=== PATIENT | male | born 1950 | race Caucasian/White ===

== ENCOUNTER 2022-12-09 16:30 | Outpatient (OUT) | payer MEDICARE, SELFPAY ==
[2022-12-09 17:37] LABS: Prostate Specific Antigen Dx 5.65 ng/mL (<=4.00)
== END 2022-12-09 16:31 | disposition home or self-care (01) ==
PROVIDERS: PCP Family Medicine; Visit Provider Urology
DX: R97.20 Elevated prostate specific antigen [PSA] (principal)
CPT/HCPCS: 36415; 84153

== ENCOUNTER 2023-08-19 08:28 | Outpatient (OUT) | payer MEDICARE, SELFPAY ==
[2023-08-19 10:11] LABS: Prostate Specific Antigen Dx 6.82 ng/mL (<=4.00)
== END 2023-08-19 08:29 | disposition home or self-care (01) ==
LOC: LAB 08:29
PROVIDERS: PCP Family Medicine; Visit Provider Urology
DX: C61 Malignant neoplasm of prostate (principal)
CPT/HCPCS: 36415; 84153

== ENCOUNTER 2023-12-27 09:30 | Outpatient (OUT) | payer MEDICARE, SELFPAY ==
--- OUTSIDE RECORDS SUMMARY | 2023-12-27 09:41 | XMS_ITS | CCD ---
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 Name Role Phone HOUSE, DR CORTES Primary Care Unavailable HOUSE, DR COTRES Admitting Unavailable HOUSE, DR CORTES Attending Unavailable HOUSE, DR CORTES Consulting Unavailable HOUSE, DR CORTES Primary Care Unavailable HOUSE, DR CORTES Admitting Unavailable HOUSE, DR CORTES Attending Unavailable HOUSE, DR CORTES Consulting Unavailable Huber Rosas Primary Care Physician Renée Groves Unavailable MD Liu Smith Attending Provider [phone] NON STAFF Primary Care Provider Huber Miles Primary Care Physician NON STAFF Primary Care Unavailable Liu Gold Attending Unavailable Gold, Liu Admitting Unavailable HUBER ROSAS Primary Care Physician Liu GOLD Attending Unavailable GOLD, Liu Baker Attending Unavailable GOLD, Liu Baker Attending Unavailable GOLD, Liu Baker Attending Unavailable GOLD, Liu Baker Admitting Unavailable GOLD, Liu Baker Attending Unavailable GOLD, Liu Baker Referring Unavailable KY, CRUZITO Cheema Admitting Unavailable KY, CRUZITO Cheema Attending Unavailable GOLD, Liu Baker Admitting Unavailable GOLD, Liu Baker Attending Unavailable GOLD, Liu R Admitting Unavailable GOLD, Liu R Attending Unavailable GOLD, Liu R Attending Unavailable KY, CRUZITO E Attending Unavailable GOLD, Liu R Attending Unavailable GOLD, iLu R Attending Unavailable Allergies Allergy Classification Reported Allergen(s) Allergy Type Date of Onset Reaction(s) Facility (13 sources) Simvastatin; Translations: [simvastatin] Drug Allergy Malaise (finding) [facility] (1 source) Unable to Assess Drug allergy (disorder) 3 [facility] Repository Medications Current Medications Medication Drug Class(es) Dates Sig (Normalized) Sig (Original) cephalexin 500 mg oral capsule (4 sources) Cephalosporin Antibacterial Start: 07-05-2023 End: 07-12-2023 take 1 capsule by mouth every twelve hours Keflex 500 mg Cap 500 mg = 1 cap(s), Oral, q12hr, X 7 day(s), # 14 cap(s), Refills(s) 0, Pharmacy: [facility]/pharmacy #[id number], 189, cm, 04/23/23 11:48:00 EST, Height/Length Dosing, 95.2, kg, 04/23/23 11:48:00 EST, Weight Dosing Start Date: 07/05/23 Stop Date: 07/12/23 Status: Ordered Start: 09-30-2022 End: 10-07-2022 take 1 capsule by mouth every twelve hours cephalexin 500 mg Cap 500 mg = 1 cap(s), Oral, q12hr, X 7 day(s), # 14 cap(s), Refills(s) 0, Pharmacy: [facility]/pharmacy #[id number], 189, cm, 09/30/22 17:16:00 EDT, Height/Length Dosing, 98, kg, 09/30/22 17:16:00 EDT, Weight Dosing Start Date: 09/30/22 Stop Date: 10/07/22 Status: Ordered ciprofloxacin 500 mg oral tablet (6 sources) Quinolone Antimicrobial Start: 03-18-2023 End: 03-25-2023 Cipro 500 mg Tab 500 mg = 1 tab(s), Oral, q12hr, Start 3 days prior to procedure, X 7 day(s), # 14 tab(s), Refills(s) 0, Pharmacy: [facility]/pharmacy #[id number], 189, cm, 01/15/23 10:11:00 EDT, Height/Length Dosing, 95, kg, 01/15/23 10:11:00 EDT, Weight Dosing Start Date: 03/18/23 Stop Date: 03/25/23 Status: Ordered Start: 09-29-2022 take 1 tablet by hollis th once daily, then take 1 tablet by mouth once Cipro 500 mg Tab See Instructions, 1 tab po once day prior to cysto and 1 tab po once following cysto, # 2 tab(s), Refills(s) 0, Pharmacy: [facility]/pharmacy #[id number], 189, cm, 09/29/22 12:16:00 EDT, Height/Length Dosing, 98, kg, 09/29/22 12:16:00 EDT, Weight Dosing Start Date: 09/29/22 Status: Ordered 3 ml insulin, regular, human 100 unt/ml pen injector (12 sources) Insulin Start: 09-29-2022 Relion R FlexPen 100 units/mL injectable solution Refills(s) 0 Start Date: 09/29/22 Status: Ordered levoFLOXacin 500 mg oral tablet (1 source) Quinolone Antimicrobial Start: 11-16-2022 End: 12-07-2022 take 1 tablet by mouth every twenty-four hours Levaquin 500 mg Tab 500 mg = 1 tab(s), Oral, q24hr, X 21 day(s), # 21 tab(s), Refills(s) 0, Pharmacy: [facility]/pharmacy #[id number], 189, cm, 11/16/22 11:08:00 EDT, Height/Length Dosing, 95, kg, 11/16/22 11:08:00 EDT, Weight Dosing Start Date: 11/16/22 Stop Date: 12/07/22 Status: Ordered sulfamethoxazole 800 mg / trimethoprim 160 mg oral tablet (4 sources) Dihydrofolate Reductase Inhibitor Antibacterial, Sulfonamide Antimicrobial Start: 08-23-2023 End: 09-13-2023 Bactrim D.S. 800 mg-160 mg Tab 1 tab(s), Oral, BID for 21 day(s), 42 tab(s), Refill(s) 0, [facility]/pharmacy #[id number], 189, cm, 08/23/23 11:46:00 EDT, Height/Length Dosing, 97.8, kg, 08/23/23 11:46:00 EDT, Weight Dosing Start Date: 08/23/23 Stop Date: 09/13/23 Status: Ordered Start: 08-23-2023 End: 11-21-2023 Bactrim D.S. 800 mg-160 mg T ab 1 tab(s), Oral, Daily for 30 day(s), 30 tab(s), Refill(s) 2, Start taking after completion of 3 week antibiotic course., [facility]/pharmacy #[id number], 189, cm, 08/23/23 11:46:00 EDT, Height/Length Dosing, 97.8, kg, 08/23/23 11:46:00 EDT, Weight Dosing Start Date: 08/23/23 Stop Date: 11/21/23 Status: Ordered Start: 03-19-2023 End: 03-29-2023 Bactrim D.S. 800 mg-160 mg T ab 1 tab(s), Oral, BID for 10 day(s), 20 tab(s), Refill(s) 0, [facility]/pharmacy #[id number], 189, cm, 01/15/23 10:11:00 EDT, Height/Length Dosing, 95, kg, 01/15/23 10:11:00 EDT, Weight Dosing Start Date: 03/19/23 Stop Date: 03/29/23 Status: Ordered Completed/Discontinued Medications Medication Drug Class(es) Dates Sig (Normalized) Sig (Original) levothyroxine sodium 0.3 mg oral tablet (9 sources) l-Thyroxine Start: 07-26-2018 take 1 tablet by mouth once daily Synthroid 300 mcg (0.3 mg) oral tablet 300 microgram = 1 tab(s), Oral, Daily, Refills(s) 0, Thyroid Start Date: 07/26/18 Status: Ordered Problems Problem Classification Problem Date Documented Date Episodic/Chronic Cancer of prostate (4 sources) Malignant tumor of prostate; Translations: [Malignant neoplasm of prostate] Onset: 08-23-2023 04-23-2023 Chronic Diabetes mellitus without complication (13 sources) Glycosuria; Translations: [Glycosuria] Onset: 09-29-2022 Episodic Fever of unknown origin (1 source) Fever, unspecified; Translations: [FEVER UNSPECIFIED] Onset: 03-08-2022 Episodic Genitourinary symptoms and ill-defined conditions (20 sources) Microscopic hematuria; Translations: [Other microscopic hematuria] Onset: 09-29-2022 Episodic Hyperplasia of prostate (16 sources) Benign prostatic hypertrophy with outflow obstruction; Translations: [Benign prostatic hyperplasia with lower urinary tract symptoms] Onset: 09-29-2022 Chronic Inflammatory conditions of male genital organs (11 sources) Prostatitis; Translations: [Inflammatory disease of prostate, unspecified] Onset: 11-16-2022 Episodic Other male genital disorders (3 sources) Atypical small acinar proliferation of prostate 04-23-2023 Episodic Other male genital disorders (1 source) Dysplasia of prostate; Translations: [Atypical small acinar proliferation of prostate] Onset: 08-23-2023 Episodic Other screening for suspected conditions (not mental disorders or infectious disease) (16 sources) Raised prostate specific antigen; Translations: [Elevated prostate specific antigen [PSA]] Onset: 09-29-2022 Episodic Other skin disorders (4 sources) Rash and other nonspecific skin eruption; Translations: [RASH OTH NONSPECIFIC SKIN ERUPTION] Onset: 03-05-2022 Episodic Thyroid disorders (12 sources) Hypothyroidism 09-29-2022 Chronic Urinary tract infections (19 sources) Urinary tract infection, site not specified; Translations: [Urinary tract infectious disease] Onset: 06-27-2021 Episodic Results Test Name Value Interpretation Reference Range Facil ity Ambulatory Visit Summaryon 0 08-23-2023 Ambulatory Visit Summary HALINA RASHID :1950 Visit Date:08/23/2023 Ambulatory Visit Instructions Your Diagnosis Prostate cancer Atypical small acinar proliferation of prostate Urinary retention Prostatitis BPH with obstruction/lower urinary tract symptoms Microhematuria Your Care Team Attending Physician - Liu GOLD MD Primary Care Physician - HUBER ROSAS DO This Is Your Medications List sulfamethoxazole-tr imethoprim (Bactrim D.S. 800 mg-160 mg Tab) sulfamethoxazole-tr imethoprim (Bactrim D.S. 800 mg-160 mg Tab) Contact prescribing physician if questions or concerns insulin regular (Relion R FlexPen 100 units/mL injectable solution) Procedures Performed Transrectal biopsy of prostate using ultrasound guidance (04/06/2023), Cystoscopy (10/13/2022), Urodynamics (10/13/2022), Cataract extraction and insertion of intraocular lens (08/09/2018), Cataract extraction and insertion of intraocular lens, Hernia, Insertion of coronary artery stent. Discharge Vitals Heart Rate (Peripheral) 80 Respiratory Rate 16 Blood Pressure 132/84 Height 189 cm Height 74 in Weight 97.8 kg Weight 215.16 lb BMI 27.38 What to do next Scheduled Follow-Up Appointments Wednesday 10:45 AM EDT With: Liu GOLD MD Where: [facility] Patient Educationon 08-23-19 Patient Education Infectious Disease Prostatitis Prostatitis is swelling or inflammation of the prostate gland, also called the prostate. This gland is about 1.5 inches wide and 1 inch high, and it is involved in making semen. The prostate is located below a man's bladder, in front of the rectum. There are four types of prostatitis: ? Chronic prostatitis (CP), also called chronic pelvic pain syndrome (CPPS). This is the most common type of prostatitis. It is associated with increased muscle tone in the area between the hip bones (pelvic area), around the prostate. This type is also known as a pelvic floor disorder. ? Chronic bacterial prostatitis. This type usually results from an acute bacterial infection in the prostate gland that keeps coming back or has not been treated properly. The symptoms are less severe than those caused by acute bacterial prostatitis, which lasts a shorter time. ? Asymptomatic inflammatory prostatitis. This type does not have symptoms and does not need treatment. This is diagnosed when tests are done for other disorders of the urinary tract or reproductive tract. ? Acute bacterial prostatitis. This type starts quickly and results from an acute bacterial infection in the prostate gland. It is usually associated with a bladder infection, high fever, and chills. This is the least common type of prostatitis. What are the causes? Bacterial prostatitis is caused by an infection from bacteria. Chronic nonbacterial prostatitis may be caused by: ? Factors related to the nervous system. This system includes thebrain, spinal cord, and nerves. ? An autoimmune response. This happens when the body's disease-fighting system attacks healthy tissue in the body by mistake. ? Psychological factors. These have to do with how the mind works. The causes of the other types of prostatitis are usually not known. What are the signs or symptoms? Symptoms of this condition depend on the type of prostatitis you have. Acute bacterial prostatitis Symptoms may include: ? Pain or burning during urination. ? Frequent and sudden urges to urinate. ? Trouble starting to urinate. ? Fever. ? Chills. ? Pain in your muscles or joints, lower back, or lower abdomen. Other types of prostatitis Symptoms may include: ? Sudden urges to urinate, or urinating often. ? Trouble starting to urinate. ? Weak urine stream. ? Dribbling after urination. ? Discharge coming from the penis. ? Pain in the testicles, the penis, or the tip of the penis. ? Pain in the area in front of the rectum and below the scrotum (perineum). ? Pain when ejaculating. How is this diagnosed? This condition may be diagnosed based on: ? A physical and medical exam. ? A digital rectal exam. For this, the health care provider may use a finger to feel the prostate. ? A urine test to check for bacteria. ? A semen sample or blood tests. ? Ultrasound. ? Urodynamic tests to check how your body handles urine. ? Cystoscopy to look inside your bladder or inside the part of your body that drains urine from the bladder (urethra). How is this treated? Treatment for this condition depends on the type of prostatitis. Treatment may involve: ? Medicines to relieve pain or inflammation, or to help relax your muscles. ? Physical therapy. ? Heat therapy. ? Biofeedback. These techniques help you control certain body functions. ? Relaxation exercises. ? Antibiotic medicine, if your condition is caused by bacteria. ? Sitz baths. These warm water baths help to relax your pelvic floor muscles, which helps to relieve pressure on the prostate. Follow these instructions at home: Medicines ? Take [id number] and prescription medicines only as told by your health care provider. ? If you were prescribed an antibiotic medicine, take it as told by your health care provider. Do not stop using the antibiotic even if you start to feel better. Managing pain and swelling ? Take sitz baths as directed by your health care provider. For a sitz bath, sit in warm water that is deep enough to cover your hips and buttocks. ? If directed, apply heat to the affected area as often as told by your health care provider. Use the heat source that your health care provider recommends, such as a moist heat pack or a heating pad. ? Place a towel between your skin and the heat source. ? Leave the heat on for 20?30 minutes. ? Remove the heat if your skin turns bright red. This is especially important if you are unable to feel pain, heat, or cold. You may have a greater risk of getting burned. General instructions ? Do exercises as told by your health care provider, if you were prescribed physical therapy, biofeedback, or relaxation exercises. ? Keep all follow-up visits as told by your health care provider. This is important. Where to find more information ? [employer] [place] [employer] and [employer]: (more content not included)... Normal [facility] Urology Office/Clinic Noteon 08-23-2023 Urology Office/Clinic Note Chief Complaint 4m PSA ACTIVE SURVEILLANCE HPI Staff 4 month f/u with PSA for ACTIVE SURVEILLANCE Dx: prostate cancer, atypical small acinar proliferation of prostate, urinary retention, BPH with obstruction, prostatitis and microhematuria. PSA: 08/19/23 - 6.52 Pt called our office 07/05/23 c/o cloudy urine & urethral discomfort. +C&S 07/05/23. >100,000 cfu/ml Serratia marcescens. Treated with Bactrim DS BID for 7 days. Finished Bactrim. Urine was clear for 2-3 days, then returned to cloudy with odor. Has been like this since then. CIC 6-7x/day. Voids very little on his own without catheter. Denies pain/burning with cathing. Did have some bleeding yesterday while cathing himself. Does not think abx scripts are long enough for his infections. History of Present Illness Tests reviewed: reviewed UA, PSA I have reviewed the previous health record information and history for this patient from Dr. Gold. I have reviewed and verified the staff HPI to be accurate for this encounter. Review of Systems PHQ Score Initial Depression Screen Score: 0 SCORE ROS - Provider Constitutional: denies weight loss, denies hot flashes. Eyes: denies eye problems. Gastrointestinal: denies nausea, denies vomiting. Cardiovascular: denies chest pain or angina. Integumentary: no dryness Musculoskeletal: denies musculoskeletal symptoms. ENMT: denies otolaryngeal symptoms. Respiratory: no shortness of breath. Heme/Lymph: denies easy bleeding tendency, denies easy bruising tendency. Psychiatric: no confusion, no anxiety. Genitourinary: See HPI. Physical Exam Vitals & Measurements HR: 80(Peripheral) RR: 16 BP: 132/84 HT: 74 in HT: 189 cm WT: 97.8 kg WT: 215.16 lb BMI: 27.38 General Appearance: alert, no distress, well nourished, well developed male. Assessment/Plan 1. Prostate cancer (C61: Malignant neoplasm of prostate) PSA: 10/03/16 - 2.45 10/11/17 - 2.89 08/06/20 - 3.73 01/13/21 - 5.42 09/29/22 - 8.6 (prostatitis) 12/09/22 - 5.65 (after abx tx) 08/19/23 - 6.82 MRI of prostate 03/03/23 - 7 x 7 mm lesion involving the posterior lateral aspect of the right peripheral zone. S/p TRUS/bx 04/06/23 - Maria Isabel 6 (3+3) GG1. 8% of core involvement. PSA has increased from prior but may be due to infection, see #4. -Repeat PSA in 1 month, after completion of abx course -F/u in 4 mos w/ another PSA 2. 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 See #1. 3. Urinary retention (R33.9: Retention of urine, unspecified) Pt had 18 Fr catheter placed at [facility] 09/29/22 and presented to [facility] the following day for seeing blood in his catheter bag. Pt was tx'd with Keflex 500mg as a positive ucx was present at that time. S/p Urodynamics 10/13/22 - unable to void, placed with 14F coude catheter. Pt is obstructed endoscopically. MRI of prostate 03/03/23 Urinary bladder appears trabeculated with distal hydroureter. Finding suggests bladder outlet obstruction. CIC 6-7x/day (4-5x). Reports up to 8x in a 24 hr period. Minimal voids on his own. -Cont CIC 4. Prostatitis (N41.9: Inflammatory disease of prostate, unspecified) Positive UCx: 07/29/22 - (Dr Rosas's office) LARGE Leuk NEG Nitrate LARGE blood, Tx'd with Levaquin 500mg 09/29/22 and 09/30/22 - E. faecalis, tx'd with Keflex 500mg then switched to Cipro Pt had neg culture 03/2023 prior to bx. Pt was tx'd w/ Bactrim due to suspicious UA. Pt called our office 07/05/23 c/o cloudy urine and urethral discomfort. UCx >100k Serratia marcescens, tx'd w/ Bactrim DS bid x7 days. States after finishing abx course his urine was clear for 2 days but became cloudy again. UA today shows small blood and large leuks. Discussed infection may be related to CIC. -Take Bactrim DS bid x3 weeks. Then take Bactrim DS qd x3 mos. 5. 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 MRI of prostate 03/03/23 BPH changes with extruded PBH nodule causing massa effect upon the blase of the left seminal vesicle. Pt has never been on any BPH medications. 6. Microhematuria (R31.29: Other microscopic hematuria) S/p Cysto 10/13/22 - Erythematous mucosa diffusely indicative of cystitis, no bt. Follow-up With When Contact Information Liu GOLD MD, URL [facility] [address], [place] [address] [phone] Additional Instructions: 4 mos w/ 2 PSAs Patient Education Prostatitis I, Dejah Larson, personally scribed for Dr. Gold on 08/23/2023 12:28:50. . Documentation recorded by the scribeDejah, accurately reflects the services(s) I performed and decisions made by me. Authenticated by Dr. Gold on 08/23/2023 12:34:29. Problem List/Past Medical H (more content not included)... Normal [facility] Comment on above: Result Comment: Elec tronically Signed By: Liu GOLD MD\.br\Date and Time Signed: 08/23/23 12:34 EDT\.br\Electronically Co-Signed By: Dejah Larson\.br\Date and Time Co-Signed: 08/23/23 12:29 EDT Lab Reportson 08-22-2023 Lab Reports [id number] 1#[id number] Normal [facility] C Urineon 07-07-2023 Bacteria identified Cx Nom (U) Microbiology PROCEDURE: Urine Culture [R1] SOURCE: U CleanCatch BODY SITE: COLLECTED DATE/TIME: 07/05/2023 14:14 EDT RECEIVED DATE/TIME: 07/05/2023 18:21 EDT START DATE/TIME: 07/05/2023 18:21 EDT FREE TEXT SOURCE: RUSSELL WOOTEN, Liu GOLD MD, Liu Baker FINAL REPORTS Final Report [] Verified Date/Time: 07/07/2023 09:25 EDT >100,000 cfu/ml Serratia marcescens SUSCEPTIBILITY RESULTS LEGEND: S=Susceptible, N/R=Not Reported, Blank=Data not available, or drug not advisable or tested, I=Intermediate, ESBL=Extended spectrum beta-lactamase, R=Resistant, TFG=Thymidine-depen dent strain, GUS=Beta-lactamase positive, LIMA=mcg/m;(mg/L), S*=Predicted susceptible interp, R*=Predicted resistant interp Sermar Antibiotic LIMA Dilutn LIMA Interp Amikacin <=16 S Ampicillin >16 R Ampicillin/ >16/8 R Sulbactam Aztreonam <=4 S Cefazolin >16 R Cefepime <=2 S Cefoxitin 16 R* Ceftazidime <=1 S Ceftazidime/ <=8 S Avibactam Ceftriaxone <=1 S Ciprofloxacin <=1 S Ertapenem <=0.5 S Gentamicin <=4 S Levofloxacin <=2 S Meropenem <=1 S Nitrofurantoin >64 R Piperacillin/ <=16 S Tazobactam Tetracycline >8 R Tigecycline <=2 S Tobramycin <=4 S Trimethoprim/ <=2/38 S Sulfa Performing Locations R1: This test was performed at: [facility], [address] [place] [address], [id number]- , , [facility] Comment on above: Performed By: #### [id number] ####[facility] [id number] [place] [address] Ambulatory Visit Summaryon 0 04-23-2023 Ambulatory Visit Summary HALINA RASHID :1950 Visit Date:04/23/2023 Ambulatory Visit Instructions Your Diagnosis Prostate cancer Atypical small acinar proliferation of prostate Urinary retention BPH with obstruction/lower urinary tract symptoms Prostatitis Microhematuria Your Care Team Attending Physician - Liu GOLD MD Primary Care Physician - HUBER ROSAS DO This Is Your Medications List Contact prescribing physician if questions or concerns insulin regular (Relion R FlexPen 100 units/mL injectable solution) Procedures Performed Transrectal biopsy of prostate using ultrasound guidance (04/06/2023), Cystoscopy (10/13/2022), Urodynamics (10/13/2022), Cataract extraction and insertion of intraocular lens (08/09/2018), Cataract extraction and insertion of intraocular lens, Hernia, Insertion of coronary artery stent. Discharge Vitals Heart Rate (Peripheral) 70 Respiratory Rate 16 Blood Pressure 132/87 Height 189 cm Height 74 in Weight 95.2 kg Weight 209.44 lb BMI 26.65 What to do next Scheduled Follow-Up Appointments Wednesday 11:15 AM EDT With: Liu GOLD MD Where: [facility] Patient Educationon 04-23-19 24 Patient Education Oncology Prostate Cancer The prostate is a small gland that produces fluid that makes up semen (seminal fluid). It is located below the bladder in men, in front of the rectum. Prostate cancer is the abnormal growth of cells in the prostate gland. What are the causes? The exact cause of this condition is not known. What increases the risk? You are more likely to develop this condition if: ? You are 65 years of age or older. ? You have a family history of prostate cancer. ? You have a family history of breast and ovarian cancer. ? You have genes that are passed from parent to child (inherited), such as BRCA1 and BRCA2. ? You have Dick syndrome. men and men of descent are diagnosed with prostate cancer at higher rates than other men. The reasons for this are not well understood and are likely due to a combination of genetic and environmental factors. What are the signs or symptoms? Symptoms of this condition include: ? Problems with urination. This may include: ? A weak or interrupted flow of urine. ? Trouble starting or stopping urination. ? Trouble emptying the bladder all the way. ? The need to urinate more often, especially at night. ? Blood in urine or semen. ? Persistent pain or discomfort in the lower back, lower abdomen, or hips. ? Trouble getting an erection. ? Weakness or numbness in the legs or feet. How is this diagnosed? This condition can be diagnosed with: ? A digital rectal exam. For this exam, a health care provider inserts a gloved finger into the rectum to feel the prostate gland. ? A blood test called a prostate-specific antigen (PSA) test. ? A procedure in which a sample of tissue is taken from the prostate and checked under a microscope (prostate biopsy). ? An imaging test called transrectal ultrasonography. Once the condition is diagnosed, tests will be done to determine how far the cancer has spread. This is called staging the cancer. Staging may involve imaging tests, such as a bone scan, CT scan, PET scan, or MRI. Stages of prostate cancer The stages of prostate cancer are as follows: ? Stage 1 (I). At this stage, the cancer is found in the prostate only. The cancer is not visible on imaging tests, and it is usually found by accident, such as during prostate surgery. ? Stage 2 (II). At this stage, the cancer is more advanced than it is in stage 1, but the cancer has not spread outside the prostate. ? Stage 3 (III). At this stage, the cancer has spread beyond the outer layer of the prostate to nearby tissues. The cancer may be found in the seminal vesicles, which are near the bladder and the prostate. ? Stage 4 (IV). At this stage, the cancer has spread to other parts of the body, such as the lymph nodes, bones, bladder, rectum, liver, or lungs. Prostate cancer grading Prostate cancer is also graded according to how the cancer cells look under a microscope. This is called the Cantril score and the total score can range from 6?10, indicating how likely it is that the cancer will spread (metastasize) to other parts of the body. The higher the score, the greater the likelihood that the cancer will spread. ? Maria Isabel 6 or lower: This indicates that the cancer cells look similar to normal prostate cells (well differentiated). ? Cantril 7: This indicates that the cancer cells look somewhat similar to normal prostate cells (moderately differentiated). ? Cantril 8, 9, or 10: This indicates that the cancer cells look very different than normal prostate cells (poorly differentiated). How is this treated? Treatment for this condition depends on several factors, including the stage of the cancer, your age, personal preferences, and your overall health. Talk with your health care provider about treatment options that are recommended for you. Common treatments include: ? Observation for early stage prostate cancer (active surveillance). This involves having exams, blood tests, and in some cases, more biopsies. For some men, this is the only treatment needed. ? Surgery. Types of surgeries include: ? Open surgery (radical prostatectomy). In this surgery, a larger incision is made to remove the prostate. ? A laparoscopic radical prostatectomy. This is a surgery to remove the prostate and lymph nodes through several small incisions. It is often referred to as a minimally invasive surgery. ? A robotic radical prostatectomy. This is laparoscopic surgery to remove the prostate and lymph nodes with the help of robotic arms that are controlled by the surgeon. ? Cryoablation. This is surgery to freeze and destroy cancer cells. ? Radiation treatment. Types of radiation treatment include: ? External beam radiation. This type aims beams of radiation from outside the body at the prostate to destroy cancerous cells. ? Brachytherapy. This type uses radioactive needles, seeds, wires, or tubes that are implanted into the prostate gland. Like external be (more content not included)... Normal [facility] Urology Office/Clinic Noteon 04-23-2023 Urology Office/Clinic Note Chief Complaint elevated PSA HPI Staff S/P TRUS/Bx 01/15/23 DX: Urinary Retention, BPH, Elevated PSA, Prostatitis & Microscopic Hematuria CIC 4-5x daily MRI Prostate 03/03/23 Pt is here today to review path report Dysuria: no Incomplete bladder emptying: CIC 4-5x daily Hematuria: no Frequency: no Urgency: no Nocturia: 2x Stream: weak and only gets a little out Leaking: no Post void dripping: no Wearing pads/ Depends: no Urge incontinence: no Stress incontinence: no Incontinence without Sensory Awareness: no Abdominal pain: no Flank pain: no Sexual complaints: no History of Present Illness Tests reviewed: reviewed MRI and path. I have reviewed the previous health record information and history for this patient from Dr. Gold. I have reviewed and verified the staff HPI to be accurate for this encounter. There have been no associated fever, chills, flank pain, or blood in the urine. Denies any urinary infections since last encounter. Review of Systems PHQ Score Initial Depression Screen Score: 0 SCORE ROS - Provider Constitutional: denies weight loss, denies hot flashes. Eyes: denies eye problems. Gastrointestinal: denies nausea, denies vomiting. Cardiovascular: denies chest pain or angina. Integumentary: no dryness Musculoskeletal: denies musculoskeletal symptoms. ENMT: denies otolaryngeal symptoms. Respiratory: no shortness of breath. Heme/Lymph: denies easy bleeding tendency, denies easy bruising tendency. Psychiatric: no confusion, no anxiety. Genitourinary: See HPI. Physical Exam Vitals & Measurements HR: 70(Peripheral) RR: 16 BP: 132/87 HT: 74 in HT: 189 cm WT: 95.2 kg WT: 209.44 lb BMI: 26.65 General Appearance: alert, no distress, well nourished, well developed male. Assessment/Plan 1. Prostate cancer (C61: Malignant neoplasm of prostate) PSA: 10/03/16 - 2.45 10/11/17 - 2.89 08/06/20 - 3.73 01/13/21 - 5.42 09/29/22 - 8.6 (prostatitis) 12/09/22 - 5.65 (after abx tx) MRI of prostate 03/03/23 shows 7 x 7 mm lesion involving the posterior lateral aspect of the right peripheral zone. S/p TRUS/bx 04/06/23. Path reveals Cantril 6 (3+3) GG1. 8% of core involvement. The pathology report was reviewed with the patient in detail today. The report confirms evidence of malignancy. This was discussed with the patient and all questions were answered in terms the patient could understand completely, along with the implications. We will be making plans for further treatment and evaluation as the results demand. The patient understands and agrees with this plan. The pathology report, which shows the presence of prostate cancer, was disclosed to the patient in detail today. I discussed with the patient all the treatment options, including active surveillance, radical prostatectomy either by open, laparoscopic, or laparoscopic robotic technique. I discussed the radiation therapy options, including prostate brachytherapy, external beam radiation therapy, and combinations of the two. Lupron hormonal therapy was also discussed. I went over the pros and cons of each therapy today. -Proceed w/ active surveillance -Follow up in 4 months w/ PSA 2. 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 See #1. 3. Urinary retention (R33.9: Retention of urine, unspecified) Pt had 18 Fr catheter placed at OV 09/29/22 and presented to [facility] the following day for seeing blood in his catheter bag. Pt was tx'd with Keflex 500mg as a positive ucx was present at that time. S/p Urodynamics 10/13/22 - unable to void, placed with 14F coude catheter. Pt is obstructed endoscopically. MRI of prostate 03/03/23 Urinary bladder appears trabeculated with distal hydroureter. Finding suggests bladder outlet obstruction. Continues CIC 4-5x day. -Cont CIC 4. 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 MRI of prostate 03/03/23 BPH changes with extruded PBH nodule causing massa effect upon the blase of the left seminal vesicle. Pt has never been on any BPH medications. Discussed TURP along with the possible risk of not being able to void. See #3. 5. Prostatitis (N41.9: Inflammatory disease of prostate, unspecified) Positive UCx: 07/29/22 - (Dr Rosas's office) LARGE Leuk NEG Nitrate LARGE blood, Tx'd with Levaquin 500mg 09/29/22 and 09/30/22 - E. faecalis, tx'd with Keflex 500mg then switched to Cipro Pt had neg culture 03/2023 prior to bx. Pt was tx'd w/ Bactrim due to suspicious UA. Pt states his urine is no longer cloudy, denies dysuria. No UA provided today. Directed pt to call our office if burning returns. 6. Microhematuria (R31.29: Other microscopic hematuria) S/p Cysto 10/13/22 - Erythematous mucosa diffusely indicative of cys (more content not included)... Normal [facility] Comment on above: Result Comment: Elec tronically Signed By: Liu GOLD MD\.br\Date and Time Signed: 04/23/23 12:26 EST\.br\Electronically Co-Signed By: Vera Canales.br\Date and Time Co-Signed: 04/23/23 12:24 EST Prostate Histology ([facility]) on 04-14-2023 Prostate Histology Diagnosis Info Invalid Interpretation Code [facility] Comment on above: Result Comment: A:Pr ostate,Left Lateral Base:Needle Biopsy Interpretation - - Benign prostatic tissue with seminal vesicle. MicroScopic Description - B:Prostate,Left Lateral Mid:Needle Biopsy Interpretation - - Benign prostatic tissue. MicroScopic Description - C:Prostate,Left Lateral [place]:Needle Biopsy Interpretation - - Benign prostatic tissue. MicroScopic Description - D:Prostate,Left Base:Needle Biopsy Interpretation - - Benign prostatic tissue. MicroScopic Description - E:Prostate,Left Mid:Needle Biopsy Interpretation - - Atypical small acinar glands. MicroScopic Description - F:Prostate,Left [place]:Needle Biopsy Interpretation - - Benign prostatic tissue with patchy chronic inflammation. MicroScopic Description - G:Prostate,Right Base:Needle Biopsy Interpretation - - Acinar adenocarcinoma of prostate; Cantril score 6(3+3); Tumor measures 0.1 cm in length; 8% of the core involved by tumor; 1 of 1 core involved. MicroScopic Description - H:Prostate,Right Mid:Needle Biopsy Interpretation - - Benign prostatic tissue with patchy chronic inflammation. MicroScopic Description - I:Prostate,Right [place]:Needle Biopsy Interpretation - - Benign prostatic tissue. MicroScopic Description - J:Prostate,Right Lateral Base:Needle Biopsy Interpretation - - Benign prostatic tissue. MicroScopic Description - K:Prostate,Right Lateral [place]:Needle Biopsy Interpretation - - Benign prostatic tissue. MicroScopic Description - Gross Description Site ID:A color brantley-white fixative Formalin cores 1 units cm stringy Site ID:B color brantley-white fixative Formalin cores 1 units cm Site ID:C color brantley-white fixative Formalin cores 1 units cm wispy Site ID:D color brantley-white fixative Formalin cores 1 units cm Site ID:E color brantley-white fixative Formalin cores 1 units cm Site ID:F color brantley-white fixative Formalin cores 1 units cm Site ID:G color brantley-white fixative Formalin cores 1 units cm stringy Site ID:H color brantley-white fixative Formalin cores 5 units cm adhered to sponge Site ID:I color brantley-white fixative Formalin cores 1 units cm Site ID:J color brantley-white fixative Formalin cores 1 units cm partially stringy Site ID:K color brantley-white fixative Formalin cores 1 units cm Highest grade group: Maria Isabel score 3+3=6, grade group 1. Highest percentage of core involvement: 8% CPT code: 59844 x 12 Electronically signed by : on: 04/14/2023 13:46:08 Performed By: #### 1 [id number] ####[facility] [address] [place] [address] Consent for Procedure/Surger yon 04-06-2023 Consent for Procedure/Surgery [id number].. [id number] 779#1.00TIFF [facility] Consent for Treatmenton 03-22 Consent for Treatment [id number] C5#1.00TIFF Normal [facility] IntraOperative Documentson 0 04-06-2023 IntraOperative Documents [id number] 173#1.00TIFF [facility] IntraOperative Documents [id number]#1.00TIFF [facility] Main OR Intraoperative Recor don 04-06-2023 Main OR Intraoperative Record IntraOp Document Type [facility]O Summary Primary Physician: Liu GOLD MD Finalized Date/Time: 04/06/23 13:22:01 Pt. Name: HALINA RASHID /Sex: 1950 Male Med Rec #: [id number] Physician: Liu GOLD MD Financial #: [id number] Pt. Type: O Room/Bed: / Admit/Disch: 04/06/23 12:14:00 - Institution: Case Times FTURO Entry 1 Patient Times In Room 04/06/23 12:59:00 Out Room 04/06/23 13:26:00 Procedure Times Start 04/06/23 13:06:00 Stop 04/06/23 13:19:00 Anesthesia Times Last Modified By: MIKAYLA Jain RN, Joan 04/06/23 13:21:51 Case Attendance FTURO Entry 1 Entry 2 Entry 3 Case Attendee Liu GOLD MD, RN, VICENTEOR, Justine Mondragon Role Performed Surgeon - Primary Director Of [employer] - Primary Scrub - Primary Time In 04/06/23 12:59:00 04/06/23 12:59:00 04/06/23 12:59:00 Time Out 04/06/23 13:26:00 04/06/23 13:26:00 04/06/23 13:26:00 Procedure PROSTATE TRANSRECTAL PROSTATE TRANSRECTAL PROSTATE TRANSRECTAL ULTRASOUND WITH BIO(.) ULTRASOUND WITH BIO(.) ULTRASOUND WITH BIO(.) Comments Last Modified By: Cristobal VARGAS, VICENTEOR, Cristobal VARGAS, VICENTEOR, Cristobal VARGAS, VICENTEOR, Joan 04/06/23 Joan 04/06/23 Joan 04/06/23 13:21:52 13:21:52 13:21:52 Surgical Procedures FTURO Entry 1 Procedure Description Procedure PROSTATE TRANSRECTAL Modifiers . ULTRASOUND WITH BIOPSY Surgeon Description TRUS BIOPSY Primary Procedure Yes Primary Surgeon Liu GOLD MD Start 04/06/23 13:06:00 Stop 04/06/23 13:19:00 Anesthesia Type Local Surgical Service Urology Wound Class 2 - Clean-Contaminated Last Modified By: Cristobal VARGAS, VICENTEOR, Joan 04/06/23 13:21:54 General Case Data FTURO Pre-Care Text: Classifies surgical wound, implements aseptic technique, initiates traffic control Entry 1 Case Information OR URO 1 FT Case Level None Wound Class 2 - Clean-Contaminated Specialty Urology Preop Diagnosis ELEVATED PSA, PIRAD 4 Postop Same As Preop Yes LESION Postop Diagnosis ELEVATED PSA, PIRAD 4 Outcomes Met? Yes LESION Last Modified By: MIKAYLA Jain RN, Ruthann 04/06/23 12:58:26 Post-Care Text: The patient is free from signs and symptoms of infection EU IntraOp - FTURO Pre-Care Text: Implements protective measures prior to operative or invasive procedure, confirms identity before the operative or invasive procedure, verifies operative procedure, surgical site, and laterality Entry 1 EU Perioperative Protocols Procedure(s) PROSTATE TRANSRECTAL Patient Identity Birthday, ID Band ULTRASOUND WITH BIO(.) Verified (select at Check, Patient least 2): Participation Consents / H and P HandP, Surgery/Procedure Operative Site N/A Verified Consent Marking Verified Surgical Site Yes Laterality Verified n/a Verified Procedure Verified Yes Correct Patient Yes Position Verified Availability Equipment, Medication Time Out RUSSELL WOOTEN, Liu Baker, Verified (If Participants MIKAYLA Jain RN, Applicable) Giancarlo Franco Jessica D Time Out Complete 04/06/23 12:58:00 Allergies Reviewed? Yes Allergies Reviewed Self/Patient With Body Position Lateral, right side up Prep Area none Prep Agents None Skin. Condition Unable to Visualize Additional Tissue Specimens Collected Vitals - EU Blood Pressure 146/98 Pulse 104 bpm Respirations 16 br/min SPO2 EBL 0 IandO - EU Total Intake 0 mL Total Output 0 mL Outcomes Met? Yes Last Modified By: MIKAYLA Jain RN, Ruthann 04/06/23 13:01:36 Post-Care Text: The patient is free from signs and symptoms of injury caused by extraneous objects Sign Out FTURO Entry 1 Before Patient Leaves OR Nurse verbally Yes Nurse verbally n/a confirms with the confirms with the team the name of team that the procedure(s) instrument, sponge, recorded and needle counts are correct (or N/A) Nurse verbally n/a Nurse verbally n/a confirms with the confirms with the team how the team whether there specimen is labeled are any equipment (including patient problems to be name), if applicable addressed Sign Out Complete 04/06/23 13:22:00 Last Modified By: MIKAYLA Jain RN, Ruthann 04/06/23 13:21:59 Case Comments Finalized By: MIKAYLA Jain RN, Ruthann Document Signatures Signed By: MIKAYLA Jain RN, Ruthann 04/06/23 13:22 Normal [facility] Main OR Preoperative Recordo n 04-06-2023 Main OR Preoperative Record Holding Area Document Type FTURO Summary Primary Physician: Liu GOLD MD Finalized Date/Time: 04/06/23 13:00:34 Pt. Name: HALINA RASHID Deni CouchB./Sex: 1950 Male Med Rec #: [id number] Physician: Liu GOLD MD Financial #: [id number] Pt. Type: O Room/Bed: / Admit/Disch: 04/06/23 12:14:00 - Institution: Case Times Holding FTURO Pre-Care Text: Verifies consent for planned procedure, identifies individual values and wishes concerning care, includes family members in perioperative teaching Secures patient's records' belongings, and valuables, maintains patient's dignity and privacy, and maintains patient confidentiality Entry 1 In Holding 04/06/23 12:38:00 Outcomes Met? Yes Last Modified By: Fransisca Chadwick RN 04/06/23 12:39:01 Post-Care Text: The patient participates in decisions affecting his or her perioperative plan of care The patient's right to privacy is maintained Surgery Checklist FTURO Entry 1 Patient Birthday, ID Band Procedure History and Physical, Identification: Check, Patient Verification: Surgical Consent, With Participation Patient NPO after Midnight: n/a Personal Items: Cataract Lens Implant, Glasses, Jewelry Personal Items GLASSES; WATCH X 1; Limitations: UP AD ZENY Comment: BILATERAL CATARACT LENS IMPLANTS Complaints of Pain: No Pain Comment: 0/10 Skin Integrity Dry, Warm Vitals - EU Blood Pressure 146/98 Pulse 104 bpm Respirations 16 br/min SPO2 95 % Additional None RN Reviewed Yes Specimens Collected Last Modified By: Fransisca Chadwick RN 04/06/23 12:40:19 Finalized By: MIKAYLA Jain RN, Ruthann Document Signatures Signed By: Fransisca Chadwick RN 04/06/23 12:40 MIKAYLA Jain RN, Ruthann 04/06/23 13:00 Normal [facility] Operative Reporton Operative Report Patient: HALINA RASHID Age: 72 years Sex: Male : 1950 Associated Diagnoses: None Author: Liu GOLD MD Procedure Operative Information Details: Date/ Time: 04/06/2023 13:21:00. Pre-Op Dx: Elevated PSA - R97.20. Post-Op Dx: Same. Anesthesia Type: Local, Periprostatic Nerve Block. Procedure: Transrectal Ultrasound and Transrectal Ultrasound-Guided Biopsy of the Prostate. Complications: None. Risks/Benefits/Info rmed Consent: Surgical risks, benefits, details of the procedure have been explained to the patient, Full informed consent has been obtained. Intraoperative Information Prepped: The patient was brought to the office suite, placed in the modified left lateral Navarro position, The patient was draped appropriately, 80 mg Gentamicin IM injection administered. Procedure: Then 2% Xylocaine jelly was used for intrarectal anesthesia, After waiting several minutes, a well lubricated ultrasound probe was introduced per rectum, The prostate was carefully evaluated in the AP and Sagittal views. Volume: 67 CC. Specimens Removed: A total of 12 biopsies were taken, 6 from each side, and sent to pathology, 2 additional biopsies were taken from the right mid aspect corresponding to the PI-RADS 4 lesion on MRI.. Devices Implanted: None. Postoperative Information Discharge: The patient tolerated the procedure well and was discharged home in satisfactory condition, The patient was instructed to (Finish antibiotics, Avoid strenuous activity, Go to the emergency room for gross bleeding, fever, or chills). Radiology Report Procedure: Transrectal Ultrasound of the Prostate, Transrectal US guided needle biopsy of the prostate. Narrative: Ultrasound probe is introduced and performed in the longitudinal and transverse plains, The gland measures (58 MM Length, 57 MM Width, 39 MM Depth, with a calculated volume of 67 CC), The prostatic capsule and seminal vesicles appear to be within normal limits, The peripheral zone demonstrates No abnormalities, Rest of the prostate demonstrates No abnormalities, Ultrasound guidance was then utilized to obtain 12 biopsies, These were sent to pathology for evaluation, A total of 14 biopsies were taken and sent to pathology.. Normal [facility] Comment on above: Result Comment: Elec tronically Signed By: RUSSELL WOOTEN, Liu House.shaina\Date and Time Signed: 04/06/23 13:22 EST Patient Educationon 04-06-19 Patient Education Custom Transrectal Ultrasound of the Prostate with US guided biopsy ? Even though there are no visible incisions, multiple prostate biopsies have been taken through the rectum and you need to follow some instructions to minimize the risks of bleeding. ? You may see some blood in your urine and stool for up to 1 week (and blood in the semen for several months) ? Diet -You may resume your normal diet, but you may want to avoid alcohol, carbonated drinks, caffeine, and spicy foods, which may increase the irritation from the surgery. -Drink plenty of water to keep the urine clear. ? Activity -You should limit any physical activity for about 48 hours -No heavy lifting or straining (10 pound limit) -No driving a car and limit long car rides for 2 days -No strenuous exercise -No sexual intercourse until this is discussed with your doctor ? Bowels -Try to keep your bowel movements soft to minimize straining to have a bowel movement. -You may use a stool softener or over the counter laxative if needed -Difficult bowel movement may lead to straining and bleeding from the prostate ? Medications -You may resume your home medications unless instructed otherwise -Hold aspirin, ibuprofen, Coumadin (warfarin) and other blood thinners for about two days or until there is no active bleeding unless otherwise instructed -Finish the antibiotic which you have already started ? Things to watch for which would require an Emergency Room visit or call 911: (this is not a complete list) -Persistent or heavy bleeding or blood clots from the rectum or in the urine -Inability to urinate -Fever over 101.5 degrees Fahrenheit, with or without chills -Severe drug reactions with itching, hives or rash -Tenderness or swelling of the calves, chest pain, or shortness of breath ? Please call the office to arrange for your post-operative appointment in 1-2 weeks [phone] or [phone] [facility] Prostate Histology ([facility]) on 04-06-2023 PH Method of Extraction Needle Biopsy [facility] Comment on above: Performed By: #### 1 [id number] ####[facility] [address] [place] [address] PH Number of Jars 2 Invalid Interpretation Code [facility] Comment on above: Performed By: #### 1 [id number] ####[facility] [address] [place] [address] PH Specimen 1 L Apx Prostate Normal [facility] Comment on above: Performed By: #### 1 [id number] ####[facility] [address] [place] [address] PH Specimen 10 R Lat Bse Prost Normal [facility] Comment on above: Performed By: #### 1 [id number] ####[facility] [address] [place] [address] PH Specimen 11 R Lat Mid Prost Normal [facility] Comment on above: Performed By: #### 1 [id number] ####[facility] [address] [place] [address] PH Specimen 12 R Mid Prostate Normal [facility] Comment on above: Performed By: #### 1 [id number] ####[facility] [address] [place] [address] PH Specimen 2 L Base Prostate Normal [facility] Comment on above: Performed By: #### 1 [id number] ####[facility] [address] [place] [address] PH Specimen 3 L Lat Apx Prost Normal [facility] Comment on above: Performed By: #### 1 [id number] ####[facility] [address] [place] [address] PH Specimen 4 L Lat Bse Prost Normal [facility] Comment on above: Performed By: #### 1 [id number] ####[facility] [address] [place] [address] PH Specimen 5 L Mid Prostate Normal [facility] Comment on above: Performed By: #### 1 [id number] ####[facility] [address] [place] [address] PH Specimen 6 L Lat Mid Prost Normal [facility] Comment on above: Performed By: #### 1 [id number] ####[facility] [address] [place] [address] PH Specimen 7 R Apx Prostate Normal [facility] Comment on above: Performed By: #### 1 [id number] ####[facility] [address] [place] [address] PH Specimen 8 R Base Prostate Normal [facility] Comment on above: Performed By: #### 1 [id number] ####[facility] [address] [place] [address] PH Specimen 9 R Lat Apx Prost Normal [facility] Comment on above: Performed By: #### 1 [id number] ####[facility] [address] [place] [address] PH Type of Service Technical Only Normal [facility] Comment on above: Performed By: #### 1 [id number] ####[facility] [address] [place] [address] Ambulatory Visit Summaryon 0 03-25-2023 Ambulatory Visit Summary HALINA RASHID :1950 Visit Date:03/23/2023 Ambulatory Visit Instructions Your Diagnosis Recurrent UTI Your Care Team Attending Physician - CRUZITO MCPHERSON PA-C Primary Care Physician - Huber Rosas DO This Is Your Medications List ciprofloxacin (Cipro 500 mg Tab) insulin regular (Relion R FlexPen 100 units/mL injectable solution) levothyroxine (Synthroid 300 mcg (0.3 mg) oral tablet) sulfamethoxazole-tr imethoprim (Bactrim D.S. 800 mg-160 mg Tab) Procedures Performed Cystoscopy (10/13/2022), Urodynamics (10/13/2022), Cataract extraction and insertion of intraocular lens (08/09/2018), Cataract extraction and insertion of intraocular lens, Hernia, Insertion of coronary artery stent. What to do next Scheduled Follow-Up Appointments Wednesday 1:00 PM EST With: Where: [facility] Wednesday 1:00 PM EST With: Where: [facility] Wednesday 11:00 AM EST With: RUSSELL WOOTEN, Liu Baker Where: [facility] Normal [address] [place] [address]- \.br\ Medications\.br\ What How Much When Instructions\.br \ Unchanged ciprofloxacin (Cipro 500 mg Tab) 1 Tablets By Mouth Every 12 hours Duration: 7 Days Start 3 days prior to procedure \.br\ Unchanged insulin regular (Relion R FlexPen 100 units/ mL injectable solution)\.br\ Unchanged levothyroxine (Synthroid 300 mcg (0.3 mg) oral tablet) 1 Tablets By Mouth Every day\.br\ Unchanged sulfamethoxazole -trimethoprim (Bactrim D.S. 800 mg-160 mg Tab) 1 Tablets By Mouth 2 times a day Duration: 10 Days\.br\ Allergies\.br\ Zocor (Malaise)\.br\ Problems\.br\ Ongoing - Any problem that you are currently receiving treatment for.\.br\ BPH with obstruction/lowe r urinary tract symptoms\.br\ Elevated PSA\.br\ Glucosuria\.br\ Hypothyroid\.br\ Incomplete bladder emptying\.br\ Microhematuria\. br\ Prostatitis\.br\ Recurrent UTI\.br\ Urinary retention\.br\ UTI symptoms\.br\ Patient Survey\.br\ You may receive a survey via text or e-mail asking about your office visit. Please share your experience with us by completing your survey. We appreciate your feedback and thank you for choosing us for your care.\.br\ \.br\ [facility] C Urineon 03-25-2023 Bacteria identified Cx Nom (U) Microbiology PROCEDURE: Urine Culture [R1] SOURCE: U CleanCatch BODY SITE: COLLECTED DATE/TIME: 03/23/2023 11:22 EST RECEIVED DATE/TIME: 03/23/2023 17:48 EST START DATE/TIME: 03/23/2023 17:48 EST FREE TEXT SOURCE: CRUZITO MCPHERSON PA-C, PA-C, JENNIFER E FINAL REPORTS Final Report [] Verified Date/Time: 03/25/2023 06:57 EST 400 cfu/ml Mixed skin contaminants Performing Locations R1: This test was performed at: [facility], [address] [place] [address], [address] , , [facility] Comment on above: Performed By: #### 2 [id number] ####[facility] [address] [place] [id number] C Urineon 03-23-2023 Bacteria identified Cx Nom (U) Microbiology PROCEDURE: Urine Culture [R1] SOURCE: U CleanCatch BODY SITE: COLLECTED DATE/TIME: 03/19/2023 11:39 EST RECEIVED DATE/TIME: 03/19/2023 11:39 EST START DATE/TIME: 03/23/2023 15:39 EST FREE TEXT SOURCE: RUSSELL WOOTEN, Liu GOLD MD, Liu Baker FINAL REPORTS Final Report [] Verified Date/Time: 03/23/2023 15:40 EST Order completed by office in error. No specimen received. Patient credited. 03/23/2023 15:40 CSS. Performing Locations R1: This test was performed at: [facility], [address] [place] [address], [address] [place] [address], [facility] Comment on above: Performed By: #### 2 [id number] ####[facility] [address] [place], [place] [id number] RAD - MRI Reporton 3 RAD - MRI Report [id number] [facility] MR prostate wo/w conon 03-04 MR prostate wo/w con [facility] Main [address] [address] MRI Report Signed Patient: Halina Rashid MR#: [id number] : 1950 Acct:[id number] Age/Sex: 72 / M ADM Date: 03/03/23 Loc: Room: Type: [facility] Attending Dr: Liu Gold MD Copies to: Liu Gold MD Ordering Provider: Liu Gold MD Date of Service: 03/03/23 MR/MR prostate wo/w con: ELEVATED PSA EXAMINATION: MR prostate wo/w con HISTORY: Elevated PSA. COMPARISON: NONE TECHNIQUE: Multiparametric imaging of the prostate gland was performed with IV contrast. FINDINGS: Prostate Dimensions: 5.5 x 4.6 x 5.8 cm Prostate Volume: 76 mL Peripheral Zone: Heterogenous inT2 signal suggestive of prior prostatitis. A wedge-shaped area of T2 hypointensity is identified without significant restricted diffusion likely related to an area of prostatitis. A focal area of T2 hypointensity is seen involving the posterior lateral aspect of the right peripheral zone at the level of the mid gland measuring 7 x 7 mm with restricted diffusion and low ADC value. No gross extra capsular extension is seen. Please see series 4 image 14, series 650 image 12 and series 600 image 12. Central/Transitiona l Zone: BPH changes. Extruded BPH nodule is seen causing mass effect upon the base of the left seminal vesicle. Seminal Vesicles: Unremarkable Neurovascular bundles: Unremarkable. Lymphadenopathy: No evidence of lymphadenopathy. Bladder: Trabeculated without focal lesion. There appears to be distal hydroureter. Bowel: The visualized bowel is without acute abnormality. Peritoneal Cavity: No free fluid. Bones: No suspicious bony lesion. MR/MR prostate wo/w con IMPRESSION: 1. A focal area of T2 hypointensity is seen involving the posterior lateral aspect of the right peripheral zone at the level of the mid gland measuring 7 x 7 mm with restricted diffusion and low ADC value. No gross extra capsular extension is seen. Please see series 4 image 14, series 650 image 12 and series 600 image 12. This appears to be superimposed significant presumed prostatitis changes. PI-RADS4. If biopsy is being contemplated, target of this region is recommended. 2. BPH changes with extruded BPH nodule causing mass effect upon the base of the left seminal vesicle. 3. Urinary bladder appears trabeculated with distal hydroureter. Finding suggests bladder outlet obstruction. Impression dictated by: Ector Kam Jr., D.ONicolas03/04/2023 9:23 AM Dictation Location: [place] [address] Transcribed By: PWS 03/04/23922 Dictated By: Etcor Kam Jr, 03/04/23913 Signed By: 03/04/23922 [facility] ISTAT XRay CREon 03-03-2023 Creatinine [Mass/Vol] 1.7 mg/dL High 0.6-1.3 [facility] Comment on above: Result Comment: ER/E SD physician is notified/shown all ISTAT results. Critical values may be confirmed by laboratory testing if deemed necessary by ER attending doctor. Performed By: #### I SCRE #### [facility] [address] [place] [address] ISTAT GFR 42.303 [facility] Comment on above: Result Comment: PERF ORMED BY: [place] [address] PATHOLOGIST MARKING ROOM SUPERVISOR NORA ADAM M.D. Performed By: #### I SCRE #### [facility] [address] [place] [address] Ambulatory Visit Summaryon 1 Ambulatory Visit Summary HALINA RASHID :1950 Visit Date:01/15/2023 Ambulatory Visit Instructions Your Diagnosis Incomplete bladder emptying BPH with obstruction/lower urinary tract symptoms Elevated PSA Prostatitis Microhematuria Tests Performed MRI Pelvis (Soft Tissue) w/ + w/o contrast -- Results Pending -- Please visit your patient portal for your results or contact your primary care physician. Your Care Team Attending Physician - RUSSELL WOOTEN, Liu Baker Primary Care Physician - Huber Rosas DO This Is Your Medications List Contact prescribing physician if questions or concerns insulin regular (Relion R FlexPen 100 units/mL injectable solution) levothyroxine (Synthroid 300 mcg (0.3 mg) oral tablet) Procedures Performed Cystoscopy (10/13/2022), Urodynamics (10/13/2022), Cataract extraction and insertion of intraocular lens (08/09/2018), Cataract extraction and insertion of intraocular lens, Hernia, Insertion of coronary artery stent. Discharge Vitals Heart Rate (Peripheral) 97 Respiratory Rate 16 Blood Pressure 134/81 Height 189 cm Height 74 in Weight 95 kg Weight 209 lb BMI 26.6 What to do next You Need to Schedule the Following Appointments Follow Up with RUSSELL WOOTEN, LISBETH Greer When: Where: [address] [place], [place] [id number]- Medications What How Much When Instructions Unchanged insulin regular (Relion R FlexPen 100 units/ mL injectable solution) Contact prescribing physician if questions or concerns Unchanged levothyroxine (Synthroid 300 mcg (0.3 mg) oral tablet) 1 Tablets By Mouth Every day Contact prescribing physician if questions or concerns Allergies Zocor (Malaise) Problems Ongoing - Any problem that you are currently receiving treatment for. BPH with obstruction/lower urinary tract symptoms Elevated PSA Glucosuria Hypothyroid Incomplete bladder emptying Microhematuria Prostatitis Recurrent UTI UTI symptoms Patient Survey You may receive a survey via text or e-mail asking about your office visit. Please share your experience with us by completing your survey. We appreciate your feedback and thank you for choosing us for your care. Education Materials Prostate Cancer Screening Prostate cancer screening is testing that is done to check for the presence of prostate cancer in men. The prostate gland is a walnut-sized gland that is located below the bladder and in front of the rectum in males. The function of the prostate is to add fluid to semen during ejaculation. Prostate cancer is one of the most common types of cancer in men. Who should have prostate cancer screening? Screening recommendations vary based on age and other risk factors, as well as between the professional organizations who make the recommendations. In general, screening is recommended if: ? You are age 50 to 70 and have an average risk for prostate cancer. You should talk with your health care provider about your need for screening and how often screening should be done. Because most prostate cancers are slow growing and will not cause , screening in this age group is generally reserved for men who have a 10- to 15-year life expectancy. ? You are younger than age 50, and you have these risk factors: ? Having a father, brother, or uncle who has been diagnosed with prostate cancer. The risk is higher if your family member's cancer occurred at an early age or if you have multiple family members with prostate cancer at an early age. ? Being a male who is Black or is of [place]fil[place] or sub-Saharan descent. In general, screening is not recommended if: ? You are younger than age 40. ? You are between the ages of 40 and 49 and you have no risk factors. ? You are 70 years of age or older. At this age, the risks that screening can cause are greater than the benefits that it may provide. If you are at high risk for prostate cancer, your health care provider may recommend that you have screenings more often or that you start screening at a younger age. How is screening for prostate cancer done? The recommended prostate cancer screening test is a blood test called the prostate-specific antigen (PSA) test. PSA is a protein that is made in the prostate. As you age, your prostate naturally produces more PSA. Abnormally high PSA levels may be caused by: ? Prostate cancer. ? An enlarged prostate that is not caused by cancer (benign prostatic hyperplasia, or BPH). This condition is very common in older men. ? A prostate gland infection (prostatitis) or urinary tract infection. ? Certain medicines such as male hormones (like testosterone) or other medicines that raise testosterone levels. A rectal exam may be done as part of prostate cancer screening to help provide information about the size of your prostate gland. When a rectal exam is performed, it should be done after the PSA level is drawn to (more content not included)... Normal [facility] Patient Educationon 01-15- 23 Patient Education Oncology Prostate Cancer Screening Prostate cancer screening is testing that is done to check for the presence of prostate cancer in men. The prostate gland is a walnut-sized gland that is located below the bladder and in front of the rectum in males. The function of the prostate is to add fluid to semen during ejaculation. Prostate cancer is one of the most common types of cancer in men. Who should have prostate cancer screening? Screening recommendations vary based on age and other risk factors, as well as between the professional organizations who make the recommendations. In general, screening is recommended if: ? You are age 50 to 70 and have an average risk for prostate cancer. You should talk with your health care provider about your need for screening and how often screening should be done. Because most prostate cancers are slow growing and will not cause , screening in this age group is generally reserved for men who have a 10- to 15-year life expectancy. ? You are younger than age 50, and you have these risk factors: ? Having a father, brother, or uncle who has been diagnosed with prostate cancer. The risk is higher if your family member's cancer occurred at an early age or if you have multiple family members with prostate cancer at an early age. ? Being a male who is Black or is of Panfilo or sub-Saharan descent. In general, screening is not recommended if: ? You are younger than age 40. ? You are between the ages of 40 and 49 and you have no risk factors. ? You are 70 years of age or older. At this age, the risks that screening can cause are greater than the benefits that it may provide. If you are at high risk for prostate cancer, your health care provider may recommend that you have screenings more often or that you start screening at a younger age. How is screening for prostate cancer done? The recommended prostate cancer screening test is a blood test called the prostate-specific antigen (PSA) test. PSA is a protein that is made in the prostate. As you age, your prostate naturally produces more PSA. Abnormally high PSA levels may be caused by: ? Prostate cancer. ? An enlarged prostate that is not caused by cancer (benign prostatic hyperplasia, or BPH). This condition is very common in older men. ? A prostate gland infection (prostatitis) or urinary tract infection. ? Certain medicines such as male hormones (like testosterone) or other medicines that raise testosterone levels. A rectal exam may be done as part of prostate cancer screening to help provide information about the size of your prostate gland. When a rectal exam is performed, it should be done after the PSA level is drawn to avoid any effect on the results. Depending on the PSA results, you may need more tests, such as: ? A physical exam to check the size of your prostate gland, if not done as part of screening. ? Blood and imaging tests. ? A procedure to remove tissue samples from your prostate gland for testing (biopsy). This is the only way to know for certain if you have prostate cancer. What are the benefits of prostate cancer screening? ? Screening can help to identify cancer at an early stage, before symptoms start and when the cancer can be treated more easily. ? There is a small chance that screening may lower your risk of dying from prostate cancer. The chance is small because prostate cancer is a slow-growing cancer, and most men with prostate cancer from a different cause. What are the risks of prostate cancer screening? The main risk of prostate cancer screening is diagnosing and treating prostate cancer that would never have caused any symptoms or problems. This is called overdiagnosisand overtreatment. PSA screening cannot tell you if your PSA is high due to cancer or a different cause. A prostate biopsy is the only procedure to diagnose prostate cancer. Even the results of a biopsy may not tell you if your cancer needs to be treated. Slow-growing prostate cancer may not need any treatment other than monitoring, so diagnosing and treating it may cause unnecessary stress or other side effects. Questions to ask your health care provider ? When should I start prostate cancer screening? ? What is my risk for prostate cancer? ? How often do I need screening? ? What type of screening tests do I need? ? How do I get my test results? ? What do my results mean? ? Do I need treatment? Where to find more information ? The [place] [employer]: www.cancer.org ? [place] [employer]: www.auanet.org Contact a health care provider if: ? You have difficulty urinating. ? You have pain when you urinate or ejaculate. ? You have blood in your urine or semen. ? You have pain in your back or in the area of your prostate. Summary ? Prostate cancer is a common type of cancer in men. The prostate gland is located below the bladder and in front of the rectum. This gland adds flu (more content not included)... Normal [facility] Urology Office/Clinic Noteon 01-15-2023 Urology Office/Clinic Note Chief Complaint 2m PSA HPI Staff 2 month f/u for CIC and PSA. Previous dx of incomplete bladder emptying, prostatitis, microhematuria, elevated PSA and BPH with obstruction/LUTS. Current PSA done 12/09/22 is 5.65 and previous done 09/29/22 was 8.6. *Given Levaquin 500mg qd x21 days at last encounter- finished script. Odor to urine improved after abx therapy. Pt was instructed to CIC QID at time of last encounter- Pt does void on his own at times. Has been doing CIC QID. Denies complications. Does have voiding diary with him. Denies any further concerns at this time. History of Present Illness Tests reviewed: Reviewed PSA and voiding diary. I have reviewed the previous health record information and history for this patient from Dr. Gold. I have reviewed and verified the staff HPI to be accurate for this encounter. There have been no associated fever, chills, flank pain, or blood in the urine. Denies any urinary infections since last encounter. Physical Exam Vitals & Measurements HR: 97(Peripheral) RR: 16 BP: 134/81 HT: 74 in HT: 189 cm WT: 95 kg WT: 209 lb BMI: 26.6 General Appearance: alert, no distress, well nourished, well developed male. Genitourinary: normal scrotum, normal testes, normal urethra, normal epididymis, normal vas deferens/spermatic cord. Flank Pain: none. Bladder: nonpalpable. Assessment/Plan 1. Urinary retention (R33.9: Retention of urine, unspecified) Pt had 18F catheter placed at prior OV and presented to [facility] the following day for seeing blood in his catheter bag. Pt was tx'd with Keflex 500mg as a positive ucx was present at that time. S/p Urodynamics 10/13/22 - unable to void, placed with 14F coude catheter. Pt is obstructed endoscopically. Pt was instructed to CIC QID at time of last encounter. Pt does void on his own occasionally. Has been doing CIC QID, sometimes 5x/day. Denies complications. Did complete voiding diary. discussed considering a turp. he understands that he may not be able to void after a turp due to severe bladder dysfunction. -Pt wishes to cont CIC 2. 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 Pt has never been on any BPH medications. Discussed TURP along with the possible risk of not being able to void. See #1 3. Elevated PSA (R97.20: Elevated prostate specific antigen [PSA]) PSA: 10/03/16 - 2.45 10/11/17 - 2.89 08/06/20 - 3.73 01/13/21 - 5.42 09/29/22 - 8.6 (prostatitis) 12/09/22 - 5.65 (after abx tx) PSA is still elevated however could be attributed to low grade chronic infection. Discussed ordering an MRI. Bx to follow if MRI is suspicious for lesions. Pt agreeable to MRI. -MRI of prostate -Follow up pending results 4. Prostatitis (N41.9: Inflammatory disease of prostate, unspecified) Positive UCx: 07/29/22 - (Dr Rosas's office) LARGE Leuk NEG Nitrate LARGE blood, Tx'd with Levaquin 500mg 09/29/22 and 09/30/22 - E. faecalis, tx'd with Keflex 500mg then switched to Cipro Pt was started on Levaquin 500mg qd x21 days at last encounter- finished script. Odor to urine improved after abx therapy. 5. Microhematuria (R31.29: Other microscopic hematuria) S/p Cysto 10/13/22 - Erythematous mucosa diffusely indicative of cystitis, no bt. Pt denies any visible blood since last visit. Follow-up With When Contact Information RUSSELL WOOTEN, Liu Baker, URL [facility] [place] [address]- Additional Instructions: Schedule MRI Patient Education Prostate Cancer Screening I, Vera Canales, personally scribed for Dr. Gold on 01/15/2023 10:52:03. . Documentation recorded by the scribe, Vera Canales, accurately reflects the services(s) I performed and decisions made by me. Authenticated by Dr. Gold on 01/15/2023 10:55:15. Problem List/Past Medical History Ongoing BPH with obstruction/lower urinary tract symptoms Elevated PSA Glucosuria Hypothyroid Incomplete bladder emptying Microhematuria Prostatitis Recurrent UTI Urinary retention UTI symptoms Historical No qualifying data Procedure/Surgical History Cystoscopy (10/13/2022), Urodynamics (10/13/2022), Cataract extraction and insertion of intraocular lens (08/09/2018), Cataract extraction and insertion of intraocular lens, Hernia, Insertion of coronary artery stent. Medications Relion R FlexPen 100 units/mL injectable solution Synthroid 300 mcg (0.3 mg) oral tablet, 300 mcg= 1 tab(s), Oral, Daily Allergies Zocor (Malaise) Social History Tobacco Never (less than 100 in lifetime) Tobacco Use:. Never Smokeless Tobacco Use:. Household tobacco concerns: No. Yes, 01/15/2023 Family History Family history is negative Immunizations Vaccine Date Status SARS-CoV-2 (COVID-19) mRNA BNT-162b2 vax (more content not included)... Normal [facility] Comment on above: Result Comment: Elec tronically Signed By: Liu GOLD MD\.br\Date and Time Signed: 01/15/23 10:55 EDT\.br\Electronically Co-Signed By: Vera Canales.br\Date and Time Co-Signed: 01/15/23 10:52 EDT CHEMISTRYOrdered By: SYSTEM SYSTEM on 09-30-2022 Anion gap [Moles/Vol] 16 mmol/L Normal 6 - 16 mEq/L [facility] Rem[facility] Calcium [Mass/Vol] 9.5 mg/dL Normal 8.9 - 11.1 mg/dL [facility] Chloride [Moles/Vol] 97 mmol/L Low 101 - 111 mmol/ L [facility] CO2 [Moles/Vol] 25 mmol/L Normal 21 - 31 mmol/L [facility] Creatinine [Mass/Vol] 2.1 mg/dL High 0.5 - 1.3 mg/dL [facility] GFR/1.73 sq M.predicted among non-blacks MDRD (S/P/Bld) [Vol rate/Area] 33 mL/min/1.73 m2 Low >=59mL/min/1.73 m2 [facility] Chem S Glucose [Mass/Vol] 367 mg/dL High 55 - 199 mg/dL [facility] Potassium [Moles/Vol] 4.1 mmol/L Normal 3.5 - 5.3 mmol/L [facility] Sodium [Moles/Vol] 134 mmol/L Low 135 - 145 mmol/L [facility] Urea nitrogen [Mass/Vol] 29 mg/dL High 5 - 21 mg/dL [facility] Urea nitrogen/Creatinine [Mass ratio] 14 mg/mg Normal 10 - 20 [facility] Remisol HEMATOLOGYOrdered By: SYSTEM SYSTEM on 09-30-2022 Basophils/100 WBC (Bld) 0.9 % Normal 0.0 - 2.0 % [facility] HemeAutoSS Basophils/Leukocytes Auto (Bld) [Pure # fraction] 0.1 E9/L Normal 0.0 - 0.2 E9/L [facility] HemeAutoSS Eosinophils/100 WBC (Bld) 0.9 % Normal 0.0 - 8.0 % [facility] HemeAutoSS Eosinophils/Leukocyt es Auto (Bld) [Pure # fraction] 0.1 E9/L Normal 0.0 - 0.5 E9/L [facility] HemeAutoSS Lymphocytes/100 WBC (Bld) 13.2 % Low 14.0 - 50.0 % [facility] HemeAutoSS Lymphocytes/Leukocyt es Auto (Bld) [Pure # fraction] 1.4 E9/L Normal 1.0 - 4.0 E9/L [facility] HemeAutoSS Monocytes/100 WBC (Bld) 9.4 % Normal 4.0 - 14.0 % [facility]Auto[facility] Monocytes/Leukocytes Auto (Bld) [Pure # fraction] 1.0 E9/L Normal 0.2 - 1.0 E9/L [facility] Neutrophils/100 WBC (Bld) 75.6 % High 36.0 - 75.0 % [facility] Neutrophils/Leukocyt es Auto (Bld) [Pure # fraction] 7.9 E9/L High 2.0 - 7.5 E9/L [facility] HEMATOLOGYOrdered By: Tg Fung on 09-30-2022 Erythrocyte distribution width (RBC) [Ratio] 14.9 % High 10.9 - 14.2 % [facility] Hematocrit (Bld) [Volume fraction] 45.5 % Normal 37.7 - 49.0 % [facility] Hemoglobin (Bld) [Mass/Vol] 15.3 g/dL Normal 13.5 - 17.5 gm/dL [facility] MCH (RBC) [Entitic mass] 27.0 pg Normal 27.0 - 34.0 pg [facility] MCHC (RBC) [Mass/Vol] 33.6 g/dL Normal 31.4 - 36.0 gm/dL [facility] MCV (RBC) [Entitic vol] 80.4 fL Normal 80.0 - 100.0 fL [facility] Platelet mean volume (Bld) [Entitic vol] 8.5 fL Normal 6.4 - 10.8 fL [facility] Platelets (Bld) [#/Vol] 277.0 E9/L Normal 150.0 - 500.0 E9/L [facility] RBC (Bld) [#/Vol] 5.6 E12/L Normal 4.3 - 5.9 E12/L [facility] WBC corrected for nucl RBC Auto (Bld) [#/Vol] 10.4 E9/L Normal 4.0 - 11.0 E9/L [facility] URINALYSISOrdered By: Roscoe max on 09-30-2022 Bacteria LM Ql (Urine sed) 2+ /HPF Invalid Interpretation Code Trace/HPF [facility] UA Auto SS Bilirubin Ql (U) Negative (09/30/22 6:12 PM) Normal Negative [facility] SS Clarity (U) Cloudy *ABN* (09/30/22 6:12 PM) Invalid Interpretation Code Clear [facility] Color (U) Red *ABN* (09/30/22 6:12 PM) Invalid Interpretation Code Yellow [facility]A Auto SS Epithelial cells.squamous LM.HPF (Urine sed) [#/Area] 3-4 /HPF Normal 0-2/HPF [facility]A Auto SS Glucose Test strip (U) [Mass/Vol] 3+ *ABN* (09/30/22 6:12 PM) Invalid Interpretation Code Negative [facility]A Auto SS Hemoglobin Ql (U) 3+ *ABN* (09/30/22 6:12 PM) Invalid Interpretation Code Negative [facility]A Auto SS Ketones (U) [Mass/Vol] 1+ *ABN* (09/30/22 6:12 PM) Invalid Interpretation Code Negative [facility] UA Auto SS Gerrard.plasma/Lithi um.RBC (Bld) [Mass ratio] >75 /HPF Invalid Interpretation Code 0-3/HPF [facility]A Auto SS Nitrite Ql (U) Positive *ABN* (09/30/22 6:12 PM) Invalid Interpretation Code Negative [facility] UA Auto SS pH (U) 7.0 *NA* (09/30/22 6:12 PM) Invalid Interpretation Code 5.0 - 9.0 [facility] UA Auto SS Protein (U) [Mass/Vol] 3+ *ABN* (09/30/22 6:12 PM) Invalid Interpretation Code Negative [facility] UA Auto SS Specific gravity (U) [Rel density] 1.015 *NA* (09/30/22 6:12 PM) Invalid Interpretation Code 1.005 - 1.030 [facility] UA Auto SS UA Spec Desc Clean Catch (09/30/22 6:12 PM) Normal [facility] UA Auto SS Urobilinogen Qn (U) [id number] {Rowan'U}/dL Invalid Interpretation Code 0.0 - 1.0 EU/dL [facility] UA Auto SS WBC Auto Ql (U) 2+ *ABN* (09/30/22 6:12 PM) Invalid Interpretation Code Negative [facility] UA Auto SS WBC LM.HPF (Urine sed) [#/Area] 16-25 /HPF Invalid Interpretation Code 0-5/HPF [facility] UA Auto SS CHEMISTRYOrdered By: SYSTEM SYSTEM on 09-29-2022 Albumin [Mass/Vol] 3.8 g/dL Normal 3.3 - 5.0 gm/dL F [facility] Remisol Anion gap [Moles/Vol] 14 mmol/L Normal 6 - 16 mEq/L [facility] Remisol Calcium [Mass/Vol] 9.7 mg/dL Normal 8.9 - 11.1 mg/dL [facility] Remisol Chloride [Moles/Vol] 99 mmol/L Low 101 - 111 mmol/ L [facility] Remisol CO2 [Moles/Vol] 27 mmol/L Normal 21 - 31 mmol/L [facility] Remisol Creatinine [Mass/Vol] 1.9 mg/dL High 0.5 - 1.3 mg/dL [facility] Remisol GFR/1.73 sq M.predicted among non-blacks MDRD (S/P/Bld) [Vol rate/Area] 37 mL/min/1.73 m2 Low >=59mL/min/1.73 m2 [facility] Chem S Glucose [Mass/Vol] 175 mg/dL Normal 55 - 199 mg/dL [facility] Remisol Phosphate [Mass/Vol] 3.4 mg/dL Normal 1.9 - 4.6 mg/dL [facility] Rem[facility] Potassium [Moles/Vol] 4.3 mmol/L Normal 3.5 - 5.3 mmol/L [facility] Prostate specific Ag [Mass/Vol] 8.6 ng/mL High 0.1 - 3.5 ng/mL [facility] Remisol Sodium [Moles/Vol] 136 mmol/L Normal 135 - 145 mmol/L [facility] Remisol Urea nitrogen [Mass/Vol] 32 mg/dL High 5 - 21 mg/dL [facility] Remisol Urea nitrogen/Creatinine [Mass ratio] 17 mg/mg Normal 10 - 20 [facility] Remisol LYME DISEASE AB EIA W REFLEX on 03-06-2022 Lyme Total Antibody,EIA Negative Normal Negative [facility] Comment on above: Result Comment: Lyme antibodies not detected. Reflex testing is not indicated. No laboratory evidence of infection with B. burgdorferi (Lyme disease). Negative results may occur in patients recently infected (less than or equal to 14 days) with B. burgdorferi. If recent infection is suspected, repeat testing on a new sample collected in 7 to 14 days is recommended. Performed By: #### L YMA #### [facility] [address] [place] [address] Dr. Monique Bird T. PALLIDIUM AB (FTA-AB)on 05-07-2021 T pallidum Ab (FTA-Ab) Non-Reactive Normal Non Reactive [facility] Comment on above: Performed By: #### T REPP #### [facility] [address] [place] [address] Dr. Monique Bird CBC AUTO DIFFon 03-05-2022 BASO # 0.1 103/ul Normal 0.0-0.1 [facility] Comment on above: Performed By: #### C BC #### [facility] [address] [place] [address] Dr. Monique Bird Basophils/100 WBC (Bld) 0.7 % Normal 0.2-2.0 [facility] Comment on above: Performed By: #### C BC #### [facility] [address] [place] [address] Dr. Monique Bird EO # 0.1 103/ul Normal 0.0-0.7 [facility] Comment on above: Performed By: #### C BC #### [facility] [address] [place] [address] Dr. Monique Bird Eosinophils/100 WBC (Bld) 1.0 % Normal 0.9-7.0 [facility] Comment on above: Performed By: #### C BC #### [facility] [address] [place] [address] Dr. Monique Bird Erythrocyte distribution width (RBC) [Ratio] 12.5 % Normal 11.0-15.0 [facility] Comment on above: Performed By: #### C BC #### [facility] [address] [place] [address] Dr. Monique Bird Hematocrit (Bld) [Volume fraction] 36.4 % Critically low 42.0-54.0 [facility] Comment on above: Performed By: #### C BC #### [facility] [address] [place] [address] Dr. Monique Bird Hemoglobin (Bld) [Mass/Vol] 12.0 g/dL Critically low 14.0-18.0 [facility] Comment on above: Performed By: #### C BC #### [facility] [address] [place] [address] Dr. Monique Bird IG # 0.07 10e3/ul Critically high 0.00-0.03 [facility] Comment on above: Performed By: #### C BC #### [facility] [address] [place] [address] Dr. Monique Bird IG % 0.6 % Critically high 0.0-0.5 [facility] Comment on above: Performed By: #### C BC #### [facility] [address] [place] [address] Dr. Monique Bird LYMPH # 0.8 103/ul Critically low 1.2-3.8 [facility] Comment on above: Performed By: #### C BC #### [facility] [address] [place] [address] Dr. Monique Bird Lymphocytes/100 WBC (Bld) 6.3 % Critically low 20.5-60.0 [facility] Comment on above: Performed By: #### C BC #### [facility] [address] [place] [address] Dr. Monique Bird MANUAL DIFF REQ NO Normal [facility] Comment on above: Performed By: #### C BC #### [facility] [address] [place] [address] Dr. Monique Bird MCH (RBC) [Entitic mass] 27.0 pg Normal 25.9-34.0 [facility] Comment on above: Performed By: #### C BC #### [facility] [address] [address] [address] Monique Bird MCHC (RBC) [Mass/Vol] 33.0 g/dL Normal 29.9-35.2 [facility] Comment on above: Performed By: #### C BC #### [facility] [address] [address] [address] Monique Bird MCV (RBC) [Entitic vol] 82.0 fL Normal 80.0-94.0 [facility] Comment on above: Performed By: #### C BC #### [facility] [address] [place] [address] Dr. Monique Bird MONO # 1.0 103/ul Critically high 0.3-0.8 [facility] Comment on above: Performed By: #### C BC #### [facility] [address] [place] [address] Dr. Monique Bird Monocytes/100 WBC (Bld) 8.1 % Normal 1.7-12.0 [facility] Comment on above: Performed By: #### C BC #### [facility] [address] [place] [address] Dr. Monique Bird NEUT # 10.1 103/ul Critically high 1.4-6.5 [facility] Comment on above: Performed By: #### C BC #### [facility] [address] [place] [address] Dr. Monique Bird Neutrophils/100 WBC (Bld) 83.3 % Critically high 43.0-75.0 [facility] Comment on above: Performed By: #### C BC #### [facility] [address] [place] [address] Dr. Monique Bird Platelet mean volume (Bld) [Entitic vol] 9.7 fL Normal 9.5-13.5 [facility] Comment on above: Performed By: #### C BC #### [facility] [address] [address] [address] Monique Bird PLT 462 103/ul Critically high 150-450 [facility] Comment on above: Performed By: #### C BC #### [facility] [address] [place] [address] Dr. Monique Bird RBC 4.44 106/ul Critically low 4.70-6.10 [facility] Comment on above: Performed By: #### C BC #### [facility] [address] [address] [address] Monique Bird WBC 12.1 103/ul Critically high 4.0-11.0 [facility] Comment on above: Performed By: #### C BC #### [facility] [address] [place] [address] Dr. Monique Bird PROF 14(COMP METB)on 03-05- 022 Albumin [Mass/Vol] 2.6 g/dL Critically low 3.4-5.0 [facility] Comment on above: Performed By: #### C MP #### [facility] [address] [place] [address] Dr. Monique Bird Albumin/Globulin [Mass ratio] 0.5 {ratio} Normal [facility] Comment on above: Performed By: #### C MP #### [facility] [address] [place] [address] Dr. Monique Bird ALP [Catalytic activity/Vol] 114 U/L Normal 46-116 [facility] Comment on above: Performed By: #### C MP #### [facility] [address] [place] [address] Dr. Monique Bird ALT [Catalytic activity/Vol] 25 U/L Normal 16-63 [facility] Comment on above: Performed By: #### C MP #### [facility] [address] [place] [address] Dr. Monique Bird Anion gap [Moles/Vol] 13.6 mmol/L Normal [facility] Comment on above: Performed By: #### C MP #### [facility] [address] [place] [address] Dr. Monique Bird AST [Catalytic activity/Vol] 21 U/L Normal 15-37 [facility] Comment on above: Performed By: #### C MP #### [facility] [address] [address] [address] Monique Bird Bilirubin [Mass/Vol] 0.5 mg/dL Normal 0.2-1.0 [facility] Comment on above: Performed By: #### C MP #### [facility] [address] [address] [address] Monique Bird Calcium [Mass/Vol] 9.1 mg/dL Normal 8.5-10.1 [facility] Comment on above: Performed By: #### C MP #### [facility] [address] [place] [address] Dr. Monique Bird Chloride [Moles/Vol] 90 mmol/L Critically low 98-107 [facility] Comment on above: Performed By: #### C MP #### [facility] [address] [place] [address] Dr. Monique Bird CO2 [Moles/Vol] 27.6 mmol/L Normal 21.0-32.0 [facility] Comment on above: Performed By: #### C MP #### [facility] [address] [place] [address] Dr. Monique Bird Creatinine [Mass/Vol] 1.98 mg/dL Critically high 0.70-1.30 [facility] Comment on above: Performed By: #### C MP #### [facility] [address] [place] [address] Dr. Monique Bird EGFR-AF [place] 41 mL/min/1.73m2 Critically low >=60 [facility] Comment on above: Performed By: #### C MP #### [facility] [address] [place] [address] Dr. Monique Bird EGFR-NON AF [place] 33 mL/min/1.73m2 Critically low >=60 [facility] Comment on above: Performed By: #### C MP #### [facility] [address] [place] [address] Dr. Monique Bird Globulin (S) [Mass/Vol] 5.3 g/dL Normal [facility] Comment on above: Performed By: #### C MP #### [facility] [address] [address] [address] Monique Bird Glucose [Mass/Vol] 504 mg/dL Critically high 74-106 [facility] Comment on above: Performed By: #### C MP #### [facility] [address] [address] [address] Monique Bird Potassium [Moles/Vol] 5.2 mmol/L Critically high 3.5-5.1 [facility] Comment on above: Performed By: #### C MP #### [facility] [address] [place] [address] Dr. Monique Bird Protein [Mass/Vol] 7.9 g/dL Normal 6.4-8.2 [facility] Comment on above: Performed By: #### C MP #### [facility] [address] [place] [address] Dr. Monique Bird Sodium [Moles/Vol] 125 mmol/L Critically low 136-145 [facility] Comment on above: Performed By: #### C MP #### [facility] [address] [place] [address] Dr. Monique Bird Urea nitrogen [Mass/Vol] 39.0 mg/dL Critically high 7.0-18.0 [facility] Comment on above: Performed By: #### C MP #### [facility] [address] [address] [address] Monique Bird Urea nitrogen/Creatinine [Mass ratio] 19.7 mg/mg Normal [facility] Comment on above: Performed By: #### C MP #### [facility] [address] [place] [address] Dr. Monique Bird CULTURE URINEon 06-27-2021 CULTURE URINE Culture Observations: No growth Normal [facility] Comment on above: Performed By: #### U RCX #### [facility] [address] [place] [address] Dr. Monique Bird UA (CLEAN/CATCH) MICROSCOPIC IF INDICATEon 06-27-2021 Bilirubin Ql (U) Negative Normal NEGATIVE [facility] Comment on above: Performed By: #### U ARMICR #### [facility] [address] [address] [address] Monique Bird Clarity (U) CLEAR Normal CLEAR [facility] Comment on above: Performed By: #### U ARMICR #### [facility] [address] [place] [address] Dr. Monique Bird Color (U) LT. YELLOW Normal YELLOW [facility] Comment on above: Performed By: #### U ARMICR #### [facility] [address] [place] [address] Dr. Monique Bird Glucose Ql (U) >1000 Abnormal NEGATIVE [facility] Comment on above: Performed By: #### U ARMICR #### [facility] [address] [place] [address] Dr. Monique Bird Hemoglobin Ql (U) Negative Normal NEGATIVE [facility] Comment on above: Performed By: #### U ARMICR #### [facility] [address] [place] [address] Dr. Monique Bird Ketones Ql (U) Negative Normal NEGATIVE [facility] Comment on above: Performed By: #### U ARMICR #### [facility] [address] [place] [address] Dr. Monique Bird LEUKOCYTES Negative Normal NEGATIVE [facility] Comment on above: Performed By: #### U ARMICR #### [facility] [address] [place] [address] Dr. Monique Bird Nitrite Ql (U) Negative Normal NEGATIVE [facility] Comment on above: Performed By: #### U ARMICR #### [facility] [address] [address] [address] Monique Bird pH (U) 6.0 [pH] Normal 5-9 [facility] Comment on above: Performed By: #### U ARMICR #### [facility] [address] [place] [address] Dr. Monique Bird SPEC GRAVITY 1.010 Normal 1.005-<=1.025 [facility] Comment on above: Performed By: #### U ARMICR #### [facility] [address] [address] [address] Monique Bird UA PROTEIN Negative Normal NEGATIVE/ TRACE [facility] Comment on above: Performed By: #### U ARMICR #### [facility] [address] [address] [address] Monique Bird UR MICRO IND NOT INDICATED Normal [facility] Comment on above: Performed By: #### U ARMICR #### [facility] [address] [address] [address] Monique Bird Urobilinogen Qn (U) 0.2 {Rowan'U}/dL Normal 0.2 - 1. 0 [facility] Comment on above: Performed By: #### U ARMICR #### [facility] [address] [address] [address] Monique Bird Vital Signs Date Time Vital Sign Value Performing Clinician Facility 08-23-2023 11:44-0400 Blood Pressure Location Liu GOLD [facility] 08-23-2023 11:44-0400 Diastolic blood pressure 84 mm[Hg] Liu GOLD [facility] 08-23-2023 11:44-0400 Heart rate 80 /min Liu GOLD [facility] 08-23-2023 11:44-0400 Respiratory rate 16 /min Liu GOLD [facility] 08-23-2023 11:44-0400 Systolic blood pressure 132 mm[Hg] Liu GOLD [facility] 01-15-2023 10:08-0400 Diastolic blood pressure 81 mm[Hg] Liu GOLD [facility] 01-15-2023 10:08-0400 Heart rate 97 /min Liu GOLD [facility] 01-15-2023 10:08-0400 Respiratory rate 16 /min Liu GOLD [facility] 01-15-2023 10:08-0400 Systolic blood pressure 134 mm[Hg] Liu GOLD [facility] 11-16-2022 11:06-0400 Blood Pressure Location Liu GOLD [facility] 11-16-2022 11:06-0400 Diastolic blood pressure 80 mm[Hg] Liu GOLD [facility] 11-16-2022 11:06-0400 Heart rate 70 /min Liu GOLD [facility] 11-16-2022 11:06-0400 Respiratory rate 16 /min Liu GOLD [facility] 11-16-2022 11:06-0400 Systolic blood pressure 136 mm[Hg] Liu GOLD [facility] 09-30-2022 19:18-0400 Diastolic blood pressure 105 mm[Hg] Lopez Estrella [facility] 09-30-2022 19:18-0400 Heart rate 113 /min Lopez Estrella [facility] 09-30-2022 19:18-0400 Respiratory rate 18 /min Lopez Estrella [facility] 09-30-2022 19:18-0400 SaO2% (BldA) [Mass fraction] 96 % Lopez Estrella [facility] 09-30-2022 19:18-0400 Systolic blood pressure 142 mm[Hg] Lopez Estrella [facility] 09-30-2022 17:13-0400 Body temperature 98.06 [degF] Lopez Estrella [facility] 09-30-2022 17:13-0400 Diastolic blood pressure 100 mm[Hg] Lopez Estrella [facility] 09-30-2022 17:13-0400 Heart rate 122 /min Lopez Estrella [facility] 09-30-2022 17:13-0400 Respiratory rate 18 /min Lopez Estrella [facility] 09-30-2022 17:13-0400 SaO2% (BldA) [Mass fraction] 95 % Lopez Estrella [facility] 09-30-2022 17:13-0400 Systolic blood pressure 150 mm[Hg] Lopez Estrella [facility] 09-29-2022 12:13-0400 Blood Pressure Location CRUZITO MCPHERSON [facility] 09-29-2022 12:13-0400 Diastolic blood pressure 84 mm[Hg] CRUZITO MCPHERSON [facility] 09-29-2022 12:13-0400 Heart rate 74 /min CRUZITO MCPHERSON [facility] 09-29-2022 12:13-0400 Respiratory rate 16 /min CRUZITO MCPHERSON [facility] 09-29-2022 12:13-0400 Systolic blood pressure 130 mm[Hg] CRUZITO MCPHERSON [facility] Encounters Encounter Date Encounter Type Care Provider Facility Start: 12-27-2023 ambulatory Liu GOLD Facili ty:[facility] Start: 08-23-2023 End: 08-23-2023 ambulatory Liu GOLD Facility:[facility] Start: 08-23-2023 End: 08-23-2023 Patient encounter procedure Liu GOLD [facility] Start: 07-05-2023 End: 07-05-2023 Lab Drop off Liu GOLD [facility] Start: 07-05-2023 End: 07-05-2023 ambulatory Lui GOLD Facility:[facility] Start: 07-05-2023 End: 07-05-2023 Patient encounter procedure Liu GOLD [facility] Start: 05-14-2023 ambulatory Liu GOLD Facili ty:[facility] Start: 04-23-2023 End: 04-23-2023 ambulatory Liu GOLD Facility:[facility] Start: 04-06-2023 End: 04-06-2023 ambulatory Liu GOLD Facility:[facility] Start: 04-06-2023 End: 04-06-2023 Patient encounter procedure Liu GOLD [facility] Start: 03-23-2023 End: 03-23-2023 ambulatory CRUZITO MCPHERSON Facility:[facility] Start: 03-19-2023 End: 03-19-2023 Lab Drop off Liu GOLD [facility] Start: 03-19-2023 End: 03-19-2023 ambulatory Liu GOLD Facility:[facility] Start: 03-19-2023 End: 03-19-2023 Patient encounter procedure Liu GOLD [facility] Start: 03-03-2023 End: 03-03-2023 ambulatory NON STAFF Facility:[facility] Start: 03-03-2023 End: 03-03-2023 ambulatory NON STAFF [facility] Work Phone: Start: 03-03-2023 End: 03-03-2023 Patient encounter procedure MD Liu Gold Work Phone: [facility] [place] Work Phone: Start: 01-15-2023 End: 01-15-2023 ambulatory Liu GOLD Facility:[facility] Start: 01-15-2023 End: 01-15-2023 Patient encounter procedure Liu GOLD [facility] Start: 11-16-2022 End: 11-16-2022 Patient encounter procedure Liu GOLD [facility] Start: 09-30-2022 End: 09-30-2022 Emergency department patient visit Lopez Estrella [facility] Start: 09-29-2022 End: 09-29-2022 Lab Drop off CRUZITO MCPHERSON [facility] Start: 09-29-2022 End: 09-29-2022 Patient encounter procedure CRUZITO MCPHERSON [facility] Start: 03-05-2022 End: 03-06-[address] HUBER ROSAS Facility:[facility] Start: 06-27-2021 End: 06-28-[address] HUBER ROSAS Facility:[facility] Procedures Date Procedure Procedure Detail Performing Clinician Start: 04-06-2023 Transrectal biopsy o f prostate using ultrasound guidance Liu RUSSELL Start: 10-13-2022 Cystoscopy Liu PALMA BLANCA Start: 10-13-2022 Urodynamic studies Patr camille GOLD Start: 08-09-2018 Cataract extraction and insertion of intraocular lens CRUZITOLILIA MCPHERSON Cataract extraction and insertion of intraocular lens [place] Hernia of abdominal cavity (disorder) [place] Placement of stent i n coronary artery [place] Plan of Treatment Date Care Activity Detail Author Start: 03-03-2023 MR Prostate WO and W contrast IV [facility] Start: 03-03-2023 MR prostate wo/w con MR prostate wo/ w con [facility] [facility] Immunization Date Immunization Notes Care Provider Ly rivera 06-18-2020 SARS-CoV-2 (COVID-19 ) mRNA BNT-162b2 vax CRUZITO [facility] 05-28-2020 SARS-CoV-2 (COVID-19 ) mRNA BNT-162b2 vax CRUZITO [facility] Payers Date Payer Category Payer Private Health Insurance [id number] 2023 Self-pay 1959 Medicare [id number] 1959 Private Health Insurance [id number] 1950 Unknown [id number] 2.16.84 [id number] 1950 Unknown [id number] 2.16.84 [id number] 1950 Unknown [id number] 2.16.8 40.1.613480.3.579.2.727 1950 Unknown [id number] 2.16.8 40.1.390559.3.579.2.727 1950 Unknown [id number] 2.16.8 40.1.895015.3.579.2.72 1950 Unknown [id number] 2.16.8 40.1.075464.3.579.2.727 1950 Unknown [id number] 2.16.8 40.1.126630.3.579.2.727 1950 Unknown [id number] 2.16.8 40.1.221279.3.579.2.727 1950 Unknown [id number] 2.16.8 40.1.074749.3.579.2.727 1950 Unknown [id number] 2.16.8 40.1.929344.3.579.2.727 1950 Unknown [id number] 2.16.8 40.1.821556.3.579.2.727 1950 Unknown [id number] 2.16.8 40.1.607070.3.579.2.727 1950 Unknown [id number] 2.16.8 40.1.911481.3.579.2.727 1950 Unknown [id number] 2.16.8 40.1.325458.3.579.2.727 Unknown [id number] 2.16.8 40.1.693338.3.579.2.531 Social History Date Type Detail Facility Start: 09-29-2022 End: 08-23-2023 Tobacco smoking status Never smoked tobacco (finding) [facility] Tobacco smoking status Never [facility] Sex Assigned At Male [facility] Start: 1950 Sex Assigned At Male [facility] Functional Status Date Assessment Result Facility 08-23-2023 Functional Status N/A [facility] 04-06-2023 Functional Status N/A [facility] 01-15-2023 Functional Status N/A [facility] 11-16-2022 Functional Status N/A [facility] 09-30-2022 Functional Status N/A [facility] 09-29-2022 Functional Status N/A [facility] Clinical Notes 09-29-2022 to 08-23-2023 Note Date & Type Note Facility 08-23-2023 Hospital Discharge instructions Patient Education 08/23/2023 12:27:04 Prostatitis Prostatitis Prostatitis is swelling or inflammation of the prostate gland, also called the prostate. This gland is about 1.5 inches wide and 1 inch high, and it is involved in making semen. The prostate is located below a man's bladder, in front of the rectum. There are four types of prostatitis: Chronic prostatitis (CP), also called chronic pelvic pain syndrome (CPPS). This is the most common type of prostatitis. It is associated with increased muscle tone in the area between the hip bones (pelvic area), around the prostate. This type is also known as a pelvic floor disorder. Chronic bacterial prostatitis. This type usually results from an acute bacterial infection in the prostate gland that keeps coming back or has not been treated properly. The symptoms are less severe than those caused by acute bacterial prostatitis, which lasts a shorter time. Asymptomatic inflammatory prostatitis. This type does not have symptoms and does not need treatment. This is diagnosed when tests are done for other disorders of the urinary tract or reproductive tract. Acute bacterial prostatitis. This type starts quickly and results from an acute bacterial infection in the prostate gland. It is usually associated with a bladder infection, high fever, and chills. This is the least common type of prostatitis. What are the causes? Bacterial prostatitis is caused by an infection from bacteria. Chronic nonbacterial prostatitis may be caused by: Factors related to the nervous system. This system includes thebrain, spinal cord, and nerves. An autoimmune response. This happens when the body's disease-fighting system attacks healthy tissue in the body by mistake. Psychological factors. These have to do with how the mind works. The causes of the other types of prostatitis are usually not known. What are the signs or symptoms? Symptoms of this condition depend on the type of prostatitis you have. Acute bacterial prostatitis Symptoms may include: Pain or burning during urination. Frequent and sudden urges to urinate. Trouble starting to urinate. Fever. Chills. Pain in your muscles or joints, lower back, or lower abdomen. Other types of prostatitis Symptoms may include: Sudden urges to urinate, or urinating often. Trouble starting to urinate. Weak urine stream. Dribbling after urination. Discharge coming from the penis. Pain in the testicles, the penis, or the tip of the penis. Pain in the area in front of the rectum and below the scrotum (perineum). Pain when ejaculating. How is this diagnosed? This condition may be diagnosed based on: A physical and medical exam. A digital rectal exam. For this, the health care provider may use a finger to feel the prostate. A urine test to check for bacteria. A semen sample or blood tests. Ultrasound. Urodynamic tests to check how your body handles urine. Cystoscopy to look inside your bladder or inside the part of your body that drains urine from the bladder (urethra). How is this treated? Treatment for this condition depends on the type of prostatitis. Treatment may involve: Medicines to relieve pain or inflammation, or to help relax your muscles. Physical therapy. Heat therapy. Biofeedback. These techniques help you control certain body functions. Relaxation exercises. Antibiotic medicine, if your condition is caused by bacteria. Sitz baths. These warm water baths help to relax your pelvic floor muscles, which helps to relieve pressure on the prostate. Follow these instructions at home: Medicines Take rify-ljz-uybxxtg and prescription medicines only as told by your health care provider. If you were prescribed an antibiotic medicine, take it as told by your health care provider. Do not stop using the antibiotic even if you start to feel better. Managing pain and swelling Take sitz baths as directed by your health care provider. For a sitz bath, sit in warm water that is deep enough to cover your hips and buttocks. If directed, apply heat to the affected area as often as told by your health care provider. Use the heat source that your health care provider recommends, such as a moist heat pack or a heating pad. ?Place a towel between your skin and the heat source. ?Leave the heat on for 20 30 minutes. ?Remove the heat if your skin turns bright red. This is especially important if you are unable to feel pain, heat, or cold. You may have a greater risk of getting burned. General instructions Do exercises as told by your health care provider, if you were prescribed physical therapy, biofeedback, or relaxation exercises. Keep all follow-up visits as told by your health care provider. This is important. Where to find more information National [place] of [employer] and Digestive and Kidney Diseases: https://www.niddk.nih.gov Contact a health care provider if: Your symptoms get worse. You have a fever. Get help right away if: You have chills. You feel light-headed or feel like you may faint. You cannot urinate. You have blood or blood clots in your urine. Summary Prostatitis is swelling or inflammation of the prostate gland. Treatment for this condition depends on the type of prostatitis. Take lurf-oeu-rpqrblo and prescription medicines only as told by your health care provider. Get help right away of you have chills, feel light-headed, feel like you may faint, cannot urinate, or have blood or blood clots in your urine. This information is not intended to replace advice given to you by your health care provider. Make sure you discuss any questions you have with your health care provider. Document Revised: 04/12/2020 Document Reviewed: 04/12/2020 [employer] Patient Education 2022 [employer]. Follow Up Care 04/23/2023 12:26:11 With:RUSSELL WOOTEN, Liu Baker, URL Address: [facility] [address] , [place] [address]- [phone] When: Unknown Comments:4 mos w/ 2 PSAs [facility] 04-06-2023 Hospital Discharge instructions Patient Education 04/06/2023 13:19:01 [facility] - Transrectal Ultrasound of the Prostate with US guided biopsy Discharge Instructions (CUSTOM) Transrectal Ultrasound of the Prostate with US guided biopsy Even though there are no visible incisions, multiple prostate biopsies have been taken through the rectum and you need to follow some instructions to minimize the risks of bleeding. You may see some blood in your urine and stool for up to 1 week (and blood in the semen for several months) Diet -You may resume your normal diet, but you may want to avoid alcohol, carbonated drinks, caffeine, and spicy foods, which may increase the irritation from the surgery. -Drink plenty of water to keep the urine clear. Activity -You should limit any physical activity for about 48 hours -No heavy lifting or straining (10 pound limit) -No driving a car and limit long car rides for 2 days -No strenuous exercise -No sexual intercourse until this is discussed with your doctor Bowels -Try to keep your bowel movements soft to minimize straining to have a bowel movement. -You may use a stool softener or over the counter laxative if needed -Difficult bowel movement may lead to straining and bleeding from the prostate Medications -You may resume your home medications unless instructed otherwise -Hold aspirin, ibuprofen, Coumadin (warfarin) and other blood thinners for about two days or until there is no active bleeding unless otherwise instructed -Finish the antibiotic which you have already started Things to watch for which would require an Emergency Room visit or call 911: (this is not a complete list) -Persistent or heavy bleeding or blood clots from the rectum or in the urine -Inability to urinate -Fever over 101.5 degrees Fahrenheit, with or without chills -Severe drug reactions with itching, hives or rash -Tenderness or swelling of the calves, chest pain, or shortness of breath Please call the office to arrange for your post-operative appointment in 1-2 weeks [phone] or [phone] Follow Up Care 03/18/2023 10:49:08 With:Liu GOLD Address: [facility] [address], [place] [address]- Business (1) When: Unknown Comments:Keep scheduled appointment [facility] 04-06-2023 Note [id number] [facility] 01-15-2023 Hospital Discharge instructions Patient Education 01/15/2023 10:47:57 Prostate Cancer Screening Prostate Cancer Screening Prostate cancer screening is testing that is done to check for the presence of prostate cancer in men. The prostate gland is a walnut-sized gland that is located below the bladder and in front of the rectum in males. The function of the prostate is to add fluid to semen during ejaculation. Prostate cancer is one of the most common types of cancer in men. Who should have prostate cancer screening? Screening recommendations vary based on age and other risk factors, as well as between the professional organizations who make the recommendations. In general, screening is recommended if: You are age 50 to 70 and have an average risk for prostate cancer. You should talk with your health care provider about your need for screening and how often screening should be done. Because most prostate cancers are slow growing and will not cause , screening in this age group is generally reserved for men who have a 10- to 15-year life expectancy. You are younger than age 50, and you have these risk factors: ?Having a father, brother, or uncle who has been diagnosed with prostate cancer. The risk is higher if your family member's cancer occurred at an early age or if you have multiple family members with prostate cancer at an early age. ?Being a male who is Black or is of [place] or sub-Saharan descent. In general, screening is not recommended if: You are younger than age 40. You are between the ages of 40 and 49 and you have no risk factors. You are 70 years of age or older. At this age, the risks that screening can cause are greater than the benefits that it may provide. If you are at high risk for prostate cancer, your health care provider may recommend that you have screenings more often or that you start screening at a younger age. How is screening for prostate cancer done? The recommended prostate cancer screening test is a blood test called the prostate-specific antigen (PSA) test. PSA is a protein that is made in the prostate. As you age, your prostate naturally produces more PSA. Abnormally high PSA levels may be caused by: Prostate cancer. An enlarged prostate that is not caused by cancer (benign prostatic hyperplasia, or BPH). This condition is very common in older men. A prostate gland infection (prostatitis) or urinary tract infection. Certain medicines such as male hormones (like testosterone) or other medicines that raise testosterone levels. A rectal exam may be done as part of prostate cancer screening to help provide information about the size of your prostate gland. When a rectal exam is performed, it should be done after the PSA level is drawn to avoid any effect on the results. Depending on the PSA results, you may need more tests, such as: A physical exam to check the size of your prostate gland, if not done as part of screening. Blood and imaging tests. A procedure to remove tissue samples from your prostate gland for testing (biopsy). This is the only way to know for certain if you have prostate cancer. What are the benefits of prostate cancer screening? Screening can help to identify cancer at an early stage, before symptoms start and when the cancer can be treated more easily. There is a small chance that screening may lower your risk of dying from prostate cancer. The chance is small because prostate cancer is a slow-growing cancer, and most men with prostate cancer from a different cause. What are the risks of prostate cancer screening? The main risk of prostate cancer screening is diagnosing and treating prostate cancer that would never have caused any symptoms or problems. This is called overdiagnosisand overtreatment. PSA screening cannot tell you if your PSA is high due to cancer or a different cause. A prostate biopsy is the only procedure to diagnose prostate cancer. Even the results of a biopsy may not tell you if your cancer needs to be treated. Slow-growing prostate cancer may not need any treatment other than monitoring, so diagnosing and treating it may cause unnecessary stress or other side effects. Questions to ask your health care provider When should I start prostate cancer screening? What is my risk for prostate cancer? How often do I need screening? What type of screening tests do I need? How do I get my test results? What do my results mean? Do I need treatment? Where to find more information The [place] [employer]: www.cancer.org [place] [employer]: www.auanet.org Contact a health care provider if: You have difficulty urinating. You have pain when you urinate or ejaculate. You have blood in your urine or semen. You have pain in your back or in the area of your prostate. Summary Prostate cancer is a common type of cancer in men. The prostate gland is located below the bladder and in front of the rectum. This gland adds fluid to semen during ejaculation. Prostate cancer screening may identify cancer at an early stage, when the cancer can be treated more easily and is less likely to have spread to other areas of the body. The prostate-specific antigen (PSA) test is the recommended screening test for prostate cancer, but it has associated risks. Discuss the risks and benefits of prostate cancer screening with your health care provider. If you are age 70 or older, the risks that screening can cause are greater than the benefits that it may provide. This information is not intended to replace advice given to you by your health care provider. Make sure you discuss any questions you have with your health care provider. Document Revised: 09/01/2021 Document Reviewed: 09/01/2021 [employer] Patient Education 2022 [employer]. Follow Up Care 11/16/2022 12:16:28 With:RUSSELL WOOTEN, Liu Baker, URL Address: [address] [place] [phone]- When: Unknown [facility] 11-16-2022 Hospital Discharge instructions Patient Education 11/16/2022 11:39:28 Acute Urinary Retention, Male Acute Urinary Retention, Male Acute urinary retention is a condition in which a person is unable to pass urine or can only pass a little urine. This condition can happen suddenly and last for a short time. If left untreated, it can become long-term (chronic) and result in kidney damage or other serious complications. What are the causes? This condition may be caused by: Obstruction or narrowing of the tube that drains the bladder (urethra). This may be caused by surgery, problems with nearby organs, or injury to the bladder or urethra. Problems with the nerves in the bladder. Tumors in the area of the pelvis, bladder, or urethra. Certain medicines. Bladder or urinary tract infection. Constipation. What increases the risk? This condition is more likely to develop in older men. As men age, their prostate may become larger and may start to press or squeeze on the bladder or the urethra. Other chronic health conditions can increase the risk of acute urinary retention. These include: Diseases such as multiple sclerosis. Spinal cord injuries. Diabetes. Degenerative cognitive conditions, such as delirium or dementia. Psychological conditions. A man may hold his urine due to trauma or because he does not want to use the bathroom. What are the signs or symptoms? Symptoms of this condition include: Trouble urinating. Pain in the lower abdomen. How is this diagnosed? This condition is diagnosed based on a physical exam and your medical history. You may also have other tests, including: An ultrasound of the bladder or kidneys or both. Blood tests. A urine analysis. Additional tests may be needed, such as a CT scan, MRI, and kidney or bladder function tests. How is this treated? Treatment for this condition may include: Medicines. Placing a thin, sterile tube (catheter) into the bladder to drain urine out of the body. This is called an indwelling urinary catheter. After it is inserted, the catheter is held in place with a small balloon that is filled with sterile water. Urine drains from the catheter into a collection bag outside of the body. Behavioral therapy. Treatment for other conditions. If needed, you may be treated in the hospital for kidney function problems or to manage other complications. Follow these instructions at home: Medicines Take rieu-cxl-moubdlo and prescription medicines only as told by your health care provider. Avoid certain medicines, such as decongestants, antihistamines, and some prescription medicines. Do not take any medicine unless your health care provider approves. If you were prescribed an antibiotic medicine, take it as told by your health care provider. Do not stop using the antibiotic even if you start to feel better. General instructions Do not use any products that contain nicotine or tobacco. These products include cigarettes, chewing tobacco, and vaping devices, such as e-cigarettes. If you need help quitting, ask your health care provider. Drink enough fluid to keep your urine pale yellow. If you have an indwelling urinary catheter, follow the instructions from your health care provider. Monitor any changes in your symptoms. Tell your health care provider about any changes. If instructed, monitor your blood pressure at home. Report changes as told by your health care provider. Keep all follow-up visits. This is important. Contact a health care provider if: You have uncomfortable bladder contractions that you cannot control (spasms). You leak urine with the spasms. Get help right away if: You have chills or a fever. You have blood in your urine. You have a catheter and the following happens: ?Your catheter stops draining urine. ?Your catheter falls out. Summary Acute urinary retention is a condition in which a person is unable to pass urine or can only pass a little urine. If left untreated, this condition can result in kidney damage or other serious complications. An enlarged prostate may cause this condition. As men age, their prostate gland may become larger and may press or squeeze on the bladder or the urethra. Treatment for this condition may include medicines and placement of an indwelling urinary catheter. Monitor any changes in your symptoms. Tell your health care provider about any changes. This information is not intended to replace advice given to you by your health care provider. Make sure you discuss any questions you have with your health care provider. Document Revised: 11/27/2020 Document Reviewed: 11/27/2020 [employer] Patient Education 2022 [employer]. Follow Up Care 10/13/2022 15:11:59 With:RUSSELL WOOTEN, Liu Baker, URL Address: [facility] [address] , [place] [phone] When: Unknown Comments:2 months w/ PSA [facility] 09-30-2022 Hospital Discharge instructions Patient Education 09/30/2022 19:11:01 Urinary Tract Infection, Adult Urinary Tract Infection, Adult A urinary tract infection (UTI) is an infection of any part of the urinary tract. The urinary tract includes the kidneys, ureters, bladder, and urethra. These organs make, store, and get rid of urine in the body. An upper UTI affects the ureters and kidneys. A lower UTI affects the bladder and urethra. What are the causes? Most urinary tract infections are caused by bacteria in your genital area around your urethra, where urine leaves your body. These bacteria grow and cause inflammation of your urinary tract. What increases the risk? You are more likely to develop this condition if: You have a urinary catheter that stays in place. You are not able to control when you urinate or have a bowel movement (incontinence). You are female and you: ?Use a spermicide or diaphragm for control. ?Have low estrogen levels. ?Are . You have certain genes that increase your risk. You are sexually active. You take antibiotic medicines. You have a condition that causes your flow of urine to slow down, such as: ?An enlarged prostate, if you are male. ?Blockage in your urethra. ?A kidney stone. ?A nerve condition that affects your bladder control (neurogenic bladder). ?Not getting enough to drink, or not urinating often. You have certain medical conditions, such as: ?Diabetes. ?A weak disease-fighting system (immunesystem). ?Sickle cell disease. ?Gout. ?Spinal cord injury. What are the signs or symptoms? Symptoms of this condition include: Needing to urinate right away (urgency). Frequent urination. This may include small amounts of urine each time you urinate. Pain or burning with urination. Blood in the urine. Urine that smells bad or unusual. Trouble urinating. Cloudy urine. Vaginal discharge, if you are female. Pain in the abdomen or the lower back. You may also have: Vomiting or a decreased appetite. Confusion. Irritability or tiredness. A fever or chills. Diarrhea. The first symptom in older adults may be confusion. In some cases, they may not have any symptoms until the infection has worsened. How is this diagnosed? This condition is diagnosed based on your medical history and a physical exam. You may also have other tests, including: Urine tests. Blood tests. Tests for STIs (sexually transmitted infections). If you have had more than one UTI, a cystoscopy or imaging studies may be done to determine the cause of the infections. How is this treated? Treatment for this condition includes: Antibiotic medicine. Kiac-szn-utdkblf medicines to treat discomfort. Drinking enough water to stay hydrated. If you have frequent infections or have other conditions such as a kidney stone, you may need to see a health care provider who specializes in the urinary tract (urologist). In rare cases, urinary tract infections can cause sepsis. Sepsis is a life-threatening condition that occurs when the body responds to an infection. Sepsis is treated in the hospital with IV antibiotics, fluids, and other medicines. Follow these instructions at home: Medicines Take kzng-njs-nfpahpa and prescription medicines only as told by your health care provider. If you were prescribed an antibiotic medicine, take it as told by your health care provider. Do not stop using the antibiotic even if you start to feel better. General instructions Make sure you: ?Empty your bladder often and completely. Do not hold urine for long periods of time. ?Empty your bladder after sex. ?Wipe from front to back after urinating or having a bowel movement if you are female. Use each tissue only one time when you wipe. Drink enough fluid to keep your urine pale yellow. Keep all follow-up visits. This is important. Contact a health care provider if: Your symptoms do not get better after 1 2 days. Your symptoms go away and then return. Get help right away if: You have severe pain in your back or your lower abdomen. You have a fever or chills. You have nausea or vomiting. Summary A urinary tract infection (UTI) is an infection of any part of the urinary tract, which includes the kidneys, ureters, bladder, and urethra. Most urinary tract infections are caused by bacteria in your genital area. Treatment for this condition often includes antibiotic medicines. If you were prescribed an antibiotic medicine, take it as told by your health care provider. Do not stop using the antibiotic even if you start to feel better. Keep all follow-up visits. This is important. This information is not intended to replace advice given to you by your health care provider. Make sure you discuss any questions you have with your health care provider. Document Revised: 10/18/2020 Document Reviewed: 10/18/2020 [employer] Patient Education 2022 [employer]. 09/30/2022 19:11:01 Hematuria, Adult Hematuria, Adult Hematuria is blood in the urine. Blood may be visible in the urine, or it may be identified with a test. This condition can be caused by infections of the bladder, urethra, kidney, or prostate. Other possible causes include: Kidney stones. Cancer of the urinary tract. Too much calcium in the urine. Conditions that are passed from parent to child (inherited conditions). Exercise that requires a lot of energy. Infections can usually be treated with medicine, and a kidney stone usually will pass through your urine. If neither of these is the cause of your hematuria, more tests may be needed to identify the cause of your symptoms. It is very important to tell your health care provider about any blood in your urine, even if it is painless or the blood stops without treatment. Blood in the urine, when it happens and then stops and then happens again, can be a symptom of a very serious condition, including cancer. There is no pain in the initial stages of many urinary cancers. Follow these instructions at home: Medicines Take jjgc-phx-qqysnie and prescription medicines only as told by your health care provider. If you were prescribed an antibiotic medicine, take it as told by your health care provider. Do not stop taking the antibiotic even if you start to feel better. Eating and drinking Drink enough fluid to keep your urine pale yellow. It is recommended that you drink 3 4 quarts (2.8 3.8 L) a day. If you have been diagnosed with an infection, drinking cranberry juice in addition to large amounts of water is recommended. Avoid caffeine, tea, and carbonated beverages. These tend to irritate the bladder. Avoid alcohol because it may irritate the prostate (in males). General instructions If you have been diagnosed with a kidney stone, follow your health care provider's instructions about straining your urine to catch the stone. Empty your bladder often. Avoid holding urine for long periods of time. If you are female: ?After a bowel movement, wipe from front to back and use each piece of toilet paper only once. ?Empty your bladder before and after sex. Pay attention to any changes in your symptoms. Tell your health care provider about any changes or any new symptoms. It is up to you to get the results of any tests. Ask your health care provider, or the department that is doing the test, when your results will be ready. Keep all follow-up visits. This is important. Contact a health care provider if: You develop back pain. You have a fever or chills. You have nausea or vomiting. Your symptoms do not improve after 3 days. Your symptoms get worse. Get help right away if: You develop severe vomiting and are unable to take medicine without vomiting. You develop severe pain in your back or abdomen even though you are taking medicine. You pass a large amount of blood in your urine. You pass blood clots in your urine. You feel very weak or like you might faint. You faint. Summary Hematuria is blood in the urine. It has many possible causes. It is very important that you tell your health care provider about any blood in your urine, even if it is painless or the blood stops without treatment. Take nqve-mdq-oihmqkn and prescription medicines only as told by your health care provider. Drink enough fluid to keep your urine pale yellow. This information is not intended to replace advice given to you by your health care provider. Make sure you discuss any questions you have with your health care provider. Document Revised: 11/06/2020 Document Reviewed: 11/06/2020 [employer] Patient Education 2022 [employer]. Follow Up Care 09/30/2022 17:11:09 With:Huber Rosas Address: [address] [place], [place] [id number] Business (1) When:10/03/2022 19:10:51 Comments:Call the office of your primary care doctor to arrange for follow-up within the above-stated timeframe. Follow-up with your primary care doctor about this ED visit. You should review your labs, imaging, and diagnoses from this ED visit with your primary care physician. If you were prescribed medications you should discuss possible side-effects and drug interactions with your pharmacist. Call 911 or go to the nearest Emergency Department if you develop any new or worsening symptoms. [facility] 09-30-2022 Evaluation + Plan note Extrac gopal from: Title:ED Note Author:Talat Bermudez PA-C e:09/30/22 Urinary tract infection (N39 .0: Urinary tract infection, site not specified) Orders: cephalexin, 500 mg = 1 cap(s), Oral, q12hr, X 7 day(s), # 14 cap(s), Refills(s) 0, Pharmacy: [facility]/pharmacy #[id number], 189, cm, 09/30/22 17:16:00 EDT, Height/Length Dosing, 98, kg, 09/30/22 17:16:00 EDT, Weight Dosing cephalexin, 500 mg = 1 cap(s), Cap, Oral, Once, Stop date 09/30/22 19:09:00 EDT, STAT, Start date 09/30/22 19:09:00 EDT, 09/30/22 19:09:00 EDT Automated Diff Basic Metabolic Panel CBC w/ Auto Diff eGFR Future Appointments Appointment Date:10/06/2022 09:30:00 AM Scheduled Provider: Location:[facility] Appointment Type:Urology CALL PAT FT Appointment Date:10/13/2022 01:00:00 PM Scheduled Provider: Location:[facility] Appointment Type:Urology FT Appointment Date:10/13/2022 02:30:00 PM Scheduled Provider: Location:[facility] Appointment Type:Urology FT Diagnostic Tests Pending * Urine Culture 09/30/22 [facility]07-[facility]2023 Hospital Discharge instructions Patient Education 09/29/2022 12:59:34 Urodynamic Testing Urodynamic Testing Urodynamic tests are done to determine how well your lower urinary tract is working. The lower urinary tract includes your bladder and the part of your body that drains urine from the bladder (urethra). When your kidneys filter your blood, urine is stored in your bladder until you feel the urge to urinate. Urination requires coordination between the nerves and muscles of your bladder and urethra. When your lower urinary tract is working well, you should be able to: Start urinating when your bladder is full. Empty your bladder completely. Control the flow of your urine. Why do I need urodynamic testing? You may need urodynamic testing to help find the cause of any of these problems: Leaking urine (incontinence). Problems starting or stopping your urine flow. Frequent or painful urination. Frequent urinary tract infections. Being unable to empty your bladder completely. Having strong urges to pass urine (urgency). Having a weak flow of urine. What are the risks? Generally, these tests are safe. However, some of the tests have risks, including: Discomfort. Frequent urge to urinate. Bleeding. Infection. Allergic reactions to medicines or dyes (contrast material). What happens before the test? Ask your health care provider about changing or stopping your regular medicines. This is especiallyimportant if you are taking diabetes medicines or blood thinners. You may be asked to avoid urinating before coming to the test so that you arrive with a full bladder. Tell a health care provider about: ?Any allergies you have. ?All medicines you are taking, including vitamins, herbs, eye drops, creams, and qnmn-uvf-mcaroqy medicines. ?Whether you are or may be . What happens during the test? You may have various urodynamic tests. The tests may be done separately or may all be done during one visit. You may be given an antibiotic medicine before or after testing to help prevent infection. The types of tests that may be done include: Uroflowmetry This test measures how much urine you pass and how long it takes to pass. You will urinate into a certain type of toilet or device (flowmeter). The device will measure the volume and the time of your urine flow. These measurements will be sent to a computer that creates a graph of your urine flow. Postvoid residual measurement This test measures how much urine is left in your bladder after you urinate. The test may be done with ultrasound. In this method, sound waves and a computer will be used to create an image of your bladder. The test can also be done by inserting a thin, flexible tube (catheter) into your bladder after youurinate. The remaining urine will be removed through the catheter so it can be measured. Remaining urine will be measured in milliliters (mL). If you have more than 100 mL left in your bladder after you urinate, your bladder is not emptying as it should. Cystometric testing This test uses a type of bladder catheter that can measure pressure. You may be given a medicine to numb the area (local anesthetic). The area around the opening of your urethra will be cleaned. A urinary catheter will be passed through your urethra into your bladder and used to empty your bladder completely. A measuring catheter will be placed, and your bladder will be filled with warm, germ-free (sterile)water. Pressure measurements will be taken: ?As your bladder fills. ?When you feel the need to urinate. ?As your bladder is emptied. You may be asked to cough or bear down to check for leakage. In some cases, your bladder may be filled with a material that shows up on X- rays (contrast material) so that X-ray pictures can be taken during the test. Electromyogram This test measures the electrical activity of the nerves and muscles of your bladder and the opening of your urethra. Sticky patches (electrodes) will be placed near your rectum and urethra to measure electrical activity. The measurements will show how well your nerves are communicating with your muscles. What can I expect after the test? You should be able to go home right away and do your usual activities. You may be told to drink a glass of water every 30 minutes for the first 2 hours after testing. Taking a warm bath or using warm, wet cloths (warm compresses) may relieve any discomfort near yoururethra. What do the results mean? Talk with your health care provider about what your results mean. Some common causes for abnormal results from urodynamic tests include: Enlarged prostate in men. Overactive bladder. Urinary tract infection. Nervous system diseases. Spinal cord damage. Questions to ask your health care provider Ask your health care provider, or the department that is doing the test: When will my results be ready? How will I get my results? What are my treatment options? What other tests do I need? What are my next steps? Contact a health care provider if: You have pain. You have blood in your urine. You have chills. You have a fever. Summary Urodynamic tests are done to determine how well your lower urinary tract is working. The lower urinary tract includes your bladder and urethra. You may need urodynamic testing to help find the cause of various problems with urination, such as leaking urine (incontinence) or problems starting or stopping your urine flow. You may have various urodynamic tests. The tests may be done separately or may all be done during one testing visit. Talk with your health care provider about what your results mean. Contact your health care provider if you have pain, chills, a fever, or blood in your urine. This information is not intended to replace advice given to you by your health care provider. Make sure you discuss any questions you have with your health care provider. Document Revised: 11/19/2021 Document Reviewed: 10/11/2020 [employer] Patient Education 2022 [employer]. Follow Up Care 09/24/2022 14:42:37 With:CRUZITO MCPHERSON PA-C, URL Address: [address] [place] [address]. [place] [address] When: Unknown Comments:Zheng copeland/ Dr. Gold [facility] evaluation + Plan note Future Appointments Appointment Date:10/06/2022 09:30:00 AM Scheduled Provider: Location:[facility] Appointment Type:Urology CALL PAT FT Appointment Date:10/13/2022 01:00:00 PM Scheduled Provider: Location:[facility] Appointment Type:Urology FT Appointment Date:10/13/2022 02:30:00 PM Scheduled Provider: Location:[facility] Appointment Type:Urology FT [facility] evaluation + Plan note Future Appointments Appointment Date:10/06/2022 09:30:00 AM Scheduled Provider: Location:[facility] Appointment Type:Urology CALL PAT FT Appointment Date:10/13/2022 01:00:00 PM Scheduled Provider: Location:[facility] Appointment Type:Urology FT Appointment Date:10/13/2022 02:30:00 PM Scheduled Provider: Location:[facility] Appointment Type:Urology FT Diagnostic Tests Pending * [facility] Appointment Date:01/15/2023 09:45:00 AM Scheduled Provider:Liu GOLD MD Location:[facility] Appointment Type:URO Office Visit Diagnostic Tests Pending * PSA Total 11/16/22 [facility] evaluation + Plan note Future Appointments Appointment Date:05/14/2023 11:00:00 AM Scheduled Provider:Liu GOLD MD Location:[facility] Appointment Type:URO Office Visit [facility] evaluation + Plan note Future Appointments Appointment Date:04/06/2023 01:00:00 PM Scheduled Provider: Location:[facility] Appointment Type:Urology FT Appointment Date:04/06/2023 01:00:00 PM Scheduled Provider: [facility] Type:US Prostate Urology (FT) Appointment Date:04/23/2023 11:00:00 AM Scheduled Provider:Liu GOLD MD [facility] Appoint[facility] Type:URO Office Visit Appointment Date:05/14/2023 11:00:00 AM Scheduled Provider:Liu GOLD MD Location[facility] Appointment Type:URO Office Visit Future Scheduled Tests Radiology* US Prostate, [facility] 04/06/23 [facility] evaluation + Plan note Future Appointments Appointment Date:04/06/2023 01:00:00 PM Scheduled Provider: Location:[facility] Appointment Type:Urology FT Appointment Date:04/06/2023 01:00:00 PM Scheduled Provider: Location:.UROLOGY Appointment Type:US Prostate Urology (FT) Appointment Date:04/23/2023 11:00:00 AM Scheduled Provider:Liu GOLD MD Location:[facility] Appointment Type:URO Office Visit Appointment Date:05/14/2023 11:00:00 AM Scheduled Provider:Liu GOLD MD Location[facility] Appointment Type:URO Office Visit Diagnostic Tests Pending * Urine Culture 03/19/23 Future Scheduled Tests Radiology* US Prostate, [facility] Appointment Date:04/23/2023 11:00:00 AM Scheduled Provider:Liu GOLD MD Location:[facility] Appointment Type:URO Office Visit Diagnostic Tests Pending * Prostate Histology ([facility]) [facility] Appointment Date:08/23/2023 11:15:00 AM Scheduled Provider:Liu GOLD MD Location:[facility] Appointment Type:URO Office Visit Diagnostic Tests Pending * Urine [facility]ments Appointment Date:08/23/2023 11:15:00 AM Scheduled Provider:Liu GOLD MD Location:[facility] Appointment Type:URO Office Visit [facility] evaluation + Plan note Future Appointments Appointment Date:12/27/2023 10:45:00 AM Scheduled Provider:Liu GOLD MD Location:[facility] Appointment Type:URO Office Visit Diagnostic Tests Pending * PSA Total 08/23/23 [facility] evalvyqunp noteNo assessment information available [facility] Work Phone: Hospital course Narrative No data available for this section [facility] Hospital Discharge instructions No data available for this section [facility] No data available for this section [facility] Summary Purpose Family History No Family History Records Found No data available for this section No data available for this section No data available for this section No data available for this section No Family History Records Found No data available for this section No data available for this section No data available for this section No Family History Records Found Advance Directives No Advanced Directives Records Found Advance Directive Response Recorded Date/ Time Advance Directives No January 4:36pm Chief Complaint and Reason for Visit Chief Complaint Elevated PSA Additional Source Comments (unrecognized sect ion and content) No Status Records FoundNo Status Records FoundNo Status Records Found INFORMATION SOURCE (unrecogn ized section and content) DATE CREATED AUTHOR 03/12/2022 [facility] DATE CREATED AUTHOR AUTHOR'S ORGANIZ ATION 04/10/2023 [facility] DATE CREATED AUTHOR AUTHOR'S ORGANIZ ATION 12/26/2023 [facility] Patient Care team informatio n (unrecognized section and content) Team Status: Active Member Role Status Dates NON STAFF Primary Care Provider Active Team Status: Inactive Member Role Status Dates Liu Gold MD Attending Provider Active NON STAFF Primary Care Provider Active Goals (unrecognized section and content) Goals may be documented in a n alternate section FOR RECORDS PERTAINING TO PATIENTS WHO ARE OR HAVE BEEN ENROLLED IN A CHEMICAL DEPENDENCY/SUBSTANCEABUSE PROGRAM, SOME INFORMATION MAY BE OMITTED. This clinical summary was aggregated from multiple sources. Caution should be exercised in using it in the provision of clinical care. This summary normalizes information from multiple sources, and as a consequence, information in this document may materially change the coding, format and clinical context of patient data. In addition, data may be omitted in some cases. CLINICAL DECISIONS SHOULD BE BASED ON THE PRIMARY CLINICAL RECORDS. [employer] [facility]. provides no warranty or guarantee of the accuracy or completeness of information in this document.
[2023-12-27 12:06] LABS: Prostate Specific Antigen Dx 8.86 ng/mL (<=4.00)
== END 2023-12-27 09:31 | disposition home or self-care (01) ==
LOC: LAB 09:32
PROVIDERS: PCP Family Medicine; Visit Provider Urology
DX: N42.32 Atypical small acinar proliferation of prostate (principal); C61 Malignant neoplasm of prostate; N41.9 Inflammatory disease of prostate, unspecified
CPT/HCPCS: 36415; 84153

== ENCOUNTER 2024-09-07 13:34 | Outpatient (OUT) | payer MEDICARE, SELFPAY ==
--- OUTSIDE RECORDS SUMMARY | 2024-09-07 13:38 | XMS_ITS | CCD ---
Author Organization [facility] Inform ion Partnership [facility] Care Team Providers Care Charge Coordinator Name Role Phone HOUSE, DR CORTES Primary Care Unavailable HOUSE, DR CORTES Admitting Unavailable HOUSE, DR CORTES Attending Unavailable HOUSE, DR CORTES Consulting Unavailable HOUSE, DR CORTES Primary Care Unavailable HOUSE, DR CORTES Admitting Unavailable HOUSE, DR CORTES Attending Unavailable HOUSE, DR CORTES Consulting Unavailable Huber Rosas Primary Care Physician [phone] Renée Groves Unavailable Unavailable MD Liu Gold Attending Provider NON STAFF Primary Care Provider UnavailHuber Bernstein Primary Care Physician NON STAFF Primary Care Unavailable Liu Gold Attending Unavailable Gold, Liu Enamoradoitting Unavailable HOUSEHUBER Primary Care Physician Liu GOLD Attending Unavailable GOLD, Liu Baker Admitting Unavailable GOLD, Liu Baker Attending Unavailable GOLD, Liu Baker Attending Unavailable Orzech, Radha X Attending Unavailable GOLD, Liu R Attending Unavailable GOLD, Liu R Admitting Unavailable Orzech, Radha X Admitting Unavailable Orzech, Radha X Attending Unavailable GOLD, Liu R Attending Unavailable GOLD, Liu R Attending Unavailable GOLD, Liu R Attending Unavailable GOLD, Liu R Attending Unavailable GOLD, Liu R Attending Unavailable GOLD, Liu R Admitting Unavailable GOLD, Liu R Attending Unavailable Allergies Allergy Classification Reported Allergen(s) Allergy Type Date of Onset Reaction(s) Facility (19 sources) Simvastatin; Translations: [simvastatin] Drug Allergy Malaise (finding) [facility] (1 source) Unable to Assess Drug allergy (disorder) 3 [facility] Repository Medications Current Medications Medication Drug Class(es) Dates Sig (Normalized) Sig (Original) cephalexin 500 mg oral capsule (4 sources) Cephalosporin Antibacterial Start: 07-05-2023 End: 07-12-2023 take 1 capsule by mouth every twelve hours Keflex 500 mg Cap 500 mg = 1 cap(s), Oral, q12hr, X 7 day(s), # 14 cap(s), Refills(s) 0, Pharmacy: [facility]/pharmacy #[id number], 189, cm, 04/23/23 11:48:00 EST, Height/Length Dosing, 95.2, kg, 04/23/23 11:48:00 EST, Weight Dosing Start Date: 07/05/23 Stop Date: 07/12/23 Status: Ordered Start: 09-30-2022 End: 10-07-2022 take 1 capsule by mouth every twelve hours cephalexin 500 mg Cap 500 mg = 1 cap(s), Oral, q12hr, X 7 day(s), # 14 cap(s), Refills(s) 0, [id number], cm, 09/30/22 17:16:00 EDT, Height/Length Dosing, 98, kg, 09/30/22 17:16:00 EDT, Weight Dosing Start Date: 09/30/22 Stop Date: 10/07/22 Status: Ordered ciprofloxacin 500 mg oral tablet (6 sources) Quinolone Antimicrobial Start: 03-18-2023 End: 03-25-2023 Cipro 500 mg Tab 500 mg = 1 tab(s), Oral, q12hr, Start 3 days prior to procedure, X 7 day(s), # 14 tab(s), Refills(s) 0, [id number], cm, 01/15/23 10:11:00 EDT, Height/Length [...] cysto, # 2 tab(s), Refills(s) 0, Pharmacy: [facility]/pharmacy #[id number], 189, cm, 09/29/22 12:16:00 EDT, Height/Length Dosing, 98, kg, 09/29/22 12:16:00 EDT, Weight Dosing Start Date: 09/29/22 Status: Ordered doxycycline hyclate 100 mg oral capsule (2 sources) Tetracycline-class Drug Start: 01-18-2024 End: 03-14-2024 take 1 capsule by mouth twice daily doxycycline hyclate 100 mg Cap 100 mg = 1 cap(s), Oral, BID, may substitute hyclate for monohydrate based on availability, X 8 week(s), # 112 cap(s), Refills(s) 0, Pharmacy: [facility]/pharmacy #[id number], 188, cm, 01/18/24 15:44:00 EDT, Height/Length Dosing, 97.6, kg, 01/18/24 15:44:00 EDT, Weight Dosing Start Date: 01/18/24 Stop Date: 03/14/24 Status: Ordered 3 ml insulin, regular, human 100 unt/ml pen injector (16 sources) Insulin Start: 09-29-2022 Relion R FlexPen 100 units/mL injectable solution Refills(s) 0 Start Date: 09/29/22 Status: Ordered Repeat number: 1 levoFLOXacin 500 mg oral tablet (1 source) Quinolone Antimicrobial Start: 11-16-2022 End: 12-07-2022 take 1 tablet by mouth every twenty-four hours Levaquin 500 mg Tab 500 mg = 1 tab(s), Oral, q24hr, X 21 day(s), # 21 tab(s), Refills(s) 0, Pharmacy: [facility]/pharmacy #[id number], 189, cm, 11/16/22 11:08:00 EDT, Height/Length Dosing, 95, kg, 11/16/22 11:08:00 EDT, Weight Dosing Start Date: 11/16/22 Stop Date: 12/07/22 Status: Ordered 24 hr mirabegron 50 mg extended release oral tablet (4 sources) beta3-Adrenergic Agonist Start: 12-27-2023 take 1 tablet by mouth once daily mirabegron 50 mg oral tablet, extended release 50 mg = 1 tab(s), Oral, Daily, # 30 tab(s), Refills(s) 0, Pharmacy: [facility]/pharmacy #[id number], 188, cm, 12/27/23 11:12:00 EDT, Height/Length Dosing, 97.6, kg, 12/27/23 11:12:00 EDT, Weight Dosing Start Date: 12/27/23 Status: Ordered Quantity: 30.0 Unit: tab(s) Repeat number: 1 sulfamethoxazole 800 mg / trimethoprim 160 mg oral tablet (8 sources) Dihydrofolate Reductase Inhibitor Antibacterial, Sulfonamide Antimicrobial Start: 12-27-2023 sulfamethoxazole- trimethoprim 800 mg-160 mg Tab 1 tab(s), Oral, Daily, 30 tab(s), Refill(s) 0 Start Date: 12/27/23 Status: Ordered Quantity: 30.0 Unit: tab(s) Repeat number: 1 Start: 08-23-2023 End: 11-21-2023 Bactrim D.S. 800 mg-160 mg T ab 1 tab(s), Oral, Daily for 30 day(s), 30 tab(s), Refill(s) 2, Start taking after completion of 3 week antibiotic course., [facility]/pharmacy #[id number], 189, cm, 08/23/23 11:46:00 EDT, Height/Length Dosing, 97.8, kg, 08/23/23 11:46:00 EDT, Weight Dosing Start Date: 08/23/23 Stop Date: 11/21/23 Status: Ordered Start: 08-23-2023 End: 09-13-2023 Bactrim D.S. 800 mg-160 mg T ab 1 tab(s), Oral, BID for 21 day(s), 42 tab(s), Refill(s) 0, [facility]/pharmacy #[id number], 189, cm, 08/23/23 11:46:00 EDT, Height/Length Dosing, 97.8, kg, 08/23/23 11:46:00 EDT, Weight Dosing Start Date: 08/23/23 Stop Date: 09/13/23 Status: Ordered Start: 03-19-2023 End: 03-29-2023 Bactrim D.S. 800 mg-160 mg T ab 1 tab(s), Oral, BID for 10 day(s), 20 tab(s), Refill(s) 0, [id number], 189, cm, 01/15/23 10:11:00 EDT, Height/Length [...] Date Documented Date Episodic/Chronic Cancer of prostate (10 sources) Malignant tumor of prostate; Translations: [Malignant neoplasm of prostate] Onset: 08-23-2023 04-23-2023 Chronic Diabetes mellitus without complication (17 sources) Glycosuria; Translations: [Glycosuria] Onset: 09-29-2022 Episodic Fever of unknown origin (1 source) Fever, unspecified; Translations: [FEVER UNSPECIFIED] Onset: 03-08-2022 Episodic Genitourinary symptoms and ill-defined conditions (20 sources) Microscopic hematuria; Translations: [Other microscopic hematuria] Onset: 09-29-2022 Episodic Hyperplasia of prostate (20 sources) Benign prostatic hypertrophy with outflow obstruction; Translations: [Benign prostatic hyperplasia with lower urinary tract symptoms] Onset: 09-29-2022 Chronic Inflammatory conditions of male genital organs (6 sources) Chronic prostatitis; Translations: [Chronic prostatitis] Onset: 12-27-2023 Chronic Inflammatory conditions of male genital organs (11 sources) Prostatitis; Translations: [Inflammatory disease of prostate, unspecified] Onset: 11-16-2022 Episodic Other male genital disorders (7 sources) Atypical small acinar proliferation of prostate 04-23-2023 Episodic Other male genital disorders (3 sources) Dysplasia of prostate; Translations: [Atypical small acinar proliferation of prostate] Onset: 08-23-2023 Episodic Other screening for suspected conditions (not mental disorders or infectious disease) (20 sources) Raised prostate specific antigen; Translations: [Elevated prostate specific antigen [PSA]] Onset: 09-29-2022 Episodic Other skin disorders (4 sources) Rash and other nonspecific skin eruption; Translations: [RASH OTH NONSPECIFIC SKIN ERUPTION] Onset: 03-05-2022 Episodic Thyroid disorders (16 sources) Hypothyroidism 09-29-2022 Chronic Urinary tract infections (20 sources) Urinary tract infection, site not specified; Translations: [Urinary tract infectious disease] Onset: 06-27-2021 Episodic Results Test Name Value Interpretation Reference Range Facility Ambulatory Visit Summaryon 0 06-26-2024 Ambulatory Visit Summary Ambulatory Visit Summary HALINA RASHID :1950 Visit Date:06/26/2024 Ambulatory Visit Instructions Your Diagnosis Prostate cancer Atypical small acinar proliferation of prostate Urinary retention BPH with obstruction/lower urinary tract symptoms Chronic prostatitis Microhematuria Your Care Team Attending Physician - Liu GOLD MD Primary Care Physician - HUBER ROSAS DO This Is Your Medications List ciprofloxacin (Cipro 500 mg Tab) Contact prescribing physician if questions or concerns insulin regular (Relion R FlexPen 100 units/mL injectable solution) Procedures Performed Transrectal biopsy of prostate using ultrasound guidance (04/06/2023), Cystoscopy (10/13/2022), Urodynamics (10/13/2022), Cataract extraction and insertion of intraocular lens (08/09/2018), Cataract extraction and insertion of intraocular lens, Hernia, Insertion of coronary artery stent. Discharge Vitals Temperature (Temporal Artery) 37 ???C Heart Rate (Peripheral) 76 Respiratory Rate 16 Blood Pressure 139/85 Height 188 cm Height 74 in Weight 115 kg Weight 253.531 lb BMI 32.54 What to do next Scheduled Follow-Up Appointments Wednesday 10:45 AM EDT With: Liu GOLD MD Where: [facility] [address] [place] [address]- You Need to Schedule the Following Appointments Follow Up with Liu GOLD MD, URL When: Where: [facility] [address], [place] [address]- [phone] Medications What How Much When Why Instructions New ciprofloxacin (Cipro 500 mg Tab) 1 Tablets By Mouth 2 times a day Prostate cancer Duration: 10 Days start 6 days prior to procedure Pickup at [facility]/pharmacy #[id number] Unchanged insulin regular (Relion R FlexPen 100 units/ mL injectable solution) Contact prescribing physician if questions or concerns Pharmacy Information [facility]/pharmacy #[id number]: [address] [place], [place] [id number] [phone] Allergies Zocor (Malaise) Problems Ongoing - Any problem that you are currently receiving treatment for. 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 Please share your experience with us by completing your survey. We appreciate your feedback and thank you for choosing us for your care. Education Materials Transrectal Ultrasound-Guided Prostate Biopsy A transrectal ultrasound-guided prostate biopsy is a procedure to remove samples of prostate tissue for testing. The prostate is a walnut-sized gland that is located below the bladder and in front of the rectum. During this procedure, a small device (probe) is lubricated and put inside the rectum. The probe sends out sound waves that make a picture of the prostate and surrounding tissues (transrectal ultrasound). The images are used to help guide the process of removing the samples. The samples are taken to a lab to be checked for prostate cancer. This procedure is usually done to evaluate the prostate gland of men who have raised (elevated) levels of prostate-specific antigen (PSA), which can be a sign of prostate cancer or prostate enlargement related to aging (benign prostatic hyperplasia, or BPH). Tell a health care provider about: ??? Any allergies you have. ??? All medicines you are taking, including vitamins, herbs, eye drops, creams, and gcjj-rzi-nkcgiai medicines. ??? Any problems you or family members have had with anesthetic medicines. ??? Any bleeding problems you have. ??? Any surgeries you have had. ??? Any medical conditions you have. ??? Any prostate infections you have had. What are the risks? Generally, this is a safe procedure. However, problems may occur, including: ??? Prostate infection. ??? Bleeding from the rectum. ??? Blood in the urine. ??? Allergic reactions to medicines. ??? Damage to surrounding structures such as blood vessels, organs, or muscles. ??? Difficulty passing urine. ??? Nerve damage. This is usually temporary. What happens before the procedure? Medicines Ask your health care provider about: ??? Changing or stopping your regular medicines. This is especially important if you are taking diabetes medicines or blood thinners. ??? Taking medicines such as aspirin and ibuprofen. These medicines can thin your blood. Do not take these medicines unless your health care provider tells you to take them. ??? Taking fbdh-rwa-ugnfbqs medicines, vitamins, herbs, and supplements. General instructions ??? Follow instructions from your health care provi (more content not included)... [facility] Urology Office/Clinic Noteon 06-26-2024 Urology Office/Clinic Note Urology Office/Clinic Note Chief Complaint 6 month with PSA HPI Staff 6 mos w PSA. Previous dx: prostate ca (active surveillance), YASMANI, urinary retention, BPH w obstruction/LUTS, urinary urgency, chronic prostatitis, microhematuria. *Started on Myrbetriq ER 50mg qd at prior OV but never picked it up from the pharmacy due to cost. He was doing CIC too frequently previously. Pt is still doing CIC 6-8x a day. PSA 08/19/23 - 6.82 12/27/23 - 8.86 Denies any urinary complaints at this time. No visible blood at any time. No abdominal or flank pain. History of Present Illness Tests reviewed: reviewed [...] See HPI. Physical Exam Vitals & Measurements T: 37 ???C(Temporal Artery) HR: 76(Peripheral) RR: 16 BP: 139/85 HT: 188 cm HT: 74 in WT: 253.531 lb WT: 115 kg BMI: 32.54 General Appearance: alert, no distress, well nourished, well developed male. Assessment/Plan 1. Prostate cancer (C61: Malignant neoplasm of prostate) ACTIVE SURVEILLANCE. PSA: 10/03/16 - 2.45 10/11/17 - 2.89 08/06/20 - 3.73 01/13/21 - 5.42 09/29/22 - 8.6 (prostatitis) 12/09/22 - 5.65 (after abx tx) 08/19/23 - 6.82 12/27/23 - 8.86 06/23/24 - 6.9 MRI of prostate 03/03/23 - 7 x 7 mm lesion involving the posterior lateral aspect of the right peripheral zone. PI-RADS 4. S/p TRUS/bx 04/06/23 - [place] 6 (3+3) GG1. 8% of core involvement. PSA has decreased over the last 6 months. Advised pt he is due for a confirmatory biopsy to evaluate if treatment is indicated. Risks/benefits discussed. Pt is not interested in proceeding with this at this time, would like to think about it. Discussed he may be dismissed from the practice if he is noncompliant. Pt understands. -Will schedule TRUS of Prostate with Biopsy. The procedural risks, benefits, details, and treatment alternatives have been discussed with the patient. These include minimal to severe bleeding, infection, blood in the semen, inability to urinate, and severe infection requiring hospitalization and IV antibiotics, among others. Full informed consent has been obtained. Will order Local anesthesia. 2. 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 [1] 3. Urinary retention (R33.9: Retention of urine, unspecified) Pt had 18 Fr catheter placed at OV 09/29/22 and presented to [facility] the following day for seeing blood in his catheter bag. Pt was tx'd with Keflex 500mg as a positive ucx was present at that time. S/p Urodynamics 10/13/22 - unable to void, placed with 14F coude catheter. Pt is obstructed endoscopically. He is not interested in a turp. MRI of prostate 03/03/23 Urinary bladder appears trabeculated with distal hydroureter. Finding suggests bladder outlet obstruction. Rx'd Myrbetriq ER 50 mg qd at prior OV. However pt never took this d/t expense. Still experiencing frequent urination. CIC 6-8x/day (two of these are during the night typically). Voids very minimally on own. Does not CIC directly before bedtime as he tends to take naps (does not have consistent sleep schedule). Denies experiencing UUI. Discussed possibility of chronic catheter. Pt is not interested in this, prefers to continue to CIC. -Cont CIC, order for catheter supplies provided today 4. BPH with obstruction/lower urinary tract symptoms (N40.1: Benign prostatic hyperplasia with lower urinary tract symptoms) S/p cysto 10/13/22 - obstructed, median lobe, lateral lobe obstruction with large median lobe component. Urodynamics 10/13/22 - unable to void, placed with 14F coude catheter. Pt is obstructed endoscopically. MRI of prostate 03/03/23 - BPH changes with extruded PBH nodule causing massa effect upon the blase of the left seminal vesicle. Pt has never been on any BPH medications. Re-discussed results of urodynamics. Advised pt he is a candidate for a TURP. Risks/benefits discussed. Not interested at this time. 5. Chronic prostatitis (N41.1: Chronic prostatitis) Positive UCx: 07/29/22 - (Dr Rosas's office) LARGE Leuk NEG Nitrate LARGE blood, Tx'd with Levaquin 500mg 09/29/22 and 09/30/22 - E. faecalis, tx'd with Keflex 500mg then switched to Cipro 07/05/23 - >100k Serratia marcescens, tx'd w/ Bactrim DS bi (more content not included)... [facility] Comment on above: Result Comment: Elec tronically Signed By: Liu GOLD MD\.br\Date and Time Signed: 06/26/24 12:01 EDT\.br\Electronically Co-Signed By: Dejah Larson.br\Date and Time Co-Signed: 06/26/24 11:57 EDT Ambulatory Visit Summaryon 0 06-23-2024 Ambulatory Visit Summary Ambulatory Visit Summary HALINA RASHID :1950 Visit Date:06/23/2024 Ambulatory Visit Instructions Your Care Team Attending Physician - Liu GOLD MD Primary Care Physician - HUBER ROSAS DO This Is Your Medications List insulin regular (Relion R FlexPen 100 units/mL injectable solution) mirabegron (mirabegron 50 mg oral tablet, extended release) sulfamethoxazole-trim ethoprim (sulfamethoxazole-tri methoprim 800 mg-160 mg Tab) Procedures Performed Transrectal biopsy of prostate using ultrasound guidance (04/06/2023), Cystoscopy (10/13/2022), Urodynamics (10/13/2022), Cataract extraction and insertion of intraocular lens (08/09/2018), Cataract extraction and insertion of intraocular lens, Hernia, Insertion of coronary artery stent. What to do next Scheduled Follow-Up Appointments Wednesday 10:45 AM EDT With: RUSSELL WOOTEN, Liu Baker Where: [facility] [place] [address]- Medications What How Much When Instructions Unchanged insulin regular (Relion R FlexPen 100 units/ mL injectable solution) Unchanged mirabegron (mirabegron 50 mg oral tablet, extended release) 1 Tablets By Mouth Every day Unchanged sulfamethoxazole-trim ethoprim (sulfamethoxazole-tri methoprim 800 mg-160 mg Tab) 1 Tablets By Mouth Every day Allergies Zocor (Malaise) Problems Ongoing - Any problem that you are currently receiving treatment for. 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 Please share your experience with us by completing your survey. We appreciate your feedback and thank you for choosing us for your care. [facility] CHEMISTRYOrdered By: SYSTEM SYSTEM on 06-23-2024 Prostate specific Ag [Mass/Vol] 6.9 ng/mL High 0.1 - 3.5 ng/mL Rem[facility] Chem Comment on above: Interpretive Data: T he concentration of PSA determined by different manufacturers can vary due to differences in assay methods and reagent specificity. Values obtained from different assay methods cannot be used interchangeably. The methodology used for this result was chemiluminescence using [employer]'s Access Hybritech PSA reagent. PSA Totalon 06-23-2024 Prostate specific Ag [Mass/Vol] 6.9 ng/mL High 0.1-3.5 [facility] Comment on above: Result Comment: The concentration of PSA determined by different manufacturers can vary due to differences in assay methods and reagent specificity. Values obtained from different assay methods cannot be used interchangeably. The methodology used for this result was chemiluminescence using [employer]'s Access Hybritech PSA reagent. Performed By: #### [id number] #### [facility] [address] [place] [address] C Urineon 01-20-2024 Bacteria identified Cx Nom (U) Microbiology PROCEDURE: Urine Culture [R1] SOURCE: U Random BODY SITE: COLLECTED DATE/TIME: 01/18/2024 15:58 EDT RECEIVED DATE/TIME: 01/18/2024 17:46 EDT START DATE/TIME: 01/18/2024 17:46 EDT FREE TEXT SOURCE: Laura LONDONO, TECHNOLOGY PROGRAM MANAGER-C, Laura LONDONO, TECHNOLOGY PROGRAM MANAGER-C, Radha X Radha X FINAL REPORTS Final Report [] Verified Date/Time: 01/20/2024 08:56 EDT >100,000 cfu/ml Enterobacter hormaechei SUSCEPTIBILITY RESULTS LEGEND: S=Susceptible, N/R=Not Reported, Blank=Data not available, or drug not advisable or tested, I=Intermediate, ESBL=Extended spectrum beta-lactamase, R=Resistant, TFG=Thymidine-depende nt strain, GUS=Beta-lactamase positive, LIMA=mcg/m;(mg/L), S*=Predicted susceptible interp, R*=Predicted resistant interp Enthor Antibiotic LIMA Dilutn LIMA Interp Ampicillin >16 R Ampicillin/ >16/8 R Sulbactam Aztreonam <=4 S Cefazolin >16 R Cefepime <=2 S Ceftazidime <=1 S Ceftriaxone <=1 S Cefuroxime 16 I Ciprofloxacin <=0.25 S Ertapenem <=0.5 S Gentamicin <=2 S Levofloxacin <=0.5 S Meropenem <=1 S Nitrofurantoin <=32 S Piperacillin/ <=8 S Tazobactam Tetracycline <=4 S Tobramycin <=2 S Trimethoprim/ <=2/38 S Sulfa Performing Locations R1: This test was performed at: [facility], [address] [place] [address], [address] , , [facility] Comment on above: Performed By: #### [id number] #### [facility] [address] [place] [address] Ambulatory Visit Summaryon 1 Ambulatory Visit Summary Ambulatory Visit Summary HALINA RASHID :1950 Visit Date:01/18/2024 Ambulatory Visit Instructions Your Diagnosis Chronic prostatitis Prostate cancer Atypical small acinar proliferation of prostate Urinary retention Your Care Team Attending Physician - ERNESTO Sanchez APRN, Radha Pike Primary Care Physician - HUBER ROSAS DO This Is Your Medications List doxycycline (doxycycline hyclate 100 mg Cap) insulin regular (Relion R FlexPen 100 units/mL injectable solution) mirabegron (mirabegron 50 mg oral tablet, extended release) sulfamethoxazole-trim ethoprim (sulfamethoxazole-tri methoprim 800 mg-160 mg Tab) Procedures Performed Transrectal biopsy of prostate using ultrasound guidance (04/06/2023), Cystoscopy (10/13/2022), Urodynamics (10/13/2022), Cataract extraction and insertion of intraocular lens (08/09/2018), Cataract extraction and insertion of intraocular lens, Hernia, Insertion of coronary artery stent. Discharge Vitals Heart Rate (Peripheral) 88 Blood Pressure 150/90 Height 188 cm Height 74 in Weight 97.6 kg Weight 214.72 lb BMI 27.61 What to do next Scheduled Follow-Up Appointments Wednesday 10:45 AM EDT With: RUSSELL WOOTEN, Liu Baker Where: [facility] [address] [place] [address]- Medications What How Much When Why Instructions New doxycycline (doxycycline hyclate 100 mg Cap) 1 Capsules By Mouth 2 times a day Chronic prostatitis Duration: 8 Weeks may substitute hyclate for monohydrate based on availability Pickup at [facility]/pharmacy #[id number] Unchanged insulin regular (Relion R FlexPen 100 units/ mL injectable solution) Unchanged mirabegron (mirabegron 50 mg oral tablet, extended release) 1 Tablets By Mouth Every day Unchanged sulfamethoxazole-trim ethoprim (sulfamethoxazole-tri methoprim 800 mg-160 mg Tab) 1 Tablets By Mouth Every day Pharmacy Information [facility]/pharmacy #[id number]: [address] [place], [place] [phone] Allergies Zocor (Malaise) Problems Ongoing - Any problem that you are currently receiving treatment for. 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 Please share your experience with us by completing your survey. We appreciate your feedback and thank you for choosing us for your care. [facility] Provider Letteron 01-07-2024 Provider Letter Provider Letter January 07, 2024 [address] [place] [id number] : 1950 Dear Halina E Gay, We have been trying to reach you with no success. It is important that you return our call regarding your results upon receiving this letter. Also, at the time of your call, please provide us with your current information. Thank you for your prompt attention to this matter. Sincerely, Liu Gold M.D. [address] [id number] [phone] [facility] Ambulatory Visit Summaryon 1 Ambulatory Visit Summary Ambulatory Visit Summary GAY HALINA Deni :1950 Visit Date:12/27/2023 Ambulatory Visit Instructions Your Diagnosis Prostate cancer Atypical small acinar proliferation of prostate Urinary retention BPH with obstruction/lower urinary tract symptoms Urinary urgency Chronic prostatitis Microhematuria Your Care Team Attending Physician - Liu GOLD MD Primary Care Physician - HUBER ROSAS DO This Is Your Medications List mirabegron (mirabegron 50 mg oral tablet, extended release) Contact prescribing physician if questions or concerns insulin regular (Relion R FlexPen 100 units/mL injectable solution) sulfamethoxazole-trim ethoprim (sulfamethoxazole-tri methoprim 800 mg-160 mg Tab) Procedures Performed Transrectal biopsy of prostate using ultrasound guidance (04/06/2023), Cystoscopy (10/13/2022), Urodynamics (10/13/2022), Cataract extraction and insertion of intraocular lens (08/09/2018), Cataract extraction and insertion of intraocular lens, Hernia, Insertion of coronary artery stent. Discharge Vitals Heart Rate (Peripheral) 90 Blood Pressure 160/90 Height 188 cm Height 74 in Weight 97.6 kg Weight 214.72 lb BMI 27.61 What to do next Scheduled Follow-Up Appointments Wednesday 10:45 AM EDT With: Liu GOLD MD Where: [facility] [address] [place] [address]- You Need to Schedule the Following Appointments Follow Up with Liu GOLD MD, URL When: Where: [facility] [address], [place] [address]- [phone] Medications What How Much When Instructions New mirabegron (mirabegron 50 mg oral tablet, extended release) 1 Tablets By Mouth Every day Pickup at [facility]/pharmacy #[id number] Unchanged insulin regular (Relion R FlexPen 100 units/ mL injectable solution) Contact prescribing physician if questions or concerns Unchanged sulfamethoxazole-trim ethoprim (sulfamethoxazole-tri methoprim 800 mg-160 mg Tab) 1 Tablets By Mouth Every day Contact prescribing physician if questions or concerns Pharmacy Information [facility]/pharmacy #[id number]: [address] [place], [place] [phone] Allergies Zocor (Malaise) Problems Ongoing - Any problem that you are currently receiving treatment for. 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 Please share your experience with us by completing your survey. We appreciate your feedback and thank you for choosing us for your care. Education Materials Acute Urinary Retention, Male Acute urinary retention [...] causes? This condition may be caused by: ? Obstruction or narrowing of the tube that drains the bladder (urethra). This may be caused by surgery, problems with nearby organs, or injury to the bladder or urethra. ? Problems with the nerves in the bladder. ? Tumors in the area of the pelvis, bladder, or urethra. ? Certain medicines. ? Bladder or urinary tract infection. ? Constipation. What increases the risk? This condition is more likely to develop in older men. As men age, their prostate may become larger and may start to press or squeeze on the bladder or the urethra. Other chronic health conditions can increase the risk of acute urinary retention. These include: ? Diseases such as multiple sclerosis. ? Spinal cord injuries. ? Diabetes. ? Degenerative cognitive conditions, such as delirium or dementia. ? Psychological conditions. A man may hold his urine due to trauma or because he does not want to use the bathroom. What are the signs or symptoms? Symptoms of this condition include: ? Trouble urinating. ? Pain in the lower abdomen. How is this diagnosed? This condition is diagnosed based on a physical exam and your medical history. You may also have other tests, including: ? An ultrasound of the bladder or kidneys or both. ? Blood tests. ? A urine analysis. ? Additional tests may be needed, such as a CT scan, MRI, and kidney or bladder function tests. How is this treated? Treatment for this condition may include: ? Medicines. ? Placing a thin, sterile tube (catheter) into the bladder to drain urine out of the body. This is called an indwelling urinary catheter. After it is inserted, (more content not included)... [facility] Urology Office/Clinic Noteon 12-27-2023 Urology Office/Clinic Note Urology Office/Clinic Note Chief Complaint 4 mos w/ PSA HPI Staff 4 month f//u with PSA. ACTIVE SURVEILLANCE. Dx: prostate cancer, atypical small acinar proliferation of prostate, urinary retention, prostatitis, BPH with obstruction/LUTS and microhematuria. PSA: 10/03/16 - 2.45 10/11/17 - 2.89 08/06/20 - 3.73 01/13/21 - 5.42 09/29/22 - 8.6 (prostatitis) 12/09/22 - 5.65 (after abx tx) 08/19/23 - 6.82 pt did get PSA drawn this morning. He states he had the dates of his appointment mixed up and thought it was tomorrow. Dysuria: no Incomplete bladder emptying: no Hematuria: no Frequency: q3-4 Urgency:no Nocturia: 2x Stream: normal Leaking: no Post void dripping: no Wearing pads/ Depends: no Urge incontinence: no Stress incontinence: no Incontinence without Sensory Awareness: no Abdominal pain: no Flank pain: no Sexual complaints: History of Present Illness Tests reviewed: reviewed UA I have reviewed the previous health record [...] HPI. Physical Exam Vitals & Measurements HR: 90(Peripheral) BP: 160/90 HT: 74 in HT: 188 cm WT: 97.6 kg WT: 214.72 lb BMI: 27.61 General Appearance: alert, no distress, well nourished, [...] Isabel 6 (3+3) GG1. 8% of core involvement.[1] Pt had PSA level drawn this morning at [facility], results not final yet. -Will call pt with PSA results -F/u in 6 mos w/ PSA 2. 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 3. Urinary retention (R33.9: Retention of urine, unspecified) Pt had 18 Fr catheter placed at [facility] 09/29/22 and presented to [facility] the following day for seeing blood in his catheter bag. Pt was tx'd with Keflex 500mg as a positive ucx was present at that time. S/p Urodynamics 10/13/22 - unable to void, placed with 14F coude catheter. Pt is obstructed endoscopically. MRI of prostate 03/03/23 Urinary bladder appears trabeculated with distal hydroureter. Finding suggests bladder outlet obstruction. [2] CIC 6-7x/day. Reports up to 8x in a 24 hr period. Denies discomfort with CIC. States he catheterizes when he has urge to void. Has had an episode of UUI. Voids minimally on own, just enough to relieve pressure. Discussed he is doing CIC too often which contributes to infections. Discussed starting a bladder medication to help control sxs. The goal would be to decrease cic to qid. Risks/benefits/possib le SEs discussed. States he has tried Myrbetriq before. Recommended starting this. -Cont CIC, order for catheter supplies provided today -Start Myrbetriq ER 50 mg qd. 1 month supply sent to [facility]. Pt would like refills to be sent to [facility] in future. 4. 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 MRI of prostate 03/03/23 BPH changes with extruded PBH nodule causing massa effect upon the blase of the left seminal vesicle. Pt has never been on any BPH medications. [3] 5. Urinary urgency (R39.15: Urgency of urination) See #3. 6. Chronic prostatitis (N41.1: Chronic prostatitis) Positive UCx: 07/29/22 - (Dr Rosas's office) LARGE Leuk NEG Nitrate LARGE blood, Tx'd with Levaquin 500mg 09/29/22 and 09/30/22 - E. faecalis, tx'd with Keflex 500mg then switched to Cipro 07/05/23 - >100k Serratia marcescens, tx'd w/ Bactrim DS bid x7 days. States after finishing abx course his urine was clear for ~2 days but became cloudy again. Was rx'd Bactrim DS bid x3 weeks and then qd x3 mos at prior [facility] 08/23/23. UA today negative for infection. 7. Microhematuria (R31.29: Other microscopic hematuria) S/p Cysto 10/13/22 - Erythematous mucosa diffusely indicative of cystitis, no bt. [4] UA today shows trace-intact blood. Denies gross hematuria. (more content not included)... [facility] Comment on above: Result Comment: Elec tronically Signed By: RUSSELL WOOTEN, Liu Baker\.shaina\Date and Time Signed: 12/27/23 11:52 EDT\.br\Electronically Co-Signed By: Dejah Larson\.br\Date and Time Co-Signed: 12/27/23 11:50 EDT Ambulatory Visit Summaryon 0 08-23-2023 Ambulatory Visit Summary HALINA RASHID :1950 Visit Date:08/23/2023 Ambulatory Visit Instructions Your Diagnosis Prostate cancer Atypical small acinar proliferation of prostate Urinary retention Prostatitis BPH with obstruction/lower urinary tract symptoms Microhematuria Your Care Team Attending Physician - Liu GOLD MD Primary Care Physician - HUBER ROSAS DO This Is Your Medications List sulfamethoxazole-trim ethoprim (Bactrim D.S. 800 mg-160 mg Tab) sulfamethoxazole-trim ethoprim (Bactrim D.S. 800 mg-160 mg Tab) Contact [...] Liu GOLD MD Where: [facility] Patient Educationon 08-23-19 24 Patient Education Infectious Disease Prostatitis Prostatitis is [...] these instructions at home: Medicines ? Take [id number]-[id number] and prescription medicines only as told by [...] Where to find more information ? National [place] of Diabetes and Digestive and Kidney Diseases: (more content not included)... [facility] Urology Office/Clinic Noteon 08-23-2023 Urology Office/Clinic Note [...] placed at [facility] 09/29/22 and presented to [facility] the following day for seeing blood [...] with lower urinary tract symptoms) S/p cysto 7/25/23 obstructed, median lobe, lateral lobe obstruction with large median lobe component. MRI of prostate 03/03/23 BPH changes with extruded PBH nodule causing massa effect upon the blase of the left seminal vesicle. Pt has never been on any BPH medications. 6. Microhematuria (R31.29: Other microscopic hematuria) S/p Cysto 10/13/22 - Erythematous mucosa diffusely indicative of cystitis, no bt. Follow-up With When Contact Information RUSSELL WOOTEN, Liu Baker, URL [facility] [address], [place] [phone] Additional Instructions: 4 mos w/ 2 PSAs Patient Education Prostatitis I, Dejah Larson, personally scribed for Dr. Gold on 08/23/2023 12:28:50. . Documentation recorded by the scribe, Dejah Larson, accurately reflects the services(s) I performed and decisions made by me. Authenticated by Dr. Gold on 08/23/2023 12:34:29. Problem List/Past Medical H (more content not included)... [facility] Comment on above: Result Comment: Elec tronically Signed By: Liu GOLD MD\.br\Date and Time Signed: 08/23/23 12:34 EDT\.br\Electronically Co-Signed By: Dejah Larson\.br\Date and Time Co-Signed: 08/23/23 12:29 EDT Lab Reportson 08-22-2023 Lab Reports [id number]. [id number] [facility] C Urineon 07-07-2023 Bacteria identified Cx Nom [...] or tested, I=Intermediate, ESBL=Extended spectrum beta-lactamase, R=Resistant, TFG=Thymidine-depende nt strain, GUS=Beta-lactamase positive, LIMA=mcg/m;(mg/L), S*=Predicted susceptible interp, R*=Predicted resistant interp [facility] Antibiotic LIMA Dilutn LIMA Interp Amikacin <=16 [...] Locations R1: This test was performed at: [facility], [address] [place] [address], [phone] , [place], [facility] Comment on above: Performed By: #### 2 [id number] ####[facility] [address] [place] [address] MR prostate wo/w conon 03-04 MR prostate wo/w con [facility] Main [address] [address] MRI Report Signed Patient: Halnia Rashid MR#: [id number] : 1950 Acct:[id number] Age/Sex: 72 / M ADM Date: 03/03/23 Loc: MR Room: Type: [facility] Attending Dr: Liu Gold MD Copies to: [...] image 12 and series 600 image 12. Central/Transitional Zone: BPH changes. Extruded BPH nodule is [...] obstruction. Impression dictated by: Ector Kam Jr., Khoa03/04/2023 9:23 AM Dictation Location: [facility]-12 Transcribed By: [facility] 03/04/23922 Dictated By: Ector Kam Jr DO 03/04/23913 Signed By: 03/04/23922 [facility] ISTAT XRay CREon 03-03-2023 Creatinine [Mass/Vol] 1.7 mg/dL High 0.6-1.3 [facility] Comment on above: Result Comment: ER/E SD physician is notified/shown all ISTAT results. Critical values may be confirmed by laboratory testing if deemed necessary by ER attending doctor. Performed By: #### I SCRE #### [facility] [address] [place] [address] ISTAT GFR 42.303 [facility] Comment on above: Result Comment: PERF ORMED BY: [address] [place] [address] PATHOLOGIST CONTRACT TECHNICIAN NORA ADAM M.D. Performed By: #### I SCRE #### [facility] [address] [place] [address] CHEMISTRYOrdered By: SYSTEM SYSTEM on 09-30-2022 Anion gap [Moles/Vol] 16 mmol/L Normal 6 - 16 mEq/L [facility] Remisol Calcium [Mass/Vol] 9.5 mg/dL Normal 8.9 - 11. 1 mg/dL [facility] Remisol Chloride [Moles/Vol] 97 mmol/L Low 101 - 1 11 mmol/L [facility] CO2 [Moles/Vol] 25 mmol/L Normal 21 - 31 mmol/L [facility] Creatinine [Mass/Vol] 2.1 mg/dL High 0.5 - 1.3 mg/dL [facility] Remisol GFR/1.73 sq M.predicted among non-blacks MDRD (S/P/Bld) [Vol rate/Area] 33 mL/min/1.73 m2 Low >=59mL/min/1 .73 m2 [facility] Chem S Glucose [Mass/Vol] 367 mg/dL High 55 - 199 mg/dL [facility] Remisol Potassium [Moles/Vol] 4.1 mmol/L Normal 3.5 - 5.3 mmol/L [facility]isol Sodium [Moles/Vol] 134 mmol/L Low 135 - 145 mmol/L [facility]isol Urea nitrogen [Mass/Vol] 29 mg/dL High 5 - 21 mg/dL [facility] Remisol Urea nitrogen/Creatinine [Mass ratio] 14 mg/mg Normal 10 - 20 [facility] HEMATOLOGYOrdered By: SYSTEM SYSTEM on 09-30-2022 Basophils/100 WBC (Bld) 0.9 % Normal 0.0 - 2.0 % [facility] HemeAutoSS Basophils/Leukocytes Auto (Bld) [Pure # fraction] 0.1 E9/L Normal 0.0 - 0.2 E9/L [facility] HemeAutoSS Eosinophils/100 WBC (Bld) 0.9 % Normal 0.0 - 8.0 % [facility] HemeAutoSS Eosinophils/Leukocyte s Auto (Bld) [Pure # fraction] 0.1 E9/L Normal 0.0 - 0.5 E9/L [facility] HemeAutoSS Lymphocytes/100 WBC (Bld) 13.2 % Low 14.0 - 50.0 % [facility] HemeAutoSS Lymphocytes/Leukocyte s Auto (Bld) [Pure # fraction] 1.4 E9/L Normal 1.0 - 4.0 E9/L [facility] HemeAutoSS Monocytes/100 WBC (Bld) 9.4 % Normal 4.0 - 14.0 % [facility] HemeAutoSS Monocytes/Leukocytes Auto (Bld) [Pure # fraction] 1.0 E9/L Normal 0.2 - 1.0 E9/L [facility] HemeAutoSS Neutrophils/100 WBC (Bld) 75.6 % High 36.0 - 75.0 % [facility] HemeAutoSS Neutrophils/Leukocyte s Auto (Bld) [Pure # fraction] 7.9 E9/L [...] 5.6 E12/L Normal 4.3 - 5.9 E12/L [facility] HemeAutoSS WBC corrected for nucl RBC Auto [...] [#/Area] 3-4 /HPF Normal 0-2/HPF [facility] UA Aut o SS Glucose Test strip (U) [Mass/Vol] 3+ *ABN* (09/30/22 6:12 PM) Invalid Interpretation Code Negative [facility] UA Auto SS Hemoglobin Ql (U) 3+ *ABN* (09/30/22 6:12 PM) Invalid Interpretation Code Negative [facility] UA Auto SS Ketones (U) [Mass/Vol] 1+ *ABN* (09/30/22 6:12 PM) Invalid Interpretation Code Negative [facility] UA Auto SS Brilliant.plasma/Lithiu m.RBC (Bld) [Mass ratio] >75 /HPF Invalid Interpretation Code 0-3/HPF [facility] UA Auto SS Nitrite Ql (U) Positive *ABN* (09/30/22 6:12 PM) Invalid Interpretation Code Negative [facility] UA Auto SS pH (U) 7.0 *NA* (09/30/22 6:12 PM) Invalid Interpretation Code 5.0 - 9.0 [facility] UA Auto SS Protein (U) [Mass/Vol] 3+ *ABN* (09/30/22 6:12 PM) Invalid Interpretation Code Negative [facility] UA Auto SS Specific gravity (U) [Rel density] 1.015 *NA* (09/30/22 6:12 PM) Invalid Interpretation Code 1.005 - 1.030 [facility] UA Auto SS UA Spec Desc Clean Catch (09/30/22 6:12 PM) Normal [facility] UA Auto SS Urobilinogen Qn (U) [id number] {Rowan'U}/dL Invalid Interpretation Code 0.0 - 1.0 EU/dL FT UA Auto SS WBC Auto Ql (U) 2+ *ABN* (09/30/22 6:12 PM) Invalid Interpretation Code Negative [facility] UA Auto SS WBC LM.HPF (Urine sed) [#/Area] 16-25 /HPF Invalid Interpretation Code 0-5/HPF [facility] UA Auto SS CHEMISTRYOrdered By: SYSTEM SYSTEM on 09-29-2022 Albumin [Mass/Vol] 3.8 g/dL Normal 3.3 - 5.0 gm/dL [facility] Remisol Anion gap [Moles/Vol] 14 mmol/L Normal 6 - 16 mEq/L [facility] Remisol Calcium [Mass/Vol] 9.7 mg/dL Normal 8.9 - 11. 1 mg/dL [facility] Remisol Chloride [Moles/Vol] 99 mmol/L Low 101 - 1 11 mmol/L [facility] Remisol CO2 [Moles/Vol] 27 mmol/L Normal 21 - 31 mmol/L [facility] Remisol Creatinine [Mass/Vol] 1.9 mg/dL High 0.5 - 1.3 mg/dL [facility] Remisol GFR/1.73 sq M.predicted among non-blacks MDRD (S/P/Bld) [Vol rate/Area] 37 mL/min/1.73 m2 Low >=59mL/min/1 .73 m2 [facility] Chem S Glucose [Mass/Vol] 175 mg/dL Normal 55 - 199 mg/dL [facility] Remisol Phosphate [Mass/Vol] 3.4 mg/dL Normal 1.9 - 4 .6 mg/dL [facility] Remisol Potassium [Moles/Vol] 4.3 mmol/L Normal 3.5 - 5.3 mmol/L [facility] Remisol Prostate specific Ag [Mass/Vol] 8.6 ng/mL High 0.1 - 3.5 ng/mL [facility] Remisol Sodium [Moles/Vol] 136 mmol/L Normal 135 - 145 mmol/L [facility] Remisol Urea nitrogen [Mass/Vol] 32 mg/dL High 5 - 21 mg/dL [facility] Remisol Urea nitrogen/Creatinine [Mass ratio] 17 mg/mg Normal 10 - 20 [facility]isol LYME DISEASE AB EIA W REFLEX on 03-06-2022 Lyme Total Antibody,EIA Negative Normal Negative [facility] Comment on above: Result Comment: Lyme antibodies [...] recommended. Performed By: #### L YMA #### [facility] [address] [place] [address] Monique Bird T. PALLIDIUM AB (FTA-AB)on 05-07-2021 T pallidum Ab (FTA-Ab) Non-Reactive Normal Non Reactive [facility] Comment on above: Performed By: #### T REPP #### [facility] [address] [address] [address] Monique Bird CBC AUTO DIFFon 03-05-2022 BASO # 0.1 103/ul Normal 0.0-0.1 [facility] Comment on above: Performed By: #### C BC #### [facility] [address] [address] [address] Monique Bird Basophils/100 WBC (Bld) 0.7 % Normal 0.2-2.0 [facility] Comment on above: Performed By: #### C BC #### [facility] [address] [address] [address] Monique Bird EO # 0.1 103/ul Normal 0.0-0.7 [facility] Comment on above: Performed By: #### C BC #### [facility] [address] [place] [address] Dr. Monique Bird Eosinophils/100 WBC (Bld) 1.0 % Normal 0.9-7.0 [facility] Comment on above: Performed By: #### C BC #### [facility] [address] [place] [address] Dr. Monique Bird Erythrocyte distribution width (RBC) [Ratio] 12.5 % Normal 11.0-15.0 [facility] Comment on above: Performed By: #### C BC #### [facility] [address] [place] [address] Dr. Monique Bird Hematocrit (Bld) [Volume fraction] 36.4 % Critically low 42.0-54.0 [facility] Comment on above: Performed By: #### C BC #### [facility] [address] [place] [address] Dr. Monique Bird Hemoglobin (Bld) [Mass/Vol] 12.0 g/dL Critically low 14.0-18.0 [facility] Comment on above: Performed By: #### C BC #### [facility] [address] [place] [address] Dr. Monique Bird IG # 0.07 10e3/ul Critically high 0.00-0.03 [facility] Comment on above: Performed By: #### C BC #### [facility] [address] [address] [address] Monique Bird IG % 0.6 % Critically high 0.0-0.5 [facility] Comment on above: Performed By: #### C BC #### [facility] [address] [address] [address] Monique Bird LYMPH # 0.8 103/ul Critically low 1.2-3.8 [facility] Comment on above: Performed By: #### C BC #### [facility] [address] [place] [address] Dr. Monique Bird Lymphocytes/100 WBC (Bld) 6.3 % Critically low 20.5-60.0 [facility] Comment on above: Performed By: #### C BC #### [facility] [address] [place] [address] Dr. Monique Bird MANUAL DIFF REQ NO Normal [facility] Comment on above: Performed By: #### C BC #### [facility] [address] [place] [address] Dr. Monique Bird MCH (RBC) [Entitic mass] 27.0 pg Normal 25.9-34.0 [facility] Comment on above: Performed By: #### C BC #### [facility] [address] [place] [address] Dr. Monique Bird MCHC (RBC) [Mass/Vol] 33.0 g/dL Normal 29.9-35.2 [facility] Comment on above: Performed By: #### C BC #### [facility] [address] [place] [address] Dr. Monique Bird MCV (RBC) [Entitic vol] 82.0 fL Normal 80.0-94.0 [facility] Comment on above: Performed By: #### C BC #### [facility] [address] [place] [address] Dr. Monique Bird MONO # 1.0 103/ul Critically high 0.3-0.8 [facility] Comment on above: Performed By: #### C BC #### [facility] [id number] Monique Bird Monocytes/100 WBC (Bld) 8.1 % Normal 1.7-12.0 [facility] Comment on above: Performed By: #### C BC #### [facility] [address] [address] [address] Monique Bird NEUT # 10.1 103/ul Critically high 1.4-6.5 [facility] Comment on above: Performed By: #### C BC #### [facility] [address] [address] [address] oMnique Bird Neutrophils/100 WBC (Bld) 83.3 % Critically high 43.0-75.0 [facility] Comment on above: Performed By: #### C BC #### [facility] [address] [place] [address] Dr. Moniqeu Bird Platelet mean volume (Bld) [Entitic vol] 9.7 fL Normal 9.5-13.5 [facility] Comment on above: Performed By: #### C BC #### [facility] [address] [address] [address] Monique Bird PLT 462 103/ul Critically high 150-450 [facility] Comment on above: Performed By: #### C BC #### [facility] [address] [place] [address] Dr. Monique Bird RBC 4.44 106/ul Critically low 4.70-6.10 [facility] Comment on above: Performed By: #### C BC #### [facility] [address] [address] [address] Monique iBrd WBC 12.1 103/ul Critically high 4.0-11.0 [facility] [place] Comment on above: Performed By: #### C BC #### [facility] [address] [address] [address] Moniuqe Bird PROF 14(COMP METB)on 03-05-2 022 Albumin [Mass/Vol] 2.6 g/dL Critically low 3.4-5.0 [facility] Comment on above: Performed By: #### C MP #### [facility] [address] [address] [address] Monique Bird Albumin/Globulin [Mass ratio] 0.5 {ratio} Normal [facility] Comment on above: Performed By: #### C MP #### [facility] [address] [address] [address] Monique Bird ALP [Catalytic activity/Vol] 114 U/L Normal 46-116 [facility] Comment on above: Performed By: #### C MP #### [facility] [address] [place] [address] Dr. Monique Bird ALT [Catalytic activity/Vol] 25 U/L Normal 16-63 [facility] Comment on above: Performed By: #### C MP #### [facility] [address] [place] [address] Dr. Monique Bird Anion gap [Moles/Vol] 13.6 mmol/L Normal [facility] Comment on above: Performed By: #### C MP #### [facility] [address] [place] [address] Dr. Monique Bird AST [Catalytic activity/Vol] 21 U/L Normal 15-37 [facility] Comment on above: Performed By: #### C MP #### [facility] [address] [place] [address] Dr. Monique Bird Bilirubin [Mass/Vol] 0.5 mg/dL Normal 0.2-1.0 [facility] Comment on above: Performed By: #### C MP #### [facility] [address] [place] [address] Dr. Monique Bird Calcium [Mass/Vol] 9.1 mg/dL Normal 8.5-10.1 [facility] Comment on above: Performed By: #### C MP #### [facility] [address] [place] [address] Dr. Monique Bird Chloride [Moles/Vol] 90 mmol/L Critically low 98-107 [facility] Comment on above: Performed By: #### C MP #### [facility] [address] [place] [address] Dr. Monique Bird CO2 [Moles/Vol] 27.6 mmol/L Normal 21.0-32.0 [facility] [place] Comment on above: Performed By: #### C MP #### [facility] [address] [address] [address] Monique Bird Creatinine [Mass/Vol] 1.98 mg/dL Critically high 0.70-1.30 [facility] Comment on above: Performed By: #### C MP #### [facility] [address] [address] [address] Monique Bird EGFR-AF [place] 41 mL/min/1.73m2 Critically low >=60 [facility] Comment on above: Performed By: #### C MP #### [facility] [address] [address] [address] Monique Bird EGFR-NON AF [place] 33 mL/min/1.73m2 Critically low >=60 [facility] Comment on above: Performed By: #### C MP #### [facility] [address] [address] [address] Monique Bird Globulin (S) [Mass/Vol] 5.3 g/dL Normal [facility] Comment on above: Performed By: #### C MP #### [facility] [address] [address] [address] Monique Bird Glucose [Mass/Vol] 504 mg/dL Critically high 74-106 [facility] Comment on above: Performed By: #### C MP #### [facility] [address] [address] [address] Monique Bird Potassium [Moles/Vol] 5.2 mmol/L Critically high 3.5-5.1 [facility] Comment on above: Performed By: #### C MP #### [facility] [address] [address] [address] Monique Bird Protein [Mass/Vol] 7.9 g/dL Normal 6.4-8.2 [facility] Comment on above: Performed By: #### C MP #### [facility] [address] [address] [address] Monique Bird Sodium [Moles/Vol] 125 mmol/L Critically low 136-145 Th e [facility] Comment on above: Performed By: #### C MP #### [facility] [address] [place] [address] Dr. Monique Bird Urea nitrogen [Mass/Vol] 39.0 mg/dL Critically high 7.0-18.0 [facility] Comment on above: Performed By: #### C MP #### [facility] [address] [place] [address] Dr. Monique Bird Urea nitrogen/Creatinine [Mass ratio] 19.7 mg/mg Normal [facility] Comment on above: Performed By: #### C MP #### [facility] [address] [place] [address] Dr. Monique Bird CULTURE URINEon 06-27-2021 CULTURE URINE Culture Observations : No growth Normal [facility] Comment on above: Performed By: #### U RCX #### [facility] [address] [place] [address] Dr. Monique Bird UA (CLEAN/CATCH) MICROSCOPIC IF INDICATEon 06-27-2021 Bilirubin Ql (U) Negative Normal NEGATIVE [facility] [place] Comment on above: Performed By: #### U ARMICR #### [facility] [address] [place] [address] Dr. Monique Bird Clarity (U) CLEAR Normal CLEAR [facility] Comment on above: Performed By: #### U ARMICR #### [facility] [address] [place] [address] Dr. Monique Bird Color (U) LT. YELLOW Normal YELLOW [facility] Comment on above: Performed By: #### U ARMICR #### [facility] [address] [place] [address] Dr. Monique Bird Glucose Ql (U) >1000 Abnormal NEGATIVE [facility] Comment on above: Performed By: #### U ARMICR #### [facility] [address] [place] [address] Dr. Monique Bird Hemoglobin Ql (U) Negative Normal NEGATIVE [facility] Comment on above: Performed By: #### U ARMICR #### [facility] [address] [address] [address] Monique Bird Ketones Ql (U) Negative Normal NEGATIVE [facility] Comment on above: Performed By: #### U ARMICR #### [facility] [address] [address] [address] Monique Bird LEUKOCYTES Negative Normal NEGATIVE [facility] Comment on above: Performed By: #### U ARMICR #### [facility] [address] [address] [address] Monique Bird Nitrite Ql (U) Negative Normal NEGATIVE [facility] Comment on above: Performed By: #### U ARMICR #### [facility] [address] [place] [address] Dr. Monique Bird pH (U) 6.0 [pH] Normal 5-9 [facility] Comment on above: Performed By: #### U ARMICR #### [facility] [address] [place] [address] Dr. Monique Bird SPEC GRAVITY 1.010 Normal 1.005-<=1.02 5 [facility] Comment on above: Performed By: #### U ARMICR #### [facility] [address] [place] [address] Dr. Monique Bird UA PROTEIN Negative Normal NEGATIVE/ TRACE [facility] Comment on above: Performed By: #### U ARMICR #### [facility] [address] [address] [address] Monique Bird UR MICRO IND NOT INDICATED Normal [facility] Comment on above: Performed By: #### U ARMICR #### [facility] [address] [place] [address] Dr. Monique Bird Urobilinogen Qn (U) 0.2 {Rowan'U}/dL Normal 0.2 - 1. 0 [facility] Comment on above: Performed By: #### U ARMICR #### [facility] [address] [place] [address] Dr. Monique Bird Vital Signs Date Time Vital Sign Value Performing Clinician Facility 01-18-2024 15:28-0400 Blood Pressure Location Radha Orzech [facility] 01-18-2024 15:28-0400 Diastolic blood pressure 90 mm[Hg] Radha Orzech [facility] 01-18-2024 15:28-0400 Heart rate 88 /min Radha Orzech [facility] 01-18-2024 15:28-0400 Systolic blood pressure 150 mm[Hg] Radha Orzech [facility] 12-27-2023 10:51-0400 Blood Pressure Location Liu GOLD [facility] 12-27-2023 10:51-0400 Diastolic blood pressure 90 mm[Hg] Liu GOLD [facility] 12-27-2023 10:51-0400 Heart rate 90 /min Liu GOLD [facility] 12-27-2023 10:51-0400 Systolic blood pressure 160 mm[Hg] Liu GOLD [facility] 08-23-2023 11:44-0400 Blood Pressure Location Liu GOLD [facility] 08-23-2023 11:44-0400 Diastolic blood pressure 84 mm[Hg] Liu GOLD [facility] 08-23-2023 11:44-0400 Heart rate 80 /min Liu GOLD [facility] 06-03-2024 11:44-0400 Respiratory rate 16 /min Liu GOLD [facility] 08-23-2023 11:44-0400 Systolic blood pressure 132 mm[Hg] Liu GOLD [facility] 01-15-2023 10:08-0400 Diastolic blood pressure 81 mm[Hg] Liu GOLD [facility] 01-15-2023 10:08-0400 Heart rate 97 /min Liu GOLD [facility] 01-15-2023 10:08-0400 Respiratory rate 16 /min Liu GOLD [facility] 01-15-2023 10:08-0400 Systolic blood pressure 134 mm[Hg] Liu GOLD [facility] 11-16-2022 11:06-0400 Blood Pressure Location Liu GOLD [facility] 11-16-2022 11:06-0400 Diastolic blood pressure 80 mm[Hg] Liu GOLD [facility] 11-16-2022 11:06-0400 Heart rate 70 /min Liu GODL [facility] 11-16-2022 11:06-0400 Respiratory rate 16 /min Liu GOLD [facility] 11-16-2022 11:06-0400 Systolic blood pressure 136 mm[Hg] Liu GOLD [facility] 09-30-2022 19:18-0400 Diastolic blood pressure 105 mm[Hg] Lopez Sameer [facility] 09-30-2022 19:18-0400 Heart rate 113 /min Lopez Sameer [facility] 09-30-2022 19:18-0400 Respiratory rate 18 /min Lopez Sameer [facility] 09-30-2022 19:18-0400 SaO2% (BldA) [Mass fraction] 96 % Lopez Sameer [facility] 09-30-2022 19:18-0400 Systolic blood pressure 142 mm[Hg] Lopez Sameer [facility] 09-30-2022 17:13-0400 Body temperature 98.06 [degF] Lopez Sameer [facility] 09-30-2022 17:13-0400 Diastolic blood pressure 100 mm[Hg] Lopez Sameer [facility] 09-30-2022 17:13-0400 Heart rate 122 /min Lopez Sameer [facility] 09-30-2022 17:13-0400 Respiratory rate 18 /min Lopez Sameer [facility] 09-30-2022 17:13-0400 SaO2% (BldA) [Mass fraction] 95 % Lopez Sameer [facility] 09-30-2022 17:13-0400 Systolic blood pressure 150 mm[Hg] Lopez Sameer [facility] 09-29-2022 12:13-0400 Blood Pressure Location CRUZITO MCPHERSON [facility] 09-29-2022 12:13-0400 Diastolic blood pressure 84 mm[Hg] CRUZITO MCPHERSON [facility] 09-29-2022 12:13-0400 Heart rate 74 /min CRUZITO MCPHERSON [facility] 09-29-2022 12:13-0400 Respiratory rate 16 /min CRUZITO MCPHERSON [facility] 09-29-2022 12:13-0400 Systolic blood pressure 130 mm[Hg] CURZITO MCPHERSON [facility] Encounters Encounter Date Encounter Type Care Provider Facility Start: 10-09-2024 ambulatory Liu GOLD Facili ty:[facility] Start: 09-19-2024 ambulatory Liu GOLD Facili ty:[id number] Start: 06-26-2024 End: 06-26-2024 ambulatory Liu GOLD Facility:[facility] Start: 06-23-2024 End: 06-24-2024 Lab Drop off Liu GOLD [facility] Start: 06-23-2024 End: 06-24-2024 ambulatory Liu GOLD Facility:[facility] Start: 01-18-2024 End: 01-18-2024 ambulatory Radha X Orzech Facility:[facility] Start: 01-18-2024 End: 01-18-2024 Lab Drop off Radha X Orzech [facility] Start: 01-18-2024 End: 01-18-2024 ambulatory Radha X Orzech Facility:[facility] Start: 01-18-2024 End: 01-18-2024 Patient encounter procedure Radha X Orzech [facility] Start: 12-27-2023 End: 12-27-2023 ambulatory Liu GOLD Facility:[facility] Start: 12-27-2023 End: 12-27-2023 Patient encounter procedure Liu GOLD [facility] Start: 08-23-2023 End: 08-23-2023 ambulatory Liu GOLD Facility:[facility] Start: 08-23-2023 End: 08-23-2023 Patient encounter procedure Liu GOLD [facility] Start: 07-05-2023 End: 07-05-2023 Lab Drop off Liu GOLD [facility] Start: 07-05-2023 End: 07-05-2023 ambulatory Liu GOLD Facility:[facility] Start: 07-05-2023 End: 07-05-2023 Patient encounter procedure Liu GOLD [facility] Start: 04-06-2023 End: 04-06-2023 Patient encounter procedure Liu GOLD [facility] Start: 03-19-2023 End: 03-19-2023 Lab Drop off Liu GOLD [facility] Start: 03-19-2023 End: 03-19-2023 Patient encounter procedure Liu GOLD [facility] Start: 03-03-2023 End: 03-03-2023 ambulatory NON STAFF Facility:[facility] Start: 03-03-2023 End: 03-03-2023 ambulatory NON STAFF [facility] Work Phone: Start: 03-03-2023 End: 03-03-2023 Patient encounter procedure MD Liu Gold Work Phone: [facility] Work Phone: Start: 01-15-2023 End: 01-15-2023 Patient encounter procedure Liu GOLD [facility] Start: 11-16-2022 End: 11-16-2022 Patient encounter procedure Liu GOLD [facility] Start: 09-30-2022 End: 09-30-2022 Emergency department patient visit Lopez Estrella [facility] Start: 09-29-2022 End: 09-29-2022 Lab Drop off CRUZITO MCPHERSON [facility] Start: 09-29-2022 End: 09-29-2022 Patient encounter procedure CRUZITO MCPHERSON [facility] Start: 03-05-2022 End: 03-06-[address] HUBER ROSAS Facility:[facility] Start: 06-27-2021 End: 06-28-[address] HUBER ROSAS Facility:[facility] Procedures Date Procedure Procedure Detail Performing Clinician Start: 04-06-2023 Transrectal biopsy o f prostate using ultrasound guidance Liu GOLD Start: 10-13-2022 Cystoscopy Liu BLANCA Start: 10-13-2022 Urodynamic studies Bindu GOLD Start: 08-09-2018 Cataract extraction and insertion of intraocular lens CRUZITO MCPHERSON Cataract extraction and insertion of intraocular lens CRUZITO MCPHERSON Hernia of abdominal cavity (disorder) CRUZITO MCPHERSON Placement of stent i n coronary artery CRUZITO MCPHERSON Plan of Treatment Date Care Activity Detail Author Start: 03-03-2023 MR Prostate WO and W contrast IV [facility] Start: 03-03-2023 MR prostate wo/w con MR prostate wo/ w con [facility] Immunizations Immunization Date Immunization Notes Care Provider Fa cility 06-18-2020 SARS-CoV-2 (COVID-19 ) mRNA BNT-162b2 vax CRUZITO MCPHERSON [facility] 05-28-2020 SARS-CoV-2 (COVID-19 ) mRNA BNT-162b2 vax CRUZITO MCPHERSON [facility] Payers Date Payer Category Payer Medicare [id number] 2023 Private Health Insurance [id number] [id number] Private Health Insurance [id number] 2023 Self-pay 1959 Medicare [id number] 1959 Private Health Insurance [id number] 1950 Unknown [id number] 2.16.84 [id number] 1950 Unknown [id number] .16.84 [id number] 1950 Unknown [id number] 2.16.8 [id number] 1950 Unknown [id number] 2.16.8 [id number] 1950 Unknown [id number] 2.16.8 [id number] 1950 Unknown [id number] 2.16.8 [id number] 1950 Unknown [id number] 2.16.8 [id number] 1950 Unknown [id number] 2.16.8 [id number] 1950 Unknown [id number] 2.16.8 [id number] 1950 Unknown [id number] 2.16.8 [id number] 1950 Unknown [id number] 2.16.8 [id number] 1950 Unknown [id number] 2.16.8 [id number] Unknown [id number] 2.16.8 [id number] Social History Date Type Detail Facility Start: 09-29-2022 End: 01-18-2024 Tobacco smoking status Never smoked tobacco (finding) [facility] Tobacco smoking status Never [facility] Sex Assigned At Male [facility] Start: 1950 Sex Assigned At Male [facility] Sexual Orientation [facility] Start: 06-09-2018 Sex Male (finding) [facility] Functional Status Date Assessment Result Facility 01-18-2024 Functional Status N/A [facility] 12-27-2023 Functional Status N/A [facility] 08-23-2023 Functional Status N/A [facility] 04-06-2023 Functional Status N/A [facility] 01-15-2023 Functional Status N/A [facility] 11-16-2022 Functional Status N/A [facility] 09-30-2022 Functional Status N/A [facility] 09-29-2022 Functional Status N/A [facility] Clinical Notes 09-29-2022 to 06-26-2024 Note Date & Type Note Facility 06-26-2024 Note Patient Education Oncology Transrectal Ultrasound-Guided Prostate Biopsy A transrectal ultrasound-guided prostate biopsy is a procedure to remove samples of prostate tissue for testing. The prostate is a walnut-sized gland that is located below the bladder and in front of the rectum. During this procedure, a small device (probe) is lubricated and put inside the rectum. The probe sends out sound waves that make a picture of the prostate and surrounding tissues (transrectal ultrasound). The images are used to help guide the process of removing the samples. The samples are taken to a lab to be checked for prostate cancer. This procedure is usually done to evaluate the prostate gland of men who have raised (elevated) levels of prostate-specific antigen (PSA), which can be a sign of prostate cancer or prostate enlargement related to aging (benign prostatic hyperplasia, or BPH). Tell a health care provider about: ??? Any allergies you have. ??? All medicines you are taking, including vitamins, herbs, eye drops, creams, and uwgf-uxg-mpmchel medicines. ??? Any problems you or family members have had with anesthetic medicines. ??? Any bleeding problems you have. ??? Any surgeries you have had. ??? Any medical conditions you have. ??? Any prostate infections you have had. What are the risks? Generally, this is a safe procedure. However, problems may occur, including: ??? Prostate infection. ??? Bleeding from the rectum. ??? Blood in the urine. ??? Allergic reactions to medicines. ??? Damage to surrounding structures such as blood vessels, organs, or muscles. ??? Difficulty passing urine. ??? Nerve damage. This is usually temporary. What happens before the procedure? Medicines Ask your health care provider about: ??? Changing or stopping your regular medicines. This is especially important if you are taking diabetes medicines or blood thinners. ??? Taking medicines such as aspirin and ibuprofen. These medicines can thin your blood. Do not take these medicines unless your health care provider tells you to take them. ??? Taking zgai-wnr-mmmodqh medicines, vitamins, herbs, and supplements. General instructions ??? Follow instructions from your health care provider about eating and drinking. In most instances, you will not need to stop eating and drinking completely before the procedure. ??? You will be given an enema. During an enema, a liquid is injected into your rectum to clear out waste. ??? You may have a blood or urine sample taken. ??? Ask your health care provider what steps will be taken to help prevent infection. These steps may include: ? Washing skin with a germ-killing soap. ? Taking antibiotic medicine. ??? If you will be going home right after the procedure, plan to have a responsible adult: ? Take you home from the hospital or clinic. You will not be allowed to drive. ? Care for you for the time you are told. What happens during the procedure? An IV will be inserted into one of your veins. ??? You will be given one or both of the following: ? A medicine to help you relax (sedative). ? A medicine to numb the area (local anesthetic). ??? You will be placed on your left side, and your knees will be bent toward your chest. ??? A probe with lubricated gel will be placed into your rectum, and images will be taken of your prostate and surrounding structures. ??? Numbing medicine will be injected into your prostate. ??? A biopsy needle will be inserted through your rectum or perineum and guided to your prostate using the ultrasound images. ??? Prostate tissue samples will be removed, and the needle and probe will then be removed. ??? The biopsy samples will be sent to a lab to be tested. The procedure may vary among health care providers and hospitals. What happens after the procedure? Your blood pressure, heart rate, breathing rate, and blood oxygen level will be monitored until you leave the hospital or clinic. ??? You may have some discomfort in the rectal area. You will be given pain medicine as needed. ??? If you were given a sedative during the procedure, it can affect you for several hours. Do not drive or operate machinery until your health care provider says that it is safe. ??? It is up to you to get the results of your procedure. Ask your health care provider, or the department that is doing the procedure, when your results will be ready. ??? Keep all follow-up visits. This is important. Summary ??? A transrectal ultrasound-guided biopsy removes samples of tissue from your prostate using ultrasound-guided sound waves to help guide the process. ??? This procedure is usually done to evaluate the prostate gland of men who have raised (elevated) levels of prostate-specific antigen (PSA), which can be a sign of prostate cancer or prostate enlargement related to aging. ??? After your procedure, you may feel some discomfort in the rectal area. ?? (more content not included)... [facility] 12-27-2023 Hospital Discharge instructions Patient Education 12/27/2023 11:49:12 Acute Urinary Retention, Male Acute Urinary Retention, [...] Follow these instructions at home: Medicines Take wtoa-qef-uarivhr and prescription medicines only as told by [...] provider. Document Revised: 11/27/2020 Document Reviewed: 11/27/2020 [employer] Patient Education 2023 [employer]. Follow Up Care 08/23/2023 12:29:54 With:RUSSELL WOOTEN, Liu Baker, URL Address: [facility] [address] , [place] [address]- [phone] When: Unknown [facility] 12-27-2023 Note Patient Education Urology Acute Urinary Retention, Male Acute urinary retention [...] causes? This condition may be caused by: ? Obstruction or narrowing of the tube that drains the bladder (urethra). This may be caused by surgery, problems with nearby organs, or injury to the bladder or urethra. ? Problems with the nerves in the bladder. ? Tumors in the area of the pelvis, bladder, or urethra. ? Certain medicines. ? Bladder or urinary tract infection. ? Constipation. What increases the risk? This condition is more likely to develop in older men. As men age, their prostate may become larger and may start to press or squeeze on the bladder or the urethra. Other chronic health conditions can increase the risk of acute urinary retention. These include: ? Diseases such as multiple sclerosis. ? Spinal cord injuries. ? Diabetes. ? Degenerative cognitive conditions, such as delirium or dementia. ? Psychological conditions. A man may hold his urine due to trauma or because he does not want to use the bathroom. What are the signs or symptoms? Symptoms of this condition include: ? Trouble urinating. ? Pain in the lower abdomen. How is this diagnosed? This condition is diagnosed based on a physical exam and your medical history. You may also have other tests, including: ? An ultrasound of the bladder or kidneys or both. ? Blood tests. ? A urine analysis. ? Additional tests may be needed, such as a CT scan, MRI, and kidney or bladder function tests. How is this treated? Treatment for this condition may include: ? Medicines. ? Placing a thin, sterile tube (catheter) into the bladder to drain urine out of the body. This is called an indwelling urinary catheter. After it is inserted, the catheter is held in place with a small balloon that is filled with sterile water. Urine drains from the catheter into a collection bag outside of the body. ? Behavioral therapy. ? Treatment for other conditions. If needed, you may be treated in the hospital for kidney function problems or to manage other complications. Follow these instructions at home: Medicines ? Take jqok-plc-gnfxqdl and prescription medicines only as told by your health care provider. Avoid certain medicines, such as decongestants, antihistamines, and some prescription medicines. Do not take any medicine unless your health care provider approves. ? If you were prescribed an antibiotic medicine, take it as told by your health care provider. Do not stop using the antibiotic even if you start to feel better. General instructions ? Do not use any products that contain nicotine or tobacco. These products include cigarettes, chewing tobacco, and vaping devices, such as e-cigarettes. If you need help quitting, ask your health care provider. ? Drink enough fluid to keep your urine pale yellow. ? If you have an indwelling urinary catheter, follow the instructions from your health care provider. ? Monitor any changes in your symptoms. Tell your health care provider about any changes. ? If instructed, monitor your blood pressure at home. Report changes as told by your health care provider. ? Keep all follow-up visits. This is important. Contact a health care provider if: ? You have uncomfortable bladder contractions that you cannot control (spasms). ? You leak urine with the spasms. Get help right away if: ? You have chills or a fever. ? You have blood in your urine. ? You have a catheter and the following happens: ? Your catheter stops draining urine. ? Your catheter falls out. Summary ? Acute urinary retention is a condition in which a person is unable to pass urine or can only pass a little urine. If left untreated, this condition can result in kidney damage or other serious complications. ? An enlarged prostate may cause this condition. As men age, their prostate gland may become larger and may press or squeeze on the bladder or the urethra. ? Treatment for this condition may include medicines and placement of an indwelling urinary catheter. ? Monitor any changes in your symptoms. Tell your health care provider about any changes. This information is not intended to replace advice given to you by your health care provider. Make sure you discuss any questions you have with your health care provider. Document Revised: 11/27/2020 Document Reviewed: 11/27/2020 [employer] Patient Education ? 2023 [employer]. [facility] 08-23-2023 Hospital Discharge instructions Patient Education 08/23/2023 [...] Follow these instructions at home: Medicines Take ylta-mio-iioxksg and prescription medicines only as told by [...] important. Where to find more information National [place] of Diabetes and Digestive and Kidney Diseases: [...] depends on the type of prostatitis. Take imbf-gld-ybivyxn and prescription medicines only as told by [...] provider. Document Revised: 04/12/2020 Document Reviewed: 04/12/2020 [employer] Patient Education 2022 [employer]. Follow Up Care 04/23/2023 12:26:11 With:RUSSELL WOOTEN, Liu Baker, URL Address: [facility] [address] [place] [address] [phone] When: Unknown Comments:4 mos w/ 2 PSAs [facility] 04-06-2023 Hospital Discharge instructions Patient Education 04/06/2023 [...] for your post-operative appointment in 1-2 weeks [phone] or [phone] Follow Up Care 03/18/2023 10:49:08 With:Liu GOLD Address: [facility] [address], [place] [address]- Business (1) When: Unknown Comments:Keep scheduled appointment [facility] 01-15-2023 Hospital Discharge instructions Patient Education 01/15/2023 [...] treatment? Where to find more information [employer] [place] [employer]: www.cancer.org [place] [employer]: www.auanet.org Contact a health care [...] provider. Document Revised: 09/01/2021 Document Reviewed: 09/01/2021 [employer] Patient Education 2022 [employer]. Follow Up Care 11/16/2022 12:16:28 With:RUSSELL WOOTEN, Liu Baker, URL Address: [address] [place] [phone] When: Unknown [facility] 11-16-2022 Hospital Discharge instructions Patient Education [...] Follow these instructions at home: Medicines Take jtdr-dnp-qicqhro and prescription medicines only as told by [...] provider. Document Revised: 11/27/2020 Document Reviewed: 11/27/2020 [employer] Patient Education 2022 [employer]. Follow Up Care 10/13/2022 15:11:59 With:Liu GOLD MD, URL Address: [facility] [address] [place] [address] [phone] When: Unknown Comments:2 months w/ PSA [facility] 09-30-2022 Hospital Discharge instructions Patient Education 09/30/2022 [...] Treatment for this condition includes: Antibiotic medicine. Zxwn-whi-pqvmwyf medicines to treat discomfort. Drinking enough water [...] Follow these instructions at home: Medicines Take krqh-xna-fiqyliw and prescription medicines only as told by [...] provider. Document Revised: 10/18/2020 Document Reviewed: 10/18/2020 [employer] Patient Education 2022 [employer]. 09/30/2022 19:11:01 Hematuria, Adult Hematuria, Adult Hematuria [...] Follow these instructions at home: Medicines Take xtgo-zug-wxolnaj and prescription medicines only as told by [...] or the blood stops without treatment. Take igyg-apq-ejbehao and prescription medicines only as told by your health care provider. Drink enough fluid to keep your urine pale yellow. This information is not intended to replace advice given to you by your health care provider. Make sure you discuss any questions you have with your health care provider. Document Revised: 11/06/2020 Document Reviewed: 11/06/2020 [employer] Patient Education 2022 [employer]. Follow Up Care 09/30/2022 17:11:09 With:Huber Rosas Address: [address] [place] [phone] Business (1) When:10/03/2022 19:10:51 Comments:Call the office [...] you develop any new or worsening symptoms. [facility] 09-30-2022 Evaluation + Plan note Extrac gopal from: Title:ED Note Author:Aidan SANTOYO, Talat Reyes e:09/30/22 Urinary tract infection (N39 .0: Urinary tract infection, site not specified) Orders: cephalexin, 500 mg = 1 cap(s), Oral, q12hr, X 7 day(s), # 14 cap(s), Refills(s) 0, Pharmacy: [facility]/pharmacy #[id number], 189, cm, 09/30/22 17:16:00 EDT, Height/Length Dosing, 98, kg, 09/30/22 17:16:00 EDT, Weight Dosing cephalexin, 500 mg = 1 cap(s), Cap, Oral, Once, Stop date 09/30/22 19:09:00 EDT, STAT, Start date 09/30/22 19:09:00 EDT, 09/30/22 19:09:00 EDT Automated Diff Basic Metabolic Panel CBC w/ Auto Diff eGFR Future Appointments Appointment Date:10/06/2022 09:30:00 AM Scheduled Provider: Location:[facility] Appointment Type:Urology CALL PAT FT Appointment Date:10/13/2022 01:00:00 PM Scheduled Provider: Location:[facility] Appointment Type:Urology FT Appointment Date:10/13/2022 02:30:00 PM Scheduled Provider: Location:[facility] Appointment Type:Urology FT Diagnostic Tests Pending * Urine Culture 09/30/22 [facility]07[facility]2023 Hospital Discharge instructions Patient Education 09/29/2022 12:59:34 [...] including vitamins, herbs, eye drops, creams, and iduw-zvk-vqxwunp medicines. ?Whether you are or may be [...] provider. Document Revised: 11/19/2021 Document Reviewed: 10/11/2020 [employer] Patient Education 2022 [employer]. Follow Up Care 09/24/2022 14:42:37 With:CRUZITO MCPHERSON PA-C, URL Address: [address] [place] [phone] When: Unknown Comments:Zheng copeland/ Dr. Gold [facility] evaluation + Plan note Future Appointments Appointment Date:10/06/2022 09:30:00 AM Scheduled Provider: Location:[facility] Appointment Type:Urology CALL PAT FT Appointment Date:10/13/2022 01:00:00 PM Scheduled Provider: Location:[facility] Appointment Type:Urology FT Appointment Date:10/13/2022 02:30:00 PM Scheduled Provider: Location:[facility] Appointment Type:Urology FT [facility] evaluation + Plan note Future Appointments Appointment Date:10/06/2022 09:30:00 AM Scheduled Provider: Location:[facility] Appointment Type:Urology CALL PAT FT Appointment Date:10/13/2022 01:00:00 PM Scheduled Provider: Location:[facility] Appointment Type:Urology FT Appointment Date:10/13/2022 02:30:00 PM Scheduled Provider: Location:[facility] Appointment Type:Urology FT Diagnostic Tests Pending * Urine Culture [facility] Future App[facility]ments Appointment Date:01/15/2023 09:45:00 AM Scheduled Provider:Liu GOLD MD [facility] Type:URO Office Visit Diagnostic Tests Pending * PSA Total 11/16/22 [facility] evaluation + Plan note Future Appointments Appointment Date:05/14/2023 11:00:00 AM Scheduled Provider:Liu GOLD MD [facility] App[facility] Type:URO Office Visit [facility] evaluation + Plan note Future Appointments Appointment Date:04/06/2023 01:00:00 PM Scheduled Provider: Location:[facility] Appointment Type:Urology FT Appointment Date:04/06/2023 01:00:00 PM Scheduled [facility]:US Prostate Urology (FT) Appointment Date:04/23/2023 11:00:00 AM Scheduled Provider:Liu GOLD MD [facility] App[facility] Type:URO Office Visit Appointment Date:05/14/2023 11:00:00 AM Scheduled Provider:Liu GOLD MD [facility] App[facility] Type:URO Office Visit Future Scheduled Tests Radiology* US Prostate, [facility] 04/06/23 [facility] evaluation + Plan note Future Appointments Appointment Date:04/06/2023 01:00:00 PM Scheduled Provider: Location:[facility] Appointment Type:Urology FT Appointment Date:04/06/2023 01:00:00 PM Scheduled Provider: [facility] Type:US Prostate Urology (FT) Appointment Date:04/23/2023 11:00:00 AM Scheduled Provider:Liu GOLD MD [facility] App[facility] Type:URO Office Visit Appointment Date:05/14/2023 11:00:00 AM Scheduled Provider:Liu GOLD MD [facility] Appointment Type:URO Office Visit Diagnostic Tests Pending * Urine Culture 03/19/23 Future Scheduled Tests Radiology* US Prostate, [facility] App[facility]ments Appointment Date:04/23/2023 11:00:00 AM Scheduled Provider:Liu GOLD MD Location:[facility] Appointment Type:URO Office Visit Diagnostic Tests Pending * Prostate Histology ([facility]) [facility]06[facility]23 [facility] Future App[facility]ments Appointment Date:08/23/2023 11:15:00 AM Scheduled Provider:Liu GOLD MD Location:[facility] Appointment Type:URO Office Visit Diagnostic Tests Pending * Urine Culture [facility]05[facility]23 [facility] Future Appointments Appointment Date:08/23/2023 11:15:00 AM Scheduled Provider:Liu GOLD MD Location:[facility] Appointment Type:URO Office Visit [facility] evaluation + Plan note Future Appointments Appointment Date:12/27/2023 10:45:00 AM Scheduled Provider:Liu GOLD MD Location:[facility] Appointment Type:URO Office Visit Diagnostic Tests Pending * PSA Total 08/23/23 [facility] evaluation + Plan note Future Appointments Appointment Date:06/26/2024 10:45:00 AM Scheduled Provider:Liu GOLD MD Location:[facility] Appointment Type:URO Office Visit Diagnostic Tests Pending * PSA Total 12/27/23 [facility] evaluation + Plan note Future Appointments Appointment Date:06/26/2024 10:45:00 AM Scheduled Provider:Liu GOLD MD Location:[facility] Appointment Type:URO Office Visit Diagnostic Tests Pending * Urine Culture 01/18/24 [facility] Evaluation + Plan note Future Appointments Appointment Date:06/26/2024 10:45:00 AM Scheduled Provider:Liu GOLD MD Location:[facility] Appointment Type:URO Office Visit [facility] evaluation noteNo assessment information available [facility] Work Phone: Hospital course Narrative No data available for this section [facility] Hospital Discharge instructions No data available for this section [facility] No data available for this section [facility] Summary Purpose Family History No Family [...] for this section No Family History Records FoundNo Family History Records FoundNo Family History Records Found Advance Directives No Advanced Directives Records Found Advance Directive Response Recorded Date/ Time Advance Directives No January 4:36pm Chief Complaint and Reason for Visit Chief Complaint Elevated PSA Additional Source Comments (unrecognized sect ion and content) No Status Records FoundNo Status Records FoundNo Status Records FoundNo Status Records FoundNo Status Records FoundNo Status Records Found INFORMATION SOURCE (unrecogn ized section and content) DATE CREATED AUTHOR 03/12/2022 [facility] DATE CREATED AUTHOR AUTHOR'S ORGANIZ ATION 04/10/2023 [facility] DATE CREATED AUTHOR AUTHOR'S ORGANIZ ATION 01/22/2024 [facility] DATE CREATED AUTHOR AUTHOR'S ORGANIZ ATION 06/25/2024 [facility] DATE CREATED AUTHOR AUTHOR'S ORGANIZ ATION 06/27/2024 [facility] DATE CREATED AUTHOR AUTHOR'S ORGANIZ ATION 09/03/2024 [facility] Patient Care team informatio n (unrecognized section [...] BE BASED ON THE PRIMARY CLINICAL RECORDS. [facility]. provides no warranty or guarantee of the accuracy or completeness of information in this document.
== END 2024-09-07 13:35 | disposition home or self-care (01) ==
LOC: PST 13:34
PROVIDERS: PCP Family Medicine; Visit Provider Urology
DX: Z01.818 Encounter for other preprocedural examination (principal); R97.20 Elevated prostate specific antigen [PSA]

== ENCOUNTER 2024-09-19 07:27 | Day surgery (SDC) | payer MEDICARE, SELFPAY ==
--- OUTSIDE RECORDS SUMMARY | 2024-09-19 07:32 | XMS_ITS | Clinical Summary ---
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 Active miSOPROStol (Cytotec) 100 MCG tablet Take 1 tablet by mouth in the morning and 1 tablet at noon and 1 tablet in the evening and 1 tablet before bedtime. Active insulin glargine (Toujeo Max SoloStar) 300 UNIT/ML injection Inject 30 Units under the skin at bedtime Active meloxicam (Mobic) 15 MG tablet Take 1 tablet by mouth Daily Active insulin pen needle (BD Pen Needle Jaclyn U/F) 32G x 4 mm misc Inject 1 each under the skin Daily Use as instructed Active metFORMIN (Glucophage) 1000 MG tablet Take 1 tablet by mouth in the morning. Take with meals. Active rosuvastatin (Crestor) 20 MG tablet Take 1 tablet by mouth Daily Active memantine (Namenda) 10 MG tablet Take 1 tablet by mouth Daily Active esomeprazole (NexIUM) [address] capsule Take 1 capsule by mouth in the morning. Take before meals. Do not open capsule.. Active glimepiride (Amaryl) 4 MG tablet Take 1 tablet by mouth in the morning and 1 tablet before bedtime. Active SITagliptin-met FORMIN (Janumet) 50-1000 MG tablet Take 1 tablet by mouth in the morning and 1 tablet in the evening. Take with meals. Active insulin NPH, Isophane, (NovoLIN N FlexPen) 100 UNIT/ML injection Inject 20 Units under the skin in the morning and 20 Units in the evening. Inject before meals. Active insulin regular (NovoLIN R FlexPen) 100 UNIT/ML pen Inject 10 Units under the skin in the morning and 10 Units in the evening. Inject with meals. Active Family History Relation Name Status Comments Brother x 1 Alive Daughter x 2 Alive Father Mother Son x 1 Social History Tobacco Use Types Packs/Day Years Used Date Smoking Tobacco: Former Cigarettes Tobacco Cessation:Counseling Given: Not Answered Alcohol Use Standard Drinks/Week Comments Yes 0 (1 standard drink = 0.6 oz pur e alcohol) Occasionally Sex and Gender Information Value Date Recorded Sex Assigned at Not on file Legal Sex Male 7:01 PM EDT Gender Identity Not on file Sexual Orientation Not on file Last Filed Vital Signs Vital Sign Reading Time Taken Comments Blood Pressure 116/70 03/03/2022 11:14 AM EST Pulse 33 03/03/2022 11:14 AM EST Temperature - - Respiratory Rate 18 03/03/2022 11:14 AM EST Oxygen Saturation 88% 03/03/2022 11:14 AM EST Inhaled Oxygen Concentration - - Weight 86.6 kg (191 lb) 03/03/2022 11:14 AM EST Height 188 cm (6' 2 ) 03/03/2022 11:14 AM EST Body Mass Index 24.52 03/03/2022 11:14 AM EST Plan of Treatment Not on file Care Teams Meat Soaker Relationship Specialty Start Date End Date Huber Canchola MD [address] [place] [address] PCP - General Family Medicine 06/30/24
--- OUTSIDE RECORDS SUMMARY | 2024-09-19 07:38 | XMS_ITS | CCD ---
Author Organization [facility] Inform ion Partnership [facility] Care Team Providers Care Rn Nicu Name Role Phone HOUSE, DR CORTES Primary Care Unavailable HOUSE, DR CORTES Admitting Unavailable HOUSE, DR CORTES Attending Unavailable HOUSE, DR CORTES Consulting Unavailable HOUSE, DR CORTES Primary Care Unavailable HOUSE, DR CORTES Admitting Unavailable HOUSE, DR CORTES Attending Unavailable HOUSE, DR CORTES Consulting Unavailable Huber Rosas Primary Care Physician Renée Groves Unavailable Unavailable MD Liu Gold [...] Drug Allergy Malaise (finding) [facility] (1 source) Unable to Assess Drug allergy (disorder) [address] [place] [address] Repository Medications Current Medications Medication Drug Class(es) Dates Sig (Normalized) Sig (Original) cephalexin 500 mg oral capsule (4 sources) Cephalosporin Antibacterial Start: 07-05-2023 End: 07-12-2023 take 1 capsule by mouth every twelve hours Keflex 500 mg Cap 500 mg = 1 cap(s), Oral, q12hr, X 7 day(s), # 14 cap(s), Refills(s) 0, Pharmacy: [facility]/pharmacy #[id number], 189, cm, 04/23/23 11:48:00 EST, Height/Length Dosing, 95.2, kg, 04/23/23 11:48:00 EST, Weight Dosing Start Date: 07/05/23 Stop Date: 07/12/23 Status: Ordered Start: 09-30-2022 End: 10-07-2022 take 1 capsule by mouth every twelve hours cephalexin 500 mg Cap 500 mg = 1 cap(s), Oral, q12hr, X 7 day(s), # 14 cap(s), Refills(s) 0, [id number], cm, 09/30/22 17:16:00 EDT, Height/Length Dosing, 98, kg, 09/30/22 17:16:00 EDT, Weight Dosing Start Date: 09/30/22 Stop Date: 10/07/22 Status: Ordered ciprofloxacin 500 mg oral tablet (6 sources) Quinolone Antimicrobial Start: 03-18-2023 End: 03-25-2023 Cipro 500 mg Tab 500 mg = 1 tab(s), Oral, q12hr, Start 3 days prior to procedure, X 7 day(s), # 14 tab(s), Refills(s) 0, [id number], cm, 01/15/23 10:11:00 EDT, Height/Length [...] cysto, # 2 tab(s), Refills(s) 0, Pharmacy: [facility] #[id number], 189, cm, 09/29/22 12:16:00 EDT, Height/Length [...] week(s), # 112 cap(s), Refills(s) 0, Pharmacy: [facility]/pharmacy #[id number], 188, cm, 01/18/24 15:44:00 EDT, Height/Length [...] day(s), # 21 tab(s), Refills(s) 0, Pharmacy: [facility]/pharmacy #[id number], 189, cm, 11/16/22 11:08:00 EDT, Height/Length [...] Daily, # 30 tab(s), Refills(s) 0, Pharmacy: [facility]/pharmacy #[id number], 188, cm, 12/27/23 11:12:00 EDT, Height/Length [...] after completion of 3 week antibiotic course., [facility] #[id number], 189, cm, 08/23/23 11:46:00 EDT, Height/Length [...] Liu GOLD MD Where: [facility] [address] [place] [address]- You Need to Schedule the Following Appointments Follow Up with Liu GOLD MD, URL When: Where: [facility] [address], [place] [phone] Medications What How Much When Why Instructions New ciprofloxacin (Cipro 500 mg Tab) 1 Tablets By Mouth 2 times a day Prostate cancer Duration: 10 Days start 6 days prior to procedure Pickup at [facility]/pharm[facility] #[id number] Unchanged insulin regular (Relion R FlexPen 100 units/ mL injectable solution) Contact prescribing physician if questions or concerns Pharmacy Information [facility]/pharmacy #[id number]: [address], [place] [phone] Allergies Zocor (Malaise) Problems Ongoing - Any [...] including vitamins, herbs, eye drops, creams, and rodh-ypy-lqcmvgl medicines. ??? Any problems you or family [...] tells you to take them. ??? Taking ytse-egq-kqtsulh medicines, vitamins, herbs, and supplements. General instructions ??? Follow instructions from your health care provi (more content not included)... [facility] Urology Office/Clinic Noteon 06-26-2024 Urology Office/Clinic Note [...] zone. PI-RADS 4. S/p TRUS/bx 04/06/23 - Maria Isabel 6 [...] placed at OV 09/29/22 and presented to [facility] the following day for seeing blood [...] DS bi (more content not included)... Normal [facility] Comment on above: Result Comment: Elec tronically [...] WOOTEN, Liu Baker Where: [place] [address]- Medications What How Much When Instructions Unchanged [...] for choosing us for your care. [facility] CHEMISTRYOrdered By: SYSTEM SYSTEM on 06-23-2024 Prostate specific Ag [Mass/Vol] 6.9 ng/mL High 0.1 - 3.5 ng/mL [facility] Comment on above: Interpretive Data: T he concentration of PSA determined by different manufacturers can vary due to differences in assay methods and reagent specificity. Values obtained from different assay methods cannot be used interchangeably. The methodology used for this result was chemiluminescence using [employer]'s Access Hybritech PSA reagent. PSA Totalon 06-23-2024 Prostate specific Ag [Mass/Vol] 6.9 ng/mL High 0.1-3.5 [facility] Comment on above: Result Comment: The concentration of PSA determined by different manufacturers can vary due to differences in assay methods and reagent specificity. Values obtained from different assay methods cannot be used interchangeably. The methodology used for this result was chemiluminescence using [employer]s Access Hybritech PSA reagent. Performed By: #### 1 [id number] #### [facility] [address] [place] [address] C Urineon 01-20-2024 Bacteria identified Cx Nom (U) Microbiology PROCEDURE: Urine Culture [R1] SOURCE: U Random BODY SITE: COLLECTED DATE/TIME: 01/18/2024 15:58 EDT RECEIVED DATE/TIME: 01/18/2024 17:46 EDT START DATE/TIME: 01/18/2024 17:46 EDT FREE TEXT SOURCE: Laura LONDONO, MENTAL HEALTH DIRECTOR-C, Laura LONDONO, MENTAL HEALTH DIRECTOR-C, Radha X Radha X FINAL REPORTS Final [...] Locations R1: This test was performed at: [facility], [address] [place] [address], [phone] , , [facility] Comment on above: Performed By: #### 2 [id number] #### [facility] [address] [place] [address] Ambulatory Visit Summaryon 1 Ambulatory Visit Summary [...] WOOTEN, Liu Baker Where: [facility] [address] [place] [address]- Medications What How Much When Why Instructions New doxycycline (doxycycline hyclate 100 mg Cap) 1 Capsules By Mouth 2 times a day Chronic prostatitis Duration: 8 Weeks may substitute hyclate for monohydrate based on availability Pickup at [facility] #[id number] Unchanged insulin regular (Relion R FlexPen 100 units/ mL injectable solution) Unchanged mirabegron (mirabegron 50 mg oral tablet, extended release) 1 Tablets By Mouth Every day Unchanged sulfamethoxazole-trim ethoprim (sulfamethoxazole-tri methoprim 800 mg-160 mg Tab) 1 Tablets By Mouth Every day Pharmacy Information [facility] #[id number]: [address], [place] [phone] Allergies Zocor (Malaise) Problems Ongoing - Any [...] for choosing us for your care. [facility] Provider Letteron 01-07-2024 Provider Letter Provider Letter January 07, 2024 HALINA RASHID [address] [place] [id number] : 1950 Dear Halina E Gay, We have been trying to reach you with no success. It is important that you return our call regarding your results upon receiving this letter. Also, at the time of your call, please provide us with your current information. Thank you for your prompt attention to this matter. Sincerely, Liu Gold M.D. [address] [phone] [facility] Ambulatory Visit Summaryon 1 Ambulatory Visit Summary [...] Liu GOLD MD Where: [facility] [address] [place] [address]- You Need to Schedule the Following Appointments Follow Up with Liu GOLD MD, URL When: Where: [facility] [address], [place] [phone] Medications What How Much When Instructions New mirabegron (mirabegron 50 mg oral tablet, extended release) 1 Tablets By Mouth Every day Pickup at [facility] #6118 Unchanged insulin regular (Relion R FlexPen 100 units/ mL injectable solution) Contact prescribing physician if questions or concerns Unchanged sulfamethoxazole-trim ethoprim (sulfamethoxazole-tri methoprim 800 mg-160 mg Tab) 1 Tablets By Mouth Every day Contact prescribing physician if questions or concerns Pharmacy Information [facility] #[id number]: [address], [place] [phone] Allergies Zocor (Malaise) Problems Ongoing - Any [...] is inserted, (more content not included)... [facility] Office/Clinic Noteon 12-27-2023 Urology Office/Clinic Note [...] right peripheral zone. S/p TRUS/bx 04/06/23 - [place] 6 (3+3) GG1. 8% of core involvement.[1] Pt had PSA level drawn this morning at [facility], results not final yet. -Will call pt with PSA results -F/u in 6 mos w/ PSA 2. 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 3. Urinary retention (R33.9: Retention of urine, unspecified) Pt had 18 Fr catheter placed at [facility] 09/29/22 and presented to [facility] the following day for seeing blood [...] mg qd. 1 month supply sent to [facility]. Pt would like refills to be sent to [facility] in future. 4. BPH with obstruction/lower urinary [...] gross hematuria. (more content not included)... Normal [facility] Comment on above: Result Comment: Elec tronically [...] Liu GOLD MD Where: [facility] Patient Educationon 08-23-19 24 Patient Education Infectious [...] these instructions at home: Medicines ? Take qcob-hsh-uqqfzus and prescription medicines only as told by [...] Where to find more information ? National [place] of Diabetes and Digestive and Kidney Diseases: (more content not included)... Normal [facility] Urology Office/Clinic Noteon 08-23-2023 Urology [...] right peripheral zone. S/p TRUS/bx 04/06/23 - [place] 6 (3+3) GG1. 8% of core involvement. [...] placed at [facility] 09/29/22 and presented to [facility] the following day for seeing blood [...] [facility] [address], [place] [phone] Additional Instructions: 4 mos w/ 2 PSAs Patient Education Prostatitis I, Dejah Larson, personally scribed for Dr. Gold on 08/23/2023 12:28:50. . Documentation recorded by the scribe, Dejah Larson, accurately reflects the services(s) I performed and decisions made by me. Authenticated by Dr. Gold on 08/23/2023 12:34:29. Problem List/Past Medical H (more content not included)... [facility] Comment on above: Result Comment: Elec tronically Signed By: Liu GOLD MD\.br\Date and Time Signed: 08/23/23 12:34 EDT\.br\Electronically Co-Signed By: Dejah Larson\.br\Date and Time Co-Signed: 08/23/23 12:29 EDT Lab Reportson 08-22-2023 Lab Reports [id number]. 00TIFF [facility] C Urineon 07-07-2023 Bacteria identified Cx [...] LIMA=mcg/m;(mg/L), S*=Predicted susceptible interp, R*=Predicted resistant interp [facility] Antibiotic LIMA Dilutn LIMA Interp Amikacin <=16 [...] Locations R1: This test was performed at: [facility], [address] [place] [address], [address] , [place], Normal [facility] Comment on above: Performed By: #### 2 [id number] ####[facility] [address] [place] [address] MR prostate wo/w conon 03-04 MR prostate wo/w con [facility] Main [address] [address] MRI Report Signed Patient: Halina Rashid MR#: [id number] : 1950 Acct:[id number] Age/Sex: 72 / M ADM Date: 03/03/23 Loc: MR Room: Type: [facility] Attending Dr: Liu Gold MD Copies to: [...] Kam Jr., Khoa03/04/2023 9:23 AM Dictation Location: [facility] Transcribed By: [facility] 03/04/23922 Dictated By: Ector Kam Jr DO 03/04/23913 Signed By: 03/04/23922 Normal [facility] ISTAT XRay CREon 03-03-2023 Creatinine [Mass/Vol] 1.7 mg/dL High 0.6-1.3 [facility] Comment on above: Result Comment: ER/E SD physician is notified/shown all ISTAT results. Critical values may be confirmed by laboratory testing if deemed necessary by ER attending doctor. Performed By: #### I SCRE #### [facility] [address] [place] [address] ISTAT GFR 42.303 [facility] Comment on above: Result Comment: PERF ORMED BY: [address] [place] [address] PATHOLOGIST SPECIAL NEEDS TEACHER NORA ADAM M.D. Performed By: #### I SCRE #### [facility] [address] [place] [address] CHEMISTRYOrdered By: SYSTEM SYSTEM on 09-30-2022 Anion [...] Interpretation Code Negative FT UA Auto SS [place].plasma/Lithiu m.RBC (Bld) [Mass ratio] >75 /HPF Invalid Interpretation Code 0-3/HPF FT UA Auto SS Nitrite Ql (U) Positive *ABN* (09/30/22 6:12 PM) Invalid Interpretation Code Negative FT UA Auto SS pH (U) 7.0 *NA* (09/30/22 6:12 PM) Invalid Interpretation Code 5.0 - 9.0 [facility] UA Auto SS Protein (U) [Mass/Vol] 3+ *ABN* (09/30/22 6:12 PM) Invalid Interpretation Code Negative [facility] UA Auto SS Specific gravity (U) [Rel density] 1.015 *NA* (09/30/22 6:12 PM) Invalid Interpretation Code 1.005 - 1.030 [facility] UA Auto SS UA Spec Desc Clean Catch (09/30/22 6:12 PM) Normal [facility] UA Auto SS Urobilinogen Qn (U) [id number] {Rowan'U}/dL Invalid Interpretation Code 0.0 - 1.0 [...] 37 mL/min/1.73 m2 Low >=59mL/min/1 .73 m2 [facility] Chem S Glucose [Mass/Vol] 175 mg/dL Normal [...] Lyme Total Antibody,EIA Negative Normal Negative [facility] Comment on above: Result Comment: [...] recommended. Performed By: #### L YMA #### [facility] [address] [place] [address] [address] Monique Bird T. PALLIDIUM AB (FTA-AB)on 05-07-2021 T pallidum Ab (FTA-Ab) Non-Reactive Normal Non Reactive [facility] Comment on above: Performed By: #### T REPP #### [facility] [address] [address] [address] Monique Bird CBC AUTO DIFFon 03-05-2022 BASO # 0.1 103/ul Normal 0.0-0.1 [facility] Comment on above: Performed By: #### C BC #### [facility] [address] [address] [address] Monique Bird Basophils/100 WBC (Bld) 0.7 % Normal 0.2-2.0 [facility] Comment on above: Performed By: #### C BC #### [facility] [address] [address] [address] Monique Bird EO # 0.1 103/ul Normal 0.0-0.7 [facility] Comment on above: Performed By: #### C BC #### [facility] [address] [place] [address] Dr. Monique Bird Eosinophils/100 WBC (Bld) 1.0 % Normal 0.9-7.0 [facility] Comment on above: Performed By: #### C BC #### [facility] [address] [place] [address] Dr. Monique Bird Erythrocyte distribution width (RBC) [Ratio] 12.5 % Normal 11.0-15.0 [facility] Comment on above: Performed By: #### C BC #### [facility] [address] [place] [address] Dr. Monique Bird Hematocrit (Bld) [Volume fraction] 36.4 % Critically low 42.0-54.0 [facility] Comment on above: Performed By: #### C BC #### [facility] [address] [place] [address] Dr. Monique Bird Hemoglobin (Bld) [Mass/Vol] 12.0 g/dL Critically low 14.0-18.0 [facility] Comment on above: Performed By: #### C BC #### [facility] [address] [place] [address] Dr. Monique Bird IG # 0.07 10e3/ul Critically high 0.00-0.03 [facility] Comment on above: Performed By: #### C BC #### [facility] [address] [address] [address] Monique Bird IG % 0.6 % Critically high 0.0-0.5 [facility] Comment on above: Performed By: #### C BC #### [facility] [address] [address] [address] Monique Bird LYMPH # 0.8 103/ul Critically low 1.2-3.[address] [facility] Comment on above: Performed By: #### C BC #### [facility] [address] [place] [address] Dr. Monique Bird Lymphocytes/100 WBC (Bld) 6.3 % Critically low 20.5-60.0 [facility] Comment on above: Performed By: #### C BC #### [facility] [address] [place] [address] Dr. Monique Bird MANUAL DIFF REQ NO Normal [facility] Comment on above: Performed By: #### C BC #### [facility] [address] [place] [address] Dr. Monique Bird MCH (RBC) [Entitic mass] 27.0 pg Normal 25.9-34.0 [facility] Comment on above: Performed By: #### C BC #### [facility] [address] [place] [address] Dr. Monique Bird MCHC (RBC) [Mass/Vol] 33.0 g/dL Normal 29.9-35.[address] [facility] Comment on above: Performed By: #### C BC #### [facility] [address] [place] [address] Dr. Monique Bird MCV (RBC) [Entitic vol] 82.0 fL Normal 80.0-94.[address] [facility] Comment on above: Performed By: #### C BC #### [facility] [address] [place] [address] Dr. Monique Bird MONO # 1.0 103/ul Critically high 0.3-0.8 [facility] Comment on above: Performed By: #### C BC #### [facility] [address] [id number] Monique Bird Monocytes/100 WBC (Bld) 8.1 % Normal 1.7-12.0 [facility] Comment on above: Performed By: #### C BC #### [facility] [address] [address] [address] Monique Bird NEUT # 10.1 103/ul Critically high 1.4-6.5 [facility] Comment on above: Performed By: #### C BC #### [facility] [address] [address] [address] Monique Bird Neutrophils/100 WBC (Bld) 83.3 % Critically high 43.0-75.0 [facility] Comment on above: Performed By: #### C BC #### [facility] [address] [place] [address] Dr. Moniuqe Bird Platelet mean volume (Bld) [Entitic vol] 9.7 fL Normal 9.5-13.5 [facility] Comment on above: Performed By: #### C BC #### [facility] [address] [address] [address] Monique Bird PLT 462 103/ul Critically high 150-450 [facility] Comment on above: Performed By: #### C BC #### [facility] [address] [place] [address] Dr. Monique Bird RBC 4.44 106/ul Critically low 4.70-6.10 [facility] Comment on above: Performed By: #### C BC #### [facility] [address] [address] [address] Monique Bird WBC 12.1 103/ul Critically high 4.0-11.0 [facility] Comment on above: Performed By: #### C BC #### [facility] [address] [address] [address] Monique Bird PROF 14(COMP METB)on 03-05-2 022 Albumin [Mass/Vol] 2.6 g/dL Critically low 3.4-5.0 [facility] Comment on above: Performed By: #### C MP #### [facility] [address] [address] [address] Monique Bird Albumin/Globulin [Mass ratio] 0.5 {ratio} Normal [facility] Comment on above: Performed By: #### C MP #### [facility] [address] [address] [address] Monique Bird ALP [Catalytic activity/Vol] 114 U/L Normal 46-116 [facility] Comment on above: Performed By: #### C MP #### [facility] [address] [place] [address] Dr. Monique Bird ALT [Catalytic activity/Vol] 25 U/L Normal 16-63 [facility] Comment on above: Performed By: #### C MP #### [facility] [address] [place] [address] Dr. Monique Bird Anion gap [Moles/Vol] 13.6 mmol/L Normal [facility] Comment on above: Performed By: #### C MP #### [facility] [address] [place] [address] Dr. Monique Bird AST [Catalytic activity/Vol] 21 U/L Normal 15-37 [facility] Comment on above: Performed By: #### C MP #### [facility] [address] [place] [address] Dr. Monique Bird Bilirubin [Mass/Vol] 0.5 mg/dL Normal 0.2-1.0 [facility] Comment on above: Performed By: #### C MP #### [facility] [address] [place] [address] Dr. Monique Bird Calcium [Mass/Vol] 9.1 mg/dL Normal 8.5-10.1 [facility] Comment on above: Performed By: #### C MP #### [facility] [address] [place] [address] Dr. Monique Bird Chloride [Moles/Vol] 90 mmol/L Critically low 98-107 [facility] Comment on above: Performed By: #### C MP #### [facility] [address] [place] [address] Dr. Monique Bird CO2 [Moles/Vol] 27.6 mmol/L Normal 21.0-32.0 [facility] Comment on above: Performed By: #### C MP #### [facility] [address] [address] [address] Monique Bird Creatinine [Mass/Vol] 1.98 mg/dL Critically high 0.70-1.30 [facility] Comment on above: Performed By: #### C MP #### [facility] [address] [address] [address] Monique Bird EGFR-AF CYMRO 41 mL/min/1.73m2 Critically low >=60 [facility] Comment on above: Performed By: #### C MP #### [facility] [address] [address] [address] Monique Bird EGFR-NON AF CYMRO 33 mL/min/1.73m2 Critically low >=60 [facility] Comment on above: Performed By: #### C MP #### [facility] [address] [address] [address] Monique Bird Globulin (S) [Mass/Vol] 5.3 g/dL Normal [facility] Comment on above: Performed By: #### C MP #### [facility] [address] [address] [address] Monique Bird Glucose [Mass/Vol] 504 mg/dL Critically high 74-106 T [facility] [place] [facility] Comment on above: Performed By: #### C MP #### [facility] [address] [address] [address] Monique Bird Potassium [Moles/Vol] 5.2 mmol/L Critically high 3.5-5.1 [facility] Comment on above: Performed By: #### C MP #### [facility] [address] [address] [address] Monique Bird Protein [Mass/Vol] 7.9 g/dL Normal 6.4-8.2 [facility] Comment on above: Performed By: #### C MP #### [facility] [address] [address] [address] Monique Bird Sodium [Moles/Vol] 125 mmol/L Critically low 136-[address] [facility] Comment on above: Performed By: #### C MP #### [facility] [address] [place] [address] Dr. Monique Bird Urea nitrogen [Mass/Vol] 39.0 mg/dL Critically high 7.0-18.0 [facility] Comment on above: Performed By: #### C MP #### [facility] [address] [place] [address] Dr. Monique Bird Urea nitrogen/Creatinine [Mass ratio] 19.7 mg/mg Normal [facility] Comment on above: Performed By: #### C MP #### [facility] [address] [place] [address] Dr. Monique Bird CULTURE URINEon 06-27-2021 CULTURE URINE Culture Observations : No growth Normal [facility] Comment on above: Performed By: #### U RCX #### [facility] [address] [place] [address] Dr. Monique Bird UA (CLEAN/CATCH) MICROSCOPIC IF INDICATEon 06-27-2021 Bilirubin Ql (U) Negative Normal NEGATIVE [facility] Comment on above: Performed By: #### U ARMICR #### [facility] Laboratory [address] [place] [address] Dr. Monique Bird Clarity (U) CLEAR Normal CLEAR [facility] Comment on above: Performed By: #### U ARMICR #### [facility] Laboratory [address] [place] [address] Dr. Monique Bird Color (U) LT. YELLOW Normal YELLOW [facility] Comment on above: Performed By: #### U ARMICR #### [facility] Laboratory [address] [place] [address] Dr. Monique Bird Glucose Ql (U) >[address] [facility] Comment on above: Performed By: #### U ARMICR #### [facility] Laboratory [address] [place] [address] Dr. Monique Bird Hemoglobin Ql (U) Negative Normal NEGATIVE [facility] Comment on above: Performed By: #### U ARMICR #### [facility] Laboratory [address] [address] [address] Monique Bird Ketones Ql (U) Negative Normal NEGATIVE [facility] Comment on above: Performed By: #### U ARMICR #### [facility] Laboratory [address] [address] [address] Monique Bird LEUKOCYTES Negative Normal NEGATIVE [facility] Comment on above: Performed By: #### U ARMICR #### [facility] Laboratory [address] [address] [address] Monique Bird Nitrite Ql (U) Negative Normal NEGATIVE [facility] Comment on above: Performed By: #### U ARMICR #### [facility] Laboratory [address] [place] [address] Dr. Monique Bird pH (U) 6.0 [pH] Normal 5-9 [facility] Comment on above: Performed By: #### U ARMICR #### [facility] Laboratory [address] [place] [address] Dr. Monique Bird SPEC GRAVITY 1.010 Normal 1.005-<=1.02 5 [facility] Comment on above: Performed By: #### U ARMICR #### [facility] Laboratory [address] [place] [address] Dr. Monique Bird UA PROTEIN Negative Normal NEGATIVE/ TRACE [facility] Comment on above: Performed By: #### U ARMICR #### [facility] Laboratory [address] [address] [address] Monique Bird UR MICRO IND NOT INDICATED Normal [facility] Comment on above: Performed By: #### U ARMICR #### [facility] Laboratory [address] [place] [address] Dr. Monqiue Bird Urobilinogen Qn (U) 0.2 {Rowan'U}/dL Normal 0.2 - 1. 0 [facility] Comment on above: Performed By: #### U ARMICR #### [facility] Laboratory [address] [place] [address] Dr. Monique Bird Vital Signs Date Time Vital Sign Value Performing Clinician Facility 01-18-2024 15:28-0400 Blood Pressure Location Radha Orzech [facility] 01-18-2024 15:28-0400 Diastolic blood pressure 90 mm[Hg] Radha Orzech [facility] 01-18-2024 15:28-0400 Heart rate 88 /min Radha Orzech [facility] 01-18-2024 15:28-0400 Systolic blood pressure 150 mm[Hg] Radha Orzech [facility] 12-27-2023 10:51-0400 Blood Pressure Location Liu GOLD [facility] 12-27-2023 10:51-0400 Diastolic blood pressure 90 mm[Hg] Liu GOLD [facility] 12-27-2023 10:51-0400 Heart rate 90 /min Liu GOLD [facility] 12-27-2023 10:51-0400 Systolic blood pressure 160 mm[Hg] Liu GOLD [facility] 08-23-2023 11:44-0400 Blood Pressure Location Liu GOLD [facility] 08-23-2023 11:44-0400 Diastolic blood pressure 84 mm[Hg] Liu GOLD [facility] 08-23-2023 11:44-0400 Heart rate 80 /min Liu GOLD [facility] 06-03-2024 11:44-0400 Respiratory rate 16 /min Liu GOLD [facility] 08-23-2023 11:44-0400 Systolic blood pressure 132 mm[Hg] Liu GOLD [facility] 01-15-2023 10:08-0400 Diastolic blood pressure 81 mm[Hg] Liu GOLD [facility] 01-15-2023 10:08-0400 Heart rate 97 /min Liu GOLD [facility] 01-15-2023 10:08-0400 Respiratory rate 16 /min Liu GOLD [facility] 01-15-2023 10:08-0400 Systolic blood pressure 134 mm[Hg] Liu GOLD [facility] 11-16-2022 11:06-0400 Blood Pressure Location Liu GOLD [facility] 11-16-2022 11:06-0400 Diastolic blood pressure 80 mm[Hg] Liu GOLD [facility] 11-16-2022 11:06-0400 Heart rate 70 /min Liu GOLD [facility] 11-16-2022 11:06-0400 Respiratory rate 16 /min Liu GOLD [facility] 11-16-2022 11:06-0400 Systolic blood pressure 136 mm[Hg] Liu GOLD [facility] 09-30-2022 19:18-0400 Diastolic blood pressure 105 mm[Hg] Lopez Sameer [facility] 09-30-2022 19:18-0400 Heart rate 113 /min Lopez Sameer [facility] 09-30-2022 19:18-0400 Respiratory rate 18 /min Lopez Sameer [facility] 09-30-2022 19:18-0400 SaO2% (BldA) [Mass fraction] 96 % Lopez Sameer [facility] 09-30-2022 19:18-0400 Systolic blood pressure 142 mm[Hg] Lopez Sameer [facility] 09-30-2022 17:13-0400 Body temperature 98.06 [degF] Lopez Sameer [facility] 09-30-2022 17:13-0400 Diastolic blood pressure 100 mm[Hg] Lopez Sameer [facility] 09-30-2022 17:13-0400 Heart rate 122 /min Lopez Sameer [facility] 09-30-2022 17:13-0400 Respiratory rate 18 /min Lopez Sameer [facility] 09-30-2022 17:13-0400 SaO2% (BldA) [Mass fraction] 95 % Lopez Sameer [facility] 09-30-2022 17:13-0400 Systolic blood pressure 150 mm[Hg] Lopez Sameer [facility] 09-29-2022 12:13-0400 Blood Pressure Location CRUZITO MCPHERSON [facility] 09-29-2022 12:13-0400 Diastolic blood pressure 84 mm[Hg] CRUZITO MCPHERSON [facility] 09-29-2022 12:13-0400 Heart rate 74 /min CRUZITO MCPHERSON [facility] 09-29-2022 12:13-0400 Respiratory rate 16 /min CRUZITO MCPHERSON [facility] 09-29-2022 12:13-0400 Systolic blood pressure 130 mm[Hg] CRUZITO MCPHERSON [facility] Encounters Encounter Date Encounter Type Care Provider Facility Start: 10-09-2024 ambulatory Liu GOLD Facili ty:[facility] Start: 09-19-2024 ambulatory Liu GOLD Facili ty:[id number] Start: 06-26-2024 End: 06-26-2024 ambulatory Liu GOLD Facility:[facility] Start: 06-23-2024 End: 06-24-2024 Lab Drop off Liu GOLD [facility] Start: 06-23-2024 End: 06-24-2024 ambulatory Liu GOLD Facility:[facility] Start: 01-18-2024 End: 01-18-2024 ambulatory Radha X Orzech [facility] Start: 01-18-2024 End: 01-18-2024 Lab Drop off Radha X Orzech [facility] Start: 01-18-2024 End: 01-18-2024 ambulatory Radha X Orzech Facility:[facility] Start: 01-18-2024 End: 01-18-2024 Patient encounter procedure Radha X Orzech [facility] Start: 12-27-2023 End: 12-27-2023 ambulatory Liu GOLD Facility:[facility] Start: 12-27-2023 End: 12-27-2023 Patient encounter procedure Liu GOLD [facility] Start: 08-23-2023 End: 08-23-2023 ambulatory Liu GOLD Facility:[facility] Start: 08-23-2023 End: 08-23-2023 Patient encounter procedure Liu GOLD [facility] Start: 07-05-2023 End: 07-05-2023 Lab Drop off Liu GOLD [facility] Start: 07-05-2023 End: 07-05-2023 ambulatory Liu GOLD Facility:[facility] Start: 07-05-2023 End: 07-05-2023 Patient encounter procedure Liu GOLD [facility] Start: 04-06-2023 End: 04-06-2023 Patient encounter procedure Liu GOLD [facility] Start: 03-19-2023 End: 03-19-2023 Lab Drop off Liu GOLD [facility] Start: 03-19-2023 End: 03-19-2023 Patient encounter procedure Liu GOLD [facility] Start: 03-03-2023 End: 03-03-2023 ambulatory NON STAFF Facility:[facility] Start: 03-03-2023 End: 03-03-2023 ambulatory NON STAFF [facility] Work Phone: Start: 03-03-2023 End: 03-03-2023 Patient encounter procedure MD Liu Gold Work Phone: [facility] [place] Work Phone: Start: 01-15-2023 End: 01-15-2023 Patient encounter procedure Liu GOLD [facility] Start: 11-16-2022 End: 11-16-2022 Patient encounter procedure Liu GOLD [facility] Start: 09-30-2022 End: 09-30-2022 Emergency department patient visit Lopez Estrella [facility] Start: 09-29-2022 End: 09-29-2022 Lab Drop off CRUZITO MCPHERSON [facility] Start: 09-29-2022 End: 09-29-2022 Patient encounter procedure CRUZITO MCPHERSON [facility] Start: 03-05-2022 End: 03-06-[address] HUBER [...] MR Prostate WO and W contrast IV [facility] Start: 03-03-2023 MR prostate wo/w con MR prostate wo/ w con [facility] Immunizations Immunization Date Immunization Notes Care Provider Fa cility 06-18-2020 SARS-CoV-2 (COVID-19 ) mRNA BNT-162b2 vax CRUZITO MCPHERSON [facility] 05-28-2020 SARS-CoV-2 (COVID-19 ) mRNA BNT-162b2 vax CRUZITO MCPHERSON [facility] Payers Date Payer Category Payer Medicare [id number] 2023 Private Health Insurance [id number] 2023 Private Health Insurance [id number] 2023 Self-pay 1959 Medicare [id number] 1959 Private Health Insurance [id number] 1950 Unknown [id number] 2.16.84 [id number] 1950 Unknown [id number] [id number] 1950 Unknown [id number] 2.16.8 [id number] 1950 Unknown [id number] 2.16.8 [id number] 1950 Unknown [id number] 2.16.8 [id number] 1950 Unknown [id number] 2.16.8 [id number] 1950 Unknown [id number] 2.16.8 [id number] 1950 Unknown [id number] 2.16.8 [id number] 1950 Unknown [id number] 2.16.8 [id number] 1950 Unknown [id number] 2.16.8 [id number] 1950 Unknown [id number] 2.16.8 [id number] 1950 Unknown [id number] 2.16.8 [id number] Unknown [id number] 2.16.8 [id number] Social History Date Type Detail Facility Start: 09-29-2022 End: 01-18-2024 Tobacco smoking status Never smoked tobacco (finding) [facility] Tobacco smoking status Never [facility] Sex Assigned At Male [facility] Start: 1950 Sex Assigned At Male [facility] Sexual Orientation [facility] Start: 06-09-2018 Sex Male (finding) [facility] Functional Status Date Assessment Result Facility 01-18-2024 Functional Status N/A [facility] 12-27-2023 Functional Status N/A [facility] 08-23-2023 Functional Status N/A [facility] 04-06-2023 Functional Status N/A [facility] 01-15-2023 Functional Status N/A [facility] 11-16-2022 Functional Status N/A [facility] 09-30-2022 Functional Status N/A [facility] 09-29-2022 Functional Status N/A [facility] Clinical Notes 09-29-2022 to 06-26-2024 Note [...] including vitamins, herbs, eye drops, creams, and kcyr-zwl-twilmlr medicines. ??? Any problems you or family [...] tells you to take them. ??? Taking nagt-sam-tfumkjb medicines, vitamins, herbs, and supplements. General instructions [...] rectal area. ?? (more content not included)... [facility] 12-27-2023 Hospital Discharge instructions Patient Education 12/27/2023 [...] Follow these instructions at home: Medicines Take gjmz-mki-xdmhsgu and prescription medicines only as told by [...] provider. Document Revised: 11/27/2020 Document Reviewed: 11/27/2020 [employer] Patient Education 2023 [employer]. Follow Up Care 08/23/2023 12:29:54 With:RUSSELL WOOTEN, Liu aBker, URL Address: [facility] [address] , [place] [address]- [phone] When: Unknown [facility] 12-27-2023 Note Patient Education Urology Acute Urinary [...] these instructions at home: Medicines ? Take oqlg-edy-zwdraag and prescription medicines only as told by [...] provider. Document Revised: 11/27/2020 Document Reviewed: 11/27/2020 [employer] Patient Education ? 2023 [employer]. [facility] 08-23-2023 Hospital Discharge instructions Patient Education 08/23/2023 [...] Follow these instructions at home: Medicines Take areg-jor-pquukpv and prescription medicines only as told by [...] important. Where to find more information [employer] [place] of Diabetes and Digestive and Kidney Diseases: [...] depends on the type of prostatitis. Take weqr-vif-npmytuz and prescription medicines only as told by [...] provider. Document Revised: 04/12/2020 Document Reviewed: 04/12/2020 [employer] Patient Education 2022 [employer]. Follow Up Care 04/23/2023 12:26:11 With:RUSSELL WOOTEN, Liu Baker, URL Address: [facility] [address] [place] [address] [phone] When: Unknown Comments:4 mos w/ 2 PSAs [facility] 04-06-2023 Hospital Discharge instructions Patient Education 04/06/2023 [...] for your post-operative appointment in 1-2 weeks [phone] or [phone] Follow Up Care 03/18/2023 10:49:08 With:Liu GOLD Address: [facility] [address], [place] [address]- Business (1) When: Unknown Comments:Keep scheduled appointment [facility] 01-15-2023 Hospital Discharge instructions Patient Education [...] treatment? Where to find more information [employer] [place] [employer]: www.cancer.org [place] [employer]: www.auanet.org Contact a health care [...] provider. Document Revised: 09/01/2021 Document Reviewed: 09/01/2021 [employer] Patient Education 2022 [employer]. Follow Up Care 11/16/2022 12:16:28 With:RUSSELL WOOTEN, Liu Bakre, URL Address: [address] [place] [phone]- When: Unknown [facility] 11-16-2022 Hospital Discharge instructions Patient Education 11/16/2022 [...] Follow these instructions at home: Medicines Take wtta-rrb-cbgytbs and prescription medicines only as told by [...] provider. Document Revised: 11/27/2020 Document Reviewed: 11/27/2020 [employer] Patient Education 2022 [employer]. Follow Up Care 10/13/2022 15:11:59 With:Liu GOLD MD, URL Address: [facility] [address] [place] [address] [phone] When: Unknown Comments:2 months w/ PSA [facility] Hospital Discharge instructions Patient Education 09/30/2022 [...] Treatment for this condition includes: Antibiotic medicine. Thkl-lss-emdiwnh medicines to treat discomfort. Drinking enough water [...] Follow these instructions at home: Medicines Take uxeh-ztv-xyqknro and prescription medicines only as told by [...] provider. Document Revised: 10/18/2020 Document Reviewed: 10/18/2020 [employer] Patient Education 2022 [employer]. 09/30/2022 19:11:01 Hematuria, Adult Hematuria, Adult Hematuria [...] Follow these instructions at home: Medicines Take wsjo-ywk-seyctdp and prescription medicines only as told by [...] or the blood stops without treatment. Take exug-bsg-hzfmmcn and prescription medicines only as told by your health care provider. Drink enough fluid to keep your urine pale yellow. This information is not intended to replace advice given to you by your health care provider. Make sure you discuss any questions you have with your health care provider. Document Revised: 11/06/2020 Document Reviewed: 11/06/2020 [employer] Patient Education 2022 [employer]. Follow Up Care 09/30/2022 17:11:09 With:Huber Rosas Address: [address] [place] [phone]- Business (1) When:10/03/2022 19:10:51 Comments:Call the office [...] you develop any new or worsening symptoms. [facility] 09-30-2022 Evaluation + Plan note Extrac gopal from: Title:ED Note Author:Aidan SANTOYO, Talat Reyes e:09/30/22 Urinary tract infection (N39 .0: Urinary tract infection, site not specified) Orders: cephalexin, 500 mg = 1 cap(s), Oral, q12hr, X 7 day(s), # 14 cap(s), Refills(s) 0, Pharmacy: [facility]/pharmacy #[id number], 189, cm, 09/30/22 17:16:00 EDT, Height/Length Dosing, 98, kg, 09/30/22 17:16:00 EDT, Weight Dosing cephalexin, 500 mg = 1 cap(s), Cap, Oral, Once, Stop date 09/30/22 19:09:00 EDT, STAT, Start date 09/30/22 19:09:00 EDT, 09/30/22 19:09:00 EDT Automated Diff Basic Metabolic Panel CBC w/ Auto Diff eGFR Future Appointments Appointment Date:10/06/2022 09:30:00 AM Scheduled Provider: Location:[facility] Appointment Type:Urology CALL PAT FT Appointment Date:10/13/2022 01:00:00 PM Scheduled Provider: Location:[facility] Appointment Type:Urology FT Appointment Date:10/13/2022 02:30:00 PM Scheduled Provider: Location:[facility] Appointment Type:Urology FT Diagnostic Tests Pending * Urine Culture 09/30/22 [facility]07-[facility]-2023 Hospital Discharge instructions Patient Education 09/29/2022 12:59:34 [...] including vitamins, herbs, eye drops, creams, and dohh-kxa-cujsono medicines. ?Whether you are or may be [...] provider. Document Revised: 11/19/2021 Document Reviewed: 10/11/2020 [employer] Patient Education 2022 [employer]. Follow Up Care 09/24/2022 14:42:37 With:CRUZITO MCPHERSON PA-C, URL Address: [address] [place] [phone] When: Unknown Comments:Zheng copeland/ Dr. Gold [facility] evaluation + Plan note Future Appointments Appointment Date:10/06/2022 09:30:00 AM Scheduled Provider: Location:[facility] Appointment Type:Urology CALL PAT FT Appointment Date:10/13/2022 01:00:00 PM Scheduled Provider: Location:[facility] Appointment Type:Urology FT Appointment Date:10/13/2022 02:30:00 PM Scheduled Provider: Location:[facility] Appointment Type:Urology FT [facility] evaluation + Plan note Future Appointments Appointment Date:10/06/2022 09:30:00 AM Scheduled Provider: Location:[facility] Appointment Type:Urology CALL PAT FT Appointment Date:10/13/2022 01:00:00 PM Scheduled Provider: Location:[facility] Appointment Type:Urology FT Appointment Date:10/13/2022 02:30:00 PM Scheduled Provider: Location:[facility] Appointment Type:Urology FT Diagnostic Tests Pending * Urine [facility]ments Appointment Date:01/15/2023 09:45:00 AM Scheduled Provider:Liu [facility]OLD [facility] Office Visit Diagnostic Tests Pending * PSA Total 11/16/22 [facility] evaluation + Plan note Future Appointments Appointment Date:05/14/2023 11:00:00 AM Scheduled Provider:Liu GOLD MD [facility] App[facility] Type:URO Office Visit [facility] evaluation + Plan note Future Appointments Appointment Date:04/06/2023 01:00:00 PM Scheduled Provider: Location:[facility] Appointment Type:Urology FT Appointment Date:04/06/2023 01:00:00 PM Scheduled Provider: [facility] Appointment Type:US Prostate Urology (FT) Appointment Date:04/23/2023 11:00:00 AM Scheduled Provider:Liu GOLD MD [facility] App[facility] Type:URO Office Visit Appointment Date:05/14/2023 11:00:00 AM Scheduled Provider:Liu GOLD MD [facility] App[facility] Type:URO Office Visit Future Scheduled Tests Radiology* US Prostate, [facility] 04/06/23 [facility] evaluation + Plan note Future Appointments Appointment Date:04/06/2023 01:00:00 PM Scheduled Provider: Location:[facility] Appointment Type:Urology FT Appointment Date:04/06/2023 01:00:00 PM Scheduled Provider: [facility] Appointment Type:US Prostate Urology (FT) Appointment Date:04/23/2023 11:00:00 AM Scheduled Provider[facility] Office Visit Appointment Date:05/14/2023 11:00:00 AM Scheduled Provider:Liu GOLD [facility] Type:URO Office Visit Diagnostic Tests Pending * Urine Culture 03/19/23 Future Scheduled Tests Radiology* US Prostate, [facility]ments Appointment Date:04/23/2023 11:00:00 AM Scheduled Provider:Liu GOLD MD Location:[facility] Appointment Type:URO Office Visit Diagnostic Tests Pending * Prostate Histology ([facility]) [facility] App[facility]ments Appointment Date:08/23/2023 11:15:00 AM Scheduled Provider:Liu GOLD MD Location:[facility] Appointment Type:URO Office Visit Diagnostic Tests Pending * Urine Culture [facility] App[facility]ments Appointment Date:08/23/2023 11:15:00 AM Scheduled Provider:Liu GOLD MD Location:[facility] Appointment Type:URO Office Visit [facility] evaluation + Plan note Future Appointments Appointment Date:12/27/2023 10:45:00 AM Scheduled Provider:Liu GOLD MD Location:[facility] Appointment Type:URO Office Visit Diagnostic Tests Pending * PSA Total 08/23/23 [facility] evaluation + Plan note Future Appointments Appointment Date:06/26/2024 10:45:00 AM Scheduled Provider:Liu GOLD MD Location:[facility] Appointment Type:URO Office Visit Diagnostic Tests Pending * PSA Total 12/27/23 [facility] evaluation + Plan note Future Appointments Appointment Date:06/26/2024 10:45:00 AM Scheduled Provider:Liu GODL MD Location:[facility] Appointment Type:URO Office Visit Diagnostic Tests Pending * Urine Culture 01/18/24 [facility] Evaluation + Plan note Future Appointments Appointment Date:06/26/2024 10:45:00 AM Scheduled Provider:Liu GOLD MD Location:[facility] Appointment Type:URO Office Visit [facility] evaluation noteNo assessment information available [facility] Work Phone: Hospital course Narrative No data available for this section [facility] Hospital Discharge instructions No data available for this section [facility] No data available for this section [facility] Summary Purpose Family History No Family History [...] section and content) DATE CREATED AUTHOR 03/12/2022 [facility] DATE CREATED AUTHOR AUTHOR'S ORGANIZ ATION 04/10/2023 [facility] DATE CREATED AUTHOR AUTHOR'S ORGANIZ ATION 01/22/2024 [facility] DATE CREATED AUTHOR AUTHOR'S ORGANIZ ATION 06/25/2024 [facility] DATE CREATED AUTHOR AUTHOR'S ORGANIZ ATION 06/27/2024 [facility] DATE CREATED AUTHOR AUTHOR'S ORGANIZ ATION 09/03/2024 [facility] Patient Care team informatio n (unrecognized [...] BE BASED ON THE PRIMARY CLINICAL RECORDS. [facility] [employer] [facility]. provides no warranty or guarantee of the accuracy or completeness of information in this document.
[2024-09-19 07:46] VITALS: BP 184/110; PULSE 105; TEMP 36.2; O2SAT 97
[2024-09-19] MEDS: GENTAMICIN SULFATE 80 MG/2 ML VIAL 120 MG IM (07:52)
--- NOTE | 2024-09-19 07:58 | US_ITS ---
[address] [address] Patient Name: CORA RASHID MRN: [id number] date: 1950 Sex: M Assigned Patient Location: [facility] Current Patient Location: Accession/Order Number: [id number] Exam Date: 09/19/2024 13:01 Report Date: 09/19/2024 13:03 At the request of: JEFFERY WELLS MD Procedure: US prostate Ultrasound-guided prostate biopsy. Reason for exam: Abnormal prostate. FINDINGS: Ultrasound-guided biopsy was performed by the urology service. No radiologist was present at time of procedure. The prostate gland measures 5.4 x 5.2 x 3.8 cm for a prostate volume of 56 mL. Predicted PSA 6.73. US/US prostate IMPRESSION: Ultrasound-guided biopsy. Impression dictated by: Ector Kam Jr., D.O. 09/19/2024 1:03 PM Dictation Location: [place] [address] Electronically authenticated by: [id number] Y Date: 09/19/2024 13:03
[2024-09-19 08:07] VITALS: BP 200/107; PULSE 98; O2SAT 96
[2024-09-19 08:13] VITALS: BP 172/92; PULSE 94; O2SAT 96
[2024-09-19] MEDS: LIDOCAINE 2% JELLY 20 ML UR (08:14)
[2024-09-19] MEDS: LIDOCAINE HCL 1% 100 MG/10 ML MDV INJ (08:15)
--- NOTE | 2024-09-19 08:39 | P.URON_ITS ---
Urology Surgery Operative Note Operative Note Procedure Date: 09/19/24 Time Out Performed: yes Pre-op Diagnosis: Prostate cancer; active surveillance Post-op Diagnosis: same as pre-op Procedures performed: 1. Transrectal ultrasound of the prostate. 2. Prostate needle biopsies Anesthesia: local and other (Periprostatic block with 1% lidocaine) Primary Surgeon: Liu Gold Complications: None Estimated blood loss (mL): 15 Findings: Diffuse mixed echogenicity Specimens: Prostate needle biopsies Drains: None Indications for Procedures: This gentleman has a history of prostate cancer Maria Isabel score 3+3 equal 6 in just 1 core diagnosed in March 2023. His PSAs have been vacillating and the most recent is 6.9. He now presents for confirmatory biopsy of the prostate. He has signed an informed consent after risks were explained. Some of these risks include bleeding, infection, urosepsis and anesthesia to name a few. Detailed description of Procedure: The patient was kept on [place] [facility] [place] and brought into the endoscopy suite. He was rotated into the left lateral decubitus position. Timeout was done by all parties in the room. We started by using Betadine soaked sponges and accomplishing rectal swabbing x 2. We then passed 2% plain lidocaine gel per rectum. The ultrasound probe was then passed per rectum. The prostate was scanned in the transverse and sagittal views. The volume was calculated to be 77 g. We then did a Luis prostatic block with 1% plain lidocaine in the usual fashion. Needle biopsies were then taken in a mapped out scenario. We started at the left base and went towards the apex. We divided it up into the 4 levels and from each level took 2 biopsies. We then did a similar maneuver on the right side. At the end of the procedure we had 16 satisfactory cores. There was some diffuse mixed echogenicity. No discrete hypoechoic areas were noted. The probe was then removed. He was then discharged to home. He did get IM gentamicin and an oral Levaquin 750 mg preoperatively. He will resume his course of oral Cipro at home.
[2024-09-19] MEDS: LEVOFLOXACIN 750 MG TABLET PO (08:44)
== END 2024-09-19 08:45 | disposition home or self-care (01) ==
LOC: SURGOUT 07:31
PROVIDERS: PCP Family Medicine; Visit Provider Urology
PROC: (CPT 55700; principal; 2024-09-19 08:00)
DX: C61 Malignant neoplasm of prostate (principal); R97.20 Elevated prostate specific antigen [PSA]; N40.1 Benign prostatic hyperplasia with lower urinary tract symptoms; E03.9 Hypothyroidism, unspecified; E11.9 Type 2 diabetes mellitus without complications; I25.10 Atherosclerotic heart disease of native coronary artery without angina pectoris; Z95.5 Presence of coronary angioplasty implant and graft
CPT/HCPCS: 55700; 76872; J1580